=== PATIENT | male | born 1940 | race Caucasian/White ===

== ENCOUNTER 2023-11-24 09:50 | Observation (INO) ==
--- NOTE | 2023-11-24 11:24 | History & Physical Bridge Note ---
Date of Service November 24, 2023 History & Physical Bridge Note I have examined the patient, reviewed the History & Physical and in the interval since the performance of the History & Physical I have noted the following changes of clinical significance: no changes noted
--- NOTE | 2023-11-24 11:25 | Pre Anesthesia Assessment ---
Date of Service November 24, 2023 Pre Sedation Assessment Vital Signs Pulse Resp BP Pulse Ox O2 Del Method 11/24/23 10:14 16 11/24/23 10:14 68 16 153/91 H 96 Room Air Cardiovascular + regular rate and + regular rhythm + S1 normal and + S2 normal; no murmur + femoral pulses present and + radial pulses present; no JVD and no carotid bruit no edema Respiratory + respiratory effort normal; no respiratory distress and no labored breathing + clear to auscultation bilaterally; no crackles, no rales, no rhonchi and no wheezes Pre-Sedation Airway Assessment Smoking Status: Never smoker Hx Sleep Apnea: No Short, Thick Neck: Yes Thyromental Distance: < 3.5 Finger Breadths Oral Cavity: + WNL Mallampati Class: III ASA: ASA3 NPO Status Date of Last Intake of Fluids: 11/24/23 Time of Last Intake of Fluids: 08:00 Date of Last Intake of Solid Food: 11/23/23 Time of Last Intake of Solid Foods: 21:00 Procedure Planning Contraindications for Sedation: none Current Medications Reviewed: Yes Notes The planned sedation has been discussed with the patient. Informed Consent was obtained. I have identified the patient, determined the appropriateness of sedation and have assessed the patient immediately prior to the procedure. All medicine(s) and interventions are by my order.
--- NOTE | 2023-11-24 12:54 | Post Anesthesia Assessment ---
Date of Service November 24, 2023 Post Sedation Assessment Vital Signs Temp Pulse Pulse Pulse Resp BP BP 11/25/23 14:22 36.5 C 64 74 18 152/73 H 139/70 11/25/23 11:03 36.5 C 74 18 139/70 11/25/23 08:00 60 11/25/23 08:00 11/25/23 07:24 36.7 C 63 20 138/80 11/25/23 04:02 36.6 C 64 19 152/73 H 11/25/23 00:43 36.8 C 61 20 144/78 H 11/24/23 22:00 63 11/24/23 20:27 36.9 C 58 L 19 124/73 11/24/23 19:15 11/24/23 16:38 60 20 113/68 11/24/23 16:19 11/24/23 16:15 59 L 11/24/23 15:45 36.8 C 62 18 148/77 H 11/24/23 15:15 60 20 142/79 H 11/24/23 15:00 59 L 20 129/70 11/24/23 14:45 60 20 122/76 Pulse Ox O2 Del Method 11/25/23 14:22 95 11/25/23 11:03 95 Room Air 11/25/23 08:00 11/25/23 08:00 Room Air 11/25/23 07:24 95 Room Air 11/25/23 04:02 95 Room Air 11/25/23 00:43 95 Room Air 11/24/23 22:00 11/24/23 20:27 94 Room Air 11/24/23 19:15 Room Air 11/24/23 16:38 96 Room Air 11/24/23 16:19 Room Air 11/24/23 16:15 11/24/23 15:45 96 Room Air 11/24/23 15:15 94 Room Air 11/24/23 15:00 95 Room Air 11/24/23 14:45 93 Room Air Recovery Score Activity: Moves 4 extremities Respiration: Deep Breath/Cough Circulation: +/-20% PreAnes Value Consciousness: Arouseable (by name) Oxygen Saturation: > 92% On Room Air Discharge Sedation Level of Care: Phase I Post Sedation Plan On clinical assessment, the patient appears to have tolerated the sedation without complications. Patient is recovering as anticipated. Patient will continue to be monitored by nursing and may be discharged when sedation discharge criteria are met per below protocol. Upon Completions of procedure up to 15 minutes continue every 5 minute vital signs and the P.A.R. score; then discharge to a Phase I or Fast Track to Phase II per the following guidelines: * Discharge Patient to appropriate Phase II area if PAR is 8 or greater or return to pre- procedure baseline. The post - procedure orders will be as directed. * If PAR score is less than 8 or not return to pre-procedure baseline then patient will follow Phase I monitoring till PAR is reached for Phase II. The Phase I may be done in procedure room or may call to secure a Phase I area. * If naloxone or flumazenil are used for reversal, hold in Phase I for continued monitoring from when last reversal dose was given for a minimum of 60 minutes or longer pending the nurse and/or physician discretion of patient condition before discharge to Phase II. Please call the Sedation Physician to re-evaluate and complete post-note for discharge to Phase II area. Do NOT discharge from procedure sedation or Phase 1 until post- sedation trav luation note is complete by procedure /sedation MD Sedation Discharge Instructions to be given to the patient at discharge to home.
--- NOTE | 2023-11-24 13:01 | Cardiac Catheterization ---
Cardiac Cath Procedure Full Procedure Date November 24, 2023 Pre-Procedure Diagnosis Pre-Procedure Diagnosis: Angina and Positive Stress Test AUC Score AUC Score: 7 Post-Procedure Diagnosis Post-Procedure Diagnosis: Severe CAD and Normal Intracardiac Pressures Procedure(s) Performed Procedure(s) Performed: Coronary Angiography and Left Heart Cath Needle Polisher Long Bowers DO Dialysis Social Worker(s) Justyna RTR Estimated Blood Loss Estimated Blood Loss: 5cc Medication(s) Medication(s): Fentanyl, Heparin, Lidocaine 1%, Nicardipine, Nitroglycerin and Versed Summary of Findings 80% mid LAD Severe, diffusely diseased proximal ramus (small vessel) 90% proximal OM1 (small to moderate caliber vessel) Hemodynamics Rest Ao:: 110/62/100 Final Ao: 117/60/82 LV: 120/6/12 Recommendations Recommendations: PCI without planned CABG Specimens Specimens: None Radiation Exposure (mGy) 1124 Contrast (mls) 50 Fluids (cc crystalloids) Fluids (cc crystalloids): 53 Nss Anesthesia Moderate sedation. Start 1215. End 1245. Sedation monitor: Yareli ESTRELLA Procedural Complication(s) None Disposition Patient remained in Manager Pathology for PCI of the LAD. I attest to the content of the Intraoperative Record and any orders documented therein. Any exceptions are noted below. [facility] Data: Manager Pathology Cardiac Status Clinical evaluation leading to the procedure 83-year-old male with exertional shortness of breath and intermittent chest discomfort. Lexiscan nuclear stress test performed demonstrating apical ischemia. CAD Presenation: Stable angina Anginal Classification: CCS III Heart Failure: No Coronary Anatomy Dominant: Right Left Main (% Stenosis): Normal LAD (% Stenosis): Ostial (30%), Proximal (20% tubular, severe calcification), Mid (80%) and Distal (30% diffuse) Circumflex (% Stenosis): Distal (20%) OM1 (% Stenosis): Proximal (90%) OM2 (% Stenosis): Proximal (Luminal irregularities, 10%) RCA (% Stenosis): Proximal (Luminal irregularities, 20%), Mid (Luminal irregularities, 20%) and Distal (Luminal irregularities, 10%) R PDA (% Stenosis): Proximal (20%) R PL1 (% Stenosis): Normal R PL2 (% Stenosis): Normal Ramus (% Stenosis): Proximal (Severe diffuse disease, 90%) Diagnostic Physicians Name: Long Bowers, DO Closure Device Percutaneous Entry Location: Radial Closure Device: Radial Band Recommendations: PCI without planned CABG Intraprocedure Events Significant Disection: No Perforation: No
[2023-11-24] MEDS: HEPARIN (PORCINE) 1000 UNIT/ML 10 ML (CATH LAB USE ONLY) ONE (13:19)
[2023-11-24] MEDS: fentaNYL citrate PF 100 MCG/2 ML VIAL ONE (13:19)
[2023-11-24] MEDS: MIDAZOLAM HCL 1 MG/ML 2ML VIAL ONE (13:19)
[2023-11-24] MEDS: NITROGLYCERIN/D5W 100MCG/ML 20ML SYR ONE (13:20)
[2023-11-24] MEDS: niCARdipine HCL INJ 2.5 MG/ML 10 ML AMP ONE (13:20)
[2023-11-24] MEDS: IODIXANOL (VISIPAQUE) 320 MG/ML 100ML IV ONE (13:20)
[2023-11-24] MEDS: OPTIRAY 350 ONE (13:21)
--- NOTE | 2023-11-24 13:22 | Post Anesthesia Assessment ---
Date of Service November 24, 2023 Post Sedation Assessment Vital Signs Pulse Resp BP Pulse Ox O2 Del Method 11/24/23 10:14 16 11/24/23 10:14 68 16 153/91 H 96 Room Air Recovery Score Activity: Moves 4 extremities Respiration: Deep Breath/Cough Circulation: +/-20% PreAnes Value Consciousness: Fully Awake Oxygen Saturation: > 92% On Room Air Discharge Sedation Level of Care: Fast Track Phase II Post Sedation Plan On clinical assessment, the patient appears to have tolerated the sedation without complications. Patient is recovering as anticipated. Patient will continue to be monitored by nursing and may be discharged when sedation discharge criteria are met per below protocol. Upon Completions of procedure up to 15 minutes continue every 5 minute vital signs and the P.A.R. score; then discharge to a Phase I or Fast Track to Phase II per the following guidelines: * Discharge Patient to appropriate Phase II area if PAR is 8 or greater or return to pre- procedure baseline. The post - procedure orders will be as directed. * If PAR score is less than 8 or not return to pre-procedure baseline then patient will follow Phase I monitoring till PAR is reached for Phase II. The Phase I may be done in procedure room or may call to secure a Phase I area. * If naloxone or flumazenil are used for reversal, hold in Phase I for continued monitoring from when last reversal dose was given for a minimum of 60 minutes or longer pending the nurse and/or physician discretion of patient condition before discharge to Phase II. Please call the Sedation Physician to re-evaluate and complete post-note for discharge to Phase II area. Do NOT discharge from procedure sedation or Phase 1 until post- sedation evaluation note is complete by procedure /sedation MD Sedation Discharge Instructions to be given to the patient at discharge to home.
--- NOTE | 2023-11-24 13:30 | Cardiac Catheterization ---
[facility] Data: Leak Inspector Cardiac Status Clinical evaluation leading to the procedure CAD Presenation: Positive Stress Test Anginal Classification: CCS III Diagnostic Physicians Name: Jaspal Isabel MD Closure Device Recommendations: PCI without planned CABG Cardiac Cath Procedure Full Procedure Date November 24, 2023 Pre-Procedure Diagnosis Pre-Procedure Diagnosis: Angina and Positive Stress Test AUC Score AUC Score: 7 Post-Procedure Diagnosis Post-Procedure Diagnosis: Severe CAD and Successful PCI Procedure(s) Performed Procedure(s) Performed: Coronary Angiography and Drug Eluting Stent Cylinder Valve Repairer Jaspal Isabel MD Chair Installer(s) Justyna RTR Estimated Blood Loss Estimated Blood Loss: 10 Medication(s) Medication(s): Clopidogrel, Fentanyl, Heparin, Nicardipine, Nitroglycerin and Versed Summary of Findings Indication: Abnormal stress test, exertional chest symptoms Access: 6 Fr right radial artery Catheters: EBU 3.5 guide Findings: For full details of patient's coronary angiography please see cath report dictated by Dr. Bowers. Briefly, patient found to have severe mid LAD disease. Decision to proceed with PCI. -- PCI -- Antithrombotic therapy: Heparin, clopidogrel Procedure: Left main cannulated with EBU 3.5 guide Pre-procedure flow GIOVANNI 3 Heel Cementer Machine 50 wire passed across lesion into distal vessel Mid LAD lesion predilated with 2.5 compliant balloon Dilated lesion stented with 2.75 x 18 mm Neftaly drug-eluting stent Stent post-dilated with 3.25 noncompliant balloon IC vasodilators administered for spasm Post procedure GIOVANNI 3 flow, stent well expanded with minimal residual stenosis and no apparent cardiac complications. Arterial Closure: TR band Summary: 1. Successful PCI of mid LAD with single drug-eluting stent (2.75 x 18 mm Neftaly AR: Postdilated with 3.25 NC). Recommendations: To PCU for continued monitoring Loaded with clopidogrel 600 mg in Leak Inspector Dual therapy with clopidogrel, Eliquis for at least 6 months Continue statin, and ASCVD risk factor modification Consult cardiac Rehab Medical management of small branch vessel disease. If refractory symptoms PCI of small OM could be considered. Hemodynamics Rest Ao:: 110/62/100 Final Ao: 91/58/72 LV: 124/13 Recommendations Recommendations: PCI without planned CABG Specimens Specimens: None Radiation Exposure (mGy) 2130 Contrast (mls) 80 Anesthesia Moderate sedation. Start 1245. End 1314. Sedation monitor: Yareli ESTRELLA Procedural Complication(s) None Disposition PCU I attest to the content of the Intraoperative Record and any orders documented therein. Any exceptions are noted below. [facility] Card Cath Procedure Codes Moderate Sedation Procedure 1: Sedation/Anesthesia: 99855 Mod Sedation by the same physician; Ea [id number] Minutes Stenting Procedure 1: Cardiovascular Stent Procedures: 54912 Perc transcatheter placement of intracoronary stent(s), with ang PG Care Time/CCT Total # of Minutes Spent Total Time Spent with Patient: Total time spent is greater than 50% in coordination of care (as documented) at patient's floor/unit and/or counseling patient:
[2023-11-24] MEDS: CLOPIDOGREL BISULFATE 300 MG TAB ONE (13:32)
[2023-11-24] MEDS: SODIUM CHLORIDE 0.9% 750 ML IV SCH (15:52)
--- NOTE | 2023-11-24 17:10 | History & Physical Report ---
Date of Service November 24, 2023 Assessment & Plan (1) CAD (coronary artery disease): (2) A-fib: (3) Chronic anticoagulation: (4) Diabetes: (5) HTN (hypertension): (6) Hypothyroidism: Plan Mr. Dunn is an 83-year-old male that was admitted directly after cardiac catheterization for atypical chest pain with exertional dyspnea with an abnormal Lexiscan nuclear stress test showing apical ischemia in the distal LAD and L circumflex which took place 10/22/2023. As an outpatient, risk factors and PCI were discussed at length and patient proceeded for catheterization under the care of of Dr. Bowers and Dr. Isabel today with a drug-eluting stent placed in the mid-LAD. 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 September 2022 Zio monitor was evaluated with underlying rhythm sinus rhythm with 3 SVT runs with a 6 beat max. Patient admitted for continued evaluation post PCI. Interventional cardiology added Plavix to medication regimen, will trend labs in a.m. CAD: Acute Underwent PCI s/p exertional SOB with intermittent chest discomfort Failed Lexiscan nuc stress test showing apical ischemia on 10/22/23 with mild ischemia to the mid- LAD/circ artery. Admit PCU post cath JEN placed in LAD; loaded with Plavix intra-cath; continue Plavix 65 mg PO daily as outlined by interventional Cardiology TR band site without bleeding Continue baby ASA and medicinally directed therapy as outlined by interventional cardiology Atrial Fibrillation: Chronic anticoagulation: Chronic CHADsVASc: 4 (Age, DM, HTN); moderate-high risk Takes Eliquis; continue Takes Metoprolol;continue HTN: Chronic Takes HCTZ; continue Diabetes Mellitus: Chronic Takes 70/30 Most recent A1C: 10/25/23 8.0 Hypothyroidism: Chronic Takes levothyroxine;continue Most recent TSH 6.66 10/25/23 Disposition: PCP: Dr. Hartley Code Status: Full Code VTE Prophylaxis: On Eliquis I spent a total of 86 minutes coordinating, documenting, and providing care for this patient excluding time spent in the performance of separately billed services. All of the aforementioned completed while collaborating with the assigned attending physician for a full treatment plan. Please see their addendum for further details. Admission and Anticipated Discharge Date Admission Date: November 24, 2023 History of Present Illness Chief Complaint: abnormal stress test Primary Care Provider: Dr. Hartley Mr. Dunn is an 83-year-old male that was admitted directly after cardiac catheterization for atypical chest pain with exertional dyspnea with an abnormal Lexiscan nuclear stress test showing apical ischemia in the distal LAD and L circumflex which took place 10/22/2023. As an outpatient, risk factors and PCI were discussed at length and patient proceeded for catheterization under the care of of Dr. Bowers and Dr. Isabel today with a drug-eluting stent placed in the LAD. 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 September 2022 Zio monitor was evaluated with underlying rhythm sinus rhythm with 3 SVT runs with a 6 beat max. Father at 51 status post AMI Mom diabetes/CHF at age 76 No tobacco use, alcohol or recreational drug use including medical marijuana. Previous surgical history includes umbilical hernia repair, appendectomy 20 years ago, carpal tunnel surgery 8 years ago. Pt denies THORPE, dizziness, chest pain, palpitations, orthopnea, swelling, lightheadedness, fever, chills, urine or bowel changes, recent falls or trauma. Patient sitting upright in his hospital bed in no apparent distress. His T-band has been removed with no signs of bleeding. Tolerated a diet well with no N/V. Patient admitted for continued evaluation post PCI with JEN to LAD; cardiology to do medically directed therapy post cath. Interventional cardiology added Plavix to medication regimen which was bolused in the laboratory inspector and will continue tomorrow morning, will trend labs in a.m. Allergies Allergy/AdvReac Type Severity Reaction Status Date / Time No Known Allergies Allergy Unverified 10/16/23 20:29 Home Medications Medication Instructions Recorded Confirmed Type apixaban 5 mg tablet (Eliquis) 5 mg PO BID 10/16/23 11/24/23 History ascorbic acid (vitamin C) 1,000 mg 1 g PO DAILY 10/16/23 11/24/23 History tablet (Vitamin C) aspirin 81 mg tablet,delayed 81 mg PO DAILY 10/16/23 11/24/23 History release atorvastatin 40 mg tablet 40 mg PO HS 10/16/23 11/24/23 History calcium carbonate 600 mg-vitamin 1 tab PO DAILY 10/16/23 11/24/23 History D3 20 mcg (800 unit) tablet cetirizine 10 mg tablet 10 mg PO DAILY 10/16/23 11/24/23 History cholecalciferol (vitamin D3) 25 25 mcg PO DAILY 10/16/23 11/24/23 History mcg (1,000 unit) tablet (Vitamin D3) cyanocobalamin (vitamin B-12) 1,000 mcg PO DAILY 10/16/23 11/24/23 History 1,000 mcg tablet (Vitamin B-12) ferrous sulfate 325 mg (65 mg 325 mg PO DAILY 10/16/23 11/24/23 History iron) tablet (iron) fluticasone 250 mcg-salmeterol 50 1 inh inhalation BID 10/16/23 11/24/23 History mcg/dose blistr powdr for inhalation (Wixela Inhub) hydrochlorothiazide 25 mg tablet 12.5 mg PO DAILY 10/16/23 11/24/23 History insulin aspar prot-insulin aspart 150 - 200 unit subcut BID per 10/16/23 11/24/23 History 100 unit/mL (70-30) subcutaneous sliding scale pen (Novolog Mix 70-30FlexPen U-100) levothyroxine 200 mcg tablet 200 mcg PO DAILY 10/16/23 11/24/23 History magnesium 250 mg tablet 250 mg PO DAILY 10/16/23 11/24/23 History metoprolol succinate 100 mg 100 mg PO DAILY 10/16/23 11/24/23 History tablet,extended release 24 hr (Toprol XL) [id number] 250 mg-dha 90 1 cap PO DAILY 10/16/23 11/24/23 History mg-epa 160 uu-fvuq-pjif-zeax capsule (Ocuvite Adult 50 Plus) potassium 99 mg tablet 99 mg PO DAILY 10/16/23 11/24/23 History selenium 200 mcg tablet 200 mcg PO DAILY 10/16/23 11/24/23 History vitamin A 2,400 mcg capsule 2,400 mcg PO DAILY 10/16/23 11/24/23 History levothyroxine 50 mcg capsule 50 mcg PO DAILY 11/24/23 11/24/23 History losartan 25 mg tablet 25 mg PO 11/24/23 History Past Med/Surg History Medical History (Updated 11/24/23 @ 17:45 by VINOD Ybarra) CAD (coronary artery disease) Hypothyroidism Chronic anticoagulation A-fib HTN (hypertension) Surgical History (Updated 11/24/23 @ 17:58 by VINOD Ybarra) H/O hernia repair History of carpal tunnel surgery History of appendectomy Family History (Updated 11/24/23 @ 17:57 by VINOD Ybarra) Father Coronary heart disease Myocardial infarction Mother Diabetes Social History (Updated 11/24/23 @ 17:57 by VINOD Ybarra) Smoking Status: Never smoker Second Hand Exposure: No; Do You Dip or Chew Tobacco: No; Tobacco Cessation Education Requested by Patient: No Hx Alcohol Use: No Hx Substance Use: No Preferred Language: French Current Living Situation: Spouse Feels Safe at Home: Yes Review of Systems Review of Systems: Neuro: (-) Falls, trauma, slurred speech HEENT: (-) THORPE, dizziness, dysphagia, visual or auditory changes CV: (-) CP, palpitations, swelling Resp: (-) SOB GI: (-) appetite changes, N/V/D, bowel changes : (-) urinary changes Skin: (-) rashes Psych: (-) anxiety, depression Physical Exam Physical Exam: Neuro: AAOx4, PERRLA, no aphagia, memory changes, CNII-XII grossly intact HEENT: head normocephalic, moist mucus membranes CV: S1/S2, (-) M/G/R, (-) edema, cap refill < 3 seconds Resp: Lungs CTA in all arreguin. On RA GI: Abdomen S/NT/ND, Ax4 bowel sounds, (-) CVA tenderness Musculoskeletal: 5/5 B/L UE strength, 5/5 B/L LE strength. No gait disturbance Skin: (-) rashes , (-) erythema. (+)right tr-band site without bleeding Psych: euthymic mood Results & Data Results & Data Vital Signs (Past 12 Hours) Vital Signs Temp Pulse Pulse Resp BP BP Pulse Ox 11/24/23 16:38 60 20 113/68 96 11/24/23 16:19 11/24/23 16:15 59 L 11/24/23 15:45 36.8 C 62 18 148/77 H 96 11/24/23 15:15 60 20 142/79 H 94 11/24/23 15:00 59 L 20 129/70 95 11/24/23 14:45 60 20 122/76 93 11/24/23 14:30 58 L 20 118/67 93 11/24/23 14:15 60 20 112/68 93 11/24/23 14:00 63 20 143/90 H 93 11/24/23 13:45 62 20 128/69 94 11/24/23 13:30 62 20 112/70 94 11/24/23 13:20 61 20 118/69 92 11/24/23 10:14 16 11/24/23 10:14 68 16 153/91 H 96 O2 Del Method 11/24/23 16:38 Room Air 11/24/23 16:19 Room Air 11/24/23 16:15 11/24/23 15:45 Room Air 11/24/23 15:15 Room Air 11/24/23 15:00 Room Air 11/24/23 14:45 Room Air 11/24/23 14:30 Room Air 11/24/23 14:15 Room Air 11/24/23 14:00 Room Air 11/24/23 13:45 Room Air 11/24/23 13:30 Room Air 11/24/23 13:20 Room Air 11/24/23 10:14 11/24/23 10:14 Room Air Code Status & VTE Plan VTE Prophylaxis Plan VTE Prophylaxis will be ordered: Yes Supervising Physician Co-Signing Physician Notes Pt seen and examined by myself, Rita Rangel MD on the day of service. Care was coordinated with , KATE/VINOD. 83yoM with PMHx significant for DMII, HTN, HLD s/p PCI with stent placement in the LAD on 11/24. Medicine consulted for DM/med management. Seen post-procedure, was resting comfortably, sitting up in bed. at bedside. Denied acute symptoms of chest pain, SOB, palpitations or pain. RRR, breath sounds clear on exam. Appreciate interventional and cardiology recs for guideline directed med management- question of whether pt takes ARB or not, on pharmacy med list. DMII- ISS while hospitalized, holding home regimen while hospitalized. Otherwise as above. I spent a total [id number] coordinating, documenting, and providing care for this patient excluding time spent in the performance of separately billed services
[2023-11-24] MEDS: ATORVASTATIN 40 MG TAB PO SCH (20:32)
[2023-11-24] MEDS: APIXABAN 5 MG TABLET PO SCH (20:32)
--- OUTSIDE RECORDS SUMMARY | 2023-11-24 22:38 | External Medical Summary | Summary of Care ---
Author Name Unknown Organization [facility] Address [address] [facility] [place] [address] Phone [phone] Care Team Providers Care Terminal Computer Operator Name Role Phone Milton Hartley MD Primary Care Provider + Reason for Visit * Reason Onset Date Comments Advice 11/11/2023 Encounter Details Date Type Department Care Team (Late st Contact Info) Description 11/11/2023 Telephone Cardiology, [facility] [address] [place] [address] Karan Cunningham PA-C [address] [place] [address] Advice Allergies Active Allergy Reactions Criticality Noted Date Comments Ariel Inhibitors Cough 03/10/2022 Enalapril Cough 12/14/2022 Mod cough noted on scanned records from pcp Metformin Diarrhea 12/14/2022 Moderate diarrhea per scanned records from PCP Pioglitazone Hcl-Glimepiride 023 Severe SOB noted on scanned records from pcp documented as of this encounter (statuses as of 11/12/2023) Medications Medication Sig Dispensed Refills Start Date End Date Status Calcium 600+D 600-800 MG-UNIT Oral Tablet (Calcium Carb-Cholecalcifer ol) Take 1 Tab by mouth daily. 0 Active Vitamin C 1000 MG Oral Tablet Take 1 Tablet by mouth in the morning. 0 Active Ocuvite Adult Formula Oral Capsule Take 1 Cap by mouth daily. 0 Active Vitamin A 2400 MCG (8000 UT) Oral Tablet Take 1 Tab by mouth daily. 0 Active Iron 325 (65 Fe) MG Oral Tablet Take 1 Tablet by mouth in the morning. 0 Active Magnesium 250 MG Oral Tablet Take 1 Tablet by mouth in the morning. 0 Active Vitamin B12 1000 MCG Oral Tablet Extended Release Take 1 Tab by mouth daily. 0 Active Selenium 200 MCG Oral Tablet Take 2 Tablets by mouth in the morning. 0 Active Vitamin D 25 MCG (1000 UT) Oral Tablet Take 1 Tablet by mouth in the morning. 0 Active Cetirizine HCl 10 MG Oral Tablet (ZyrTEC) Take 1 Tablet by mouth in the morning. 0 Active Atorvastatin Calcium 40 MG Oral Tablet (Lipitor) Take one tablet by mouth at bedtime 90 Tablet 1 05/25/2023 Active Levothyroxine Sodium 200 MCG Oral Tablet (Levoxyl) Take one tablet by mouth daily (at least 30 min prior to breakfast or other meds) 90 Tablet 2 05/25/2023 Active Apixaban 5 MG Oral Tablet (Eliquis) Take one tablet by mouth two times a day 6 Tablet 0 02/09/2023 Active Losartan Potassium 25 MG Oral Tablet (Cozaar) Take one tablet by mouth once daily 30 Tablet 3 09/29/2022 Active hydroCHLOROthiazid e 25 MG Oral Tablet (Hydrodiuril) Take one-half tablet by mouth daily 45 Tablet 2 05/25/2023 Active Toprol XL 100 MG Oral Tablet Extended Release 24 Hour take one tablet by mouth daily 90 Tablet 3 08/13/2023 Active NovoLOG Mix 70/30 FlexPen (70-30) 100 UNIT/ML Subcutaneous Suspension Pen-injector (NovoLOG MIX 70/30) injects 150 units under the skin twice a day 270 mL 3 08/23/2023 Active Fluticasone-Salmet sadie 250-50 MCG/ACT Inhalation Aerosol Powder Breath Activated (Wixela Inhub) 1 puff inhaled orally 2 times per day 180 Each 3 08/23/2023 Active Additional Information Patient taking differently:Inhalation,Patient taking once daily, Reported on 10/15/2023 BD Pen Needle Nikole U/F 32G X 4 MM (Insulin Pen Needle) use to inject insulin twice a day 200 Each 3 08/31/2023 Active [facility] Melatonin Gummies 1 MG Oral Tablet Chewable (Melatonin) Take 3 mg by mouth at bedtime. 0 Active Levothyroxine Sodium 50 MCG Oral Tablet (Levoxyl) Take 1 tablet by mouth daily in the morning along with the 200 mcg tablet. 90 Tablet 3 10/28/2023 Active Aspirin 81 MG Oral Capsule Take 1 Tablet by mouth in the morning. 0 Active Potassium Chloride Josefina ER 10 MEQ Oral Tablet Extended ReleaseIndications :Hypokalemia Take 1 Tablet by mouth once a day on Wednesday, Wednesday, and Wednesday only. 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) 10/11/2023 COVID-19, mRNA, LNP-s, PF, B ooster, 100mcg/0.5mg (Moderna) 01/13/2022,08/05/2021 Covid-19, Mrna, Lnp-s, Pf, B ivalent, 30 Mcg, IM, 12 yrs and above (Pfizer) 07/14/2022 Seasonal Influenza, Trivalent, Adjuvanted, 65+ y rs 10/06/2021 TD - Tetanus/Diptheria (ADULT) 06/23/2022 Zoster Vaccine Recombinant (Shingrix) 10/06/2021 documented as of this encounter Social History Tobacco Use Types Packs/Day Years Used Date Smoking Tobacco: Never Smokeless Tobacco: Never Alcohol Use Standard Drinks/Week Comments Yes 7 (1 standard drink = 0.6 oz pure alcohol) beer a night or every other night PHQ-2 Answer Date Recorded PHQ Adult Total Score 0 10/15/2023 Sex and Gender Information Value Date Recorded Sex Assigned at Male 10/14/2022 1:31 PM EST Gender Identity Male 10/14/2022 1:31 PM EST Sexual Orientation Straight 10/14/2022 1: 31 PM EST Job Start Date Occupation Industry Not on file Not on file Not on file documented as of this encounter Miscellaneous Notes * Telephone Encounter - Cristopher Del Cid RN - 11/12/2023 2:12 PM EST MY G sent to the patient. * Telephone Encounter - Karan Cunningham PA-C - 11/11/2023 12:45 PM EST Recommend continuing Levothyroxine at 250 mcg/day for now. Repeat TSH in late November or early December. Karan Cunningham PA-C Department of Cardiology * Telephone Encounter - Lorrie Mares OSA - 11/11/2023 12:13 PM EST Pt stopped by check out today after his EKG and asked that I send a message to Karan. Pt is wanting to know if he can increase his thyroid mediacation because he is still having irregular heartbeats. Please advise. documented in this encounter Plan of Treatment Upcoming Encounters Date Type Department Care Team (Late st Contact Info) Description 11/30/2023 10:20 AM EST Laboratory Laboratory [address] [place] [phone] [place] [address] 02/10/2024 1:00 PM EDT Office Visit Cardiology [address] [place] [address] Karan Cunningham PA-C [address] [place] [address] Health Maintenance Due Date Last Done Comments Pneumococcal Vaccine: 65+ Years (1 of 2 - PCV) 1946 Albumin/Creatinine Ratio 1958 Zoster Vaccines (2 of 2) 12/01/2021 10/06/2021 DTaP,Tdap,and Td Vaccines (1 - Tdap) 06/24/2022 06/23/2022 *SPIROMETRY ONCE FOR ASTHMA-ADULT 10/17/2022 Influenza Vaccine (FLU shot) (#1) 2023 10/06/2021, 10/06/2021 Diabetic Eye Exam 11/19/2023 11/19/2022, , 08/14/2021 HbA1c 04/24/2024 10/25/2023 Depression Screening 10/15/2024 10/15/2023 Diabetic Foot Exam 10/15/2024 10/15/2023 GFR 11/04/2024 11/04/2023, 09/28, 02/09/2023, Additional history exists TSH 11/04/2024 11/04/2023, 09/28, 10/16/2023, Additional history exists COVID-19 Vaccine Completed 10/11/2023, , 01/13/2022, Additional history exists GARDASIL-HPV IMMUNIZATION SERIES Aged Out No longer eligible based on patient's age to complete this topic Hepatitis B Aged Out No longer eligi ble based on patient's age to complete this topic MENINGOCOCCAL (MENACTRA/MENVEO) Aged Out No longer eligible based on patient's age to complete this topic documented as of this encounter Medical Devices Not on filedocumented as of this encounter Care Teams Terminal Computer Operator Relationship Specialty Start Date End Date Milton Hartley MD [address] [place] [address] PCP - General Internal Medicine 02/25/21 documented as of this encounter
--- OUTSIDE RECORDS SUMMARY | 2023-11-24 22:38 | External Medical Summary | Summary of Care ---
Author Name Unknown Organization [facility] Address [address] [facility] [place] [address] Phone [phone] Care Team Providers Care Firearms Inspector Name Role Phone Milton Hartley MD Primary Care Provider + Reason for Visit * Reason Onset Date Comments Medication Refill 11/11/2023 Encounter Details Date Type Department Care Team (Late st Contact Info) Description 11/11/2023 Refill Cardiology, [facility] [address] [place] [address] Elsy Abebe PA-C [address] [place] [address] Palpitations*; Paroxysmal A-fib (HCC); RASMUSSEN (dyspnea on exertion) Allergies Active Allergy Reactions Criticality Noted Date Comments Ariel Inhibitors Cough 03/10/2022 Enalapril Cough 12/14/2022 Mod cough noted on scanned records from pcp Metformin Diarrhea 12/14/2022 Moderate diarrhea per scanned records from PCP Pioglitazone Hcl-Glimepiride 023 Severe SOB noted on scanned records from pcp documented as of this encounter (statuses as of 11/11/2023) Medications Medication Sig Dispensed Refills Start Date [...] ER 10 MEQ Oral Tablet Extended ReleaseIndications :Paroxysmal A-fib (HCC),RASMUSSEN (dyspnea on exertion),Palpitat ions Take 1 Tablet by mouth once a day on Wednesday, Wednesday, and Wednesday only. 40 Tablet 3 11/12/2023 Active Potassium Chloride Josefina ER 10 MEQ Oral Tablet Extended ReleaseIndications :Hypokalemia Take 1 Tablet by mouth once a day on Wednesday, Wednesday, and Wednesday only. 14 Tablet 5 10/20/2023 4 Discontinue d(Refill) documented as of this encounter (statuses as of 11/11/2023) Active Problems Problem Noted Date Diagnosed Date [...] as of this encounter (statuses as of 11/11/2023) Immunizations Name Administration Dates Next Due COVID-19 mRNA, LNP-s, No Pre serve, 2-Dose Series (Moderna) 11/22/2020,10/25/2020 COVID-19, MRNA-LNP, 23-24, P F, 30 MCG/0.3 mL, 12 YRS AND ABOVE, IM ([facility]) 10/11/2023 COVID-19, mRNA, LNP-s, PF, B ooster, [...] encounter Miscellaneous Notes * Telephone Encounter - Elsy Abebe PA-C - 11/11/2023 1:37 PM ESTSigned Prescriptions: Disp Refills Potassium Chloride Josefina ER 10 MEQ Oral Tab*40 Tab*3 Sig: Take 1 Tablet by mouth once a day on Wednesday, Wednesday, and Wednesday only. Authorizing Provider: ELSY ABEBE * Telephone Encounter - Nicolasa Palacio RN - 11/11/2023 1:30 PM ESTPending Prescriptions: Disp Refills Potassium Chloride Josefina ER 10 MEQ Oral Tab*40 Tab*3 Sig: Take 1 Tablet by mouth once a day on Wednesday, Wednesday, and Wednesday only. * Telephone Encounter - Nicolasa Palacio RN - 11/11/2023 1:28 PM EST Pharmacy asking for 90 day, this was ordered by Cardiology * Telephone Encounter - Vonda Olguin OSA - 11/11/2023 10:58 AM EST Did you pend patient's preferred pharmacy and medication before forwarding?yes Pharmacy: [id number] [id number] [facility] Pending Prescriptions: Disp Refills Potassium Chloride Josefina ER 10 MEQ Oral Ta*14 Tab*5 Sig: Take 1 Tablet by mouth once a day on Wednesday, Wednesday, and Wednesday only. Last Visit: 12/11/2022 (in office), Visit date not found (telemedicine) Next Visit: Visit date not found If no future appointments scheduled, and last appointment is greater than a year ago, please schedule patient for a follow-up appointment Last date the medication was ordered: 10/20/23 90 day supply request Is this request for a controlled substance?No Urine Drug Screen:No results found for this or any previous visit. Patient Phone Numbers Labs: Lab Results Component Value Date/Time CREAT 1.3 (H) 11/04/2023 02:50 PM CREAT 1.13 02/09/2023 12:00 AM POTASSIUM 4.1 11/04/2023 02:50 PM POTASSIUM 4.1 02/09/2023 12:00 AM TSH 6.66 (H) 11/04/2023 02:50 PM LDLCALC 10 02/09/2023 12:00 AM ALT 42 02/25/2021 10:57 AM documented in this encounter Plan of Treatment Upcoming Encounters Date Type Department Care Team (Late st Contact Info) Description 11/30/2023 10:20 AM EST Laboratory Laboratory [address] [place] [phone] [address] [place] [address] 02/10/2024 1:00 PM EDT Office Visit Cardiology [address] [place] [address] Elsy Abebe PA-C [address] [place] [address] Health Maintenance Due Date Last Done Comments Pneumococcal Vaccine: 65+ Years (1 - PCV) 1946 Albumin/Creatinine Ratio 1958 Hepatitis B (1 of 3 - Risk 3-dose series) 2000 Zoster Vaccines (2 of 2) 12/01/2021 10/06/2021 [...] Not on filedocumented as of this encounter Visit Diagnoses Diagnosis Palpitations- Primary Paroxysmal A-fib (HCC) Atrial fibrillation RASMUSSEN (dyspnea on exertion) Other dyspnea and respiratory abnormality documented in this encounter Care Teams Firearms Inspector Relationship Specialty Start Date End Date Milton Hartley MD [address] [place] [address] PCP - General Internal Medicine 02/25/21 documented as of this encounter
--- OUTSIDE RECORDS SUMMARY | 2023-11-24 22:39 | External Medical Summary | Summary of Care ---
Author Name Unknown Organization [facility] Address [address] [facility] [place] [address] Phone [phone] Care Team Providers Care Network Operations Center Technician Name Role Phone Milton Hartley MD Primary Care Provider + Reason for Visit * Reason Onset Date Comments Test Results 11/03/2023 Encounter Details Date Type Department Care Team (Late st Contact Info) Description 11/03/2023 Telephone Cardiology, [facility] [address] [place] [address] Karan Cunningham PA-C [address] [place] [address] Test Results Allergies Active Allergy Reactions Criticality Noted Date Comments Ariel Inhibitors Cough 03/10/2022 Enalapril Cough 12/14/2022 Mod cough noted on scanned records from pcp Metformin Diarrhea 12/14/2022 Moderate diarrhea per scanned records from PCP Pioglitazone Hcl-Glimepiride 023 Severe SOB noted on scanned records from pcp documented as of this encounter (statuses as of 11/05/2023) Medications Medication Sig Dispensed Refills Start Date End Date Status Calcium 600+D 600-800 MG-UNIT Oral Tablet (Calcium Carb-Cholecalciferol ) Take 1 Tab by mouth daily. 0 [...] once daily 30 Tablet 3 09/29/2022 Active hydroCHLOROthiazide 25 MG Oral Tablet (Hydrodiuril) Take one-half [...] a day 270 mL 3 08/23/2023 Active Fluticasone-Salmeter ol 250-50 MCG/ACT Inhalation Aerosol Powder Breath Activated [...] mg by mouth at bedtime. 0 Active Potassium Chloride Josefina ER 10 MEQ Oral Tablet Extended ReleaseIndications:H ypokalemia Take 1 Tablet by mouth once a day on Wednesday, Wednesday, and Wednesday only. 14 Tablet 5 10/20/2023 Active Levothyroxine Sodium 50 MCG Oral Tablet (Levoxyl) Take 1 tablet by mouth daily in the morning along with the 200 mcg tablet. 90 Tablet 3 10/28/2023 Active Aspirin 81 MG Oral Capsule Take 1 Tablet by mouth in the morning. 0 Active documented as of this encounter (statuses as of 11/05/2023) Active Problems Problem Noted Date Diagnosed Date [...] as of this encounter (statuses as of 11/05/2023) Immunizations Name Administration Dates Next Due COVID-19 mRNA, LNP-s, No Pre serve, 2-Dose Series (Moderna) 11/22/2020,10/25/2020 COVID-19, MRNA-LNP, 23-24, P F, 30 MCG/0.3 mL, 12 YRS AND ABOVE, IM ([facility]) 10/11/2023 COVID-19, mRNA, LNP-s, PF, B [...] encounter Miscellaneous Notes * Telephone Encounter - Sergio Umaña LPN - 11/03/2023 4:19 PM EST Sent patient a [employer] message to make aware. ----- Message from Karan Cunningham PA-C sent at 11/03/2023 1:12 PM EST ----- ok documented in this encounter Plan of Treatment Upcoming Encounters Date Type Department Care Team (Late st Contact Info) Description 11/30/2023 10:20 AM EST Laboratory Laboratory [address] [place] [phone] [address] [place] [address] 02/10/2024 1:00 PM EDT Office Visit Cardiology [address] [place] [address] Karan Cunningham PA-C [address] [place] [address] Health Maintenance Due Date Last Done Comments HbA1c 1946 Pneumococcal Vaccine: 65+ Years (1 - PCV) 1946 Albumin/Creatinine Ratio 1958 Hepatitis B (1 of 3 - Risk 3-dose series) 2000 Zoster Vaccines (2 of 2) 12/01/2021 10/06/2021 DTaP,Tdap,and Td Vaccines (1 - Tdap) 06/24/2022 06/23/2022 *SPIROMETRY ONCE FOR ASTHMA-ADULT 10/17/2022 Influenza Vaccine (FLU shot) (#1) 2023 10/06/2021, 10/06/2021 Diabetic Eye Exam 11/19/2023 11/19/2022, , 08/14/2021 Depression Screening 10/15/2024 10/15/2023 Diabetic Foot Exam 10/15/2024 10/15/2023 GFR 11/04/2024 11/04/2023, 01/25, 02/25/2021 TSH 11/04/2024 11/04/2023, 02/25/2021 COVID-19 Vaccine Completed 10/11/2023, , 01/13/2022, Additional history exists GARDASIL-HPV IMMUNIZATION SERIES Aged Out No longer eligible based on patient's age to complete this topic MENINGOCOCCAL (MENACTRA/MENVEO) Aged Out No longer eligible based on patient's age to complete this topic documented as of this encounter Medical Devices Not on filedocumented as of this encounter Care Teams Network Operations Center Technician Relationship Specialty Start Date End Date Milton Hartley MD [address] [place] [address] PCP - General Internal Medicine 02/25/21 documented as of this encounter
--- OUTSIDE RECORDS SUMMARY | 2023-11-24 22:39 | External Medical Summary | Summary of Care ---
Author Name Unknown Organization [facility] Address [address] [facility] [place] [address] Phone [phone] Care Team Providers Care Ribbon Cutter Name Role Phone Milton Hartley MD Primary Care Provider + Reason for Visit * Reason Onset Date Comments Test Results 11/05/2023 Encounter Details Date Type Department Care Team (Late st Contact Info) Description 11/05/2023 Telephone Cardiology, [facility] [address] [place] [address] Karan Cunningham PA-C [address] [place] [address] Test Results Allergies Active Allergy Reactions Criticality [...] MCG/0.3 mL, 12 YRS AND ABOVE, IM ([facility]) 10/11/2023 COVID-19, mRNA, LNP-s, PF, [...] Telephone Encounter - Sergio Umaña LPN - 11/05/2023 1:27 PM EST Sent patient a [employer] message to make aware. Labs ordered. ----- Message from Karan Cunningham PA-C sent at 11/05/2023 1:10 PM EST ----- Increase hydration. Stop ferrous sulfate Repeat TSH and CBC in 8 weeks documented in this encounter Plan of Treatment Upcoming Encounters Date Type Department Care Team (Late st Contact Info) Description 11/30/2023 10:20 AM EST Laboratory Laboratory [address] [place] [phone] [place] [address] [place] [address] 02/10/2024 1:00 PM EDT Office Visit Cardiology [address] [place] [address] Karan Cunningham PA-C [address] [place] [address] Scheduled Orders Name Type Priority Associated Diagnoses Orde r Schedule TSH WITH FREE T4 IF INDICATED Lab Routine Hypothyroidism due to acquired atrophy of thyroid Expected: 01/04/2024 (Approximate), Expires: 11/05/2024 CBC Lab Routine Abnormal CBC Expected: 01/04/2024 (Approximate), Expires: 11/05/2024 Health Maintenance Due Date Last Done Comments [...] as of this encounter Visit Diagnoses Diagnosis Abnormal CBC- Primary Other abnormal blood chemistry Hypothyroidism due to acquired atrophy of thyroid documented in this encounter Care Teams Ribbon Cutter Relationship Specialty Start Date End Date Milton Hartley MD [address] [place] [address] PCP - General Internal Medicine 02/25/21 documented as of this encounter
--- OUTSIDE RECORDS SUMMARY | 2023-11-24 22:39 | External Medical Summary | Summary of Care ---
Author Name Unknown Organization [facility] Address [address] [facility] [place] [address] Phone [phone] Care Team Providers Care Trauma Therapist Name Role Phone Milton Hartley MD Primary Care Provider + Reason for Visit * Reason Onset Date Comments Test Results 11/08/2023 Encounter Details Date Type Department Care Team (Late st Contact Info) Description 11/08/2023 Telephone Cardiology, [facility] [address] [place] [address] Karan Cunningham PA-C [address] [place] [address] Test Results Allergies Active Allergy Reactions Criticality Noted Date Comments Ariel Inhibitors Cough 03/10/2022 Enalapril Cough 12/14/2022 Mod cough noted on scanned records from pcp Metformin Diarrhea 12/14/2022 Moderate diarrhea per scanned records from PCP Pioglitazone Hcl-Glimepiride 023 Severe SOB noted on scanned records from pcp documented as of this encounter (statuses as of 11/08/2023) Medications Medication Sig Dispensed Refills Start Date [...] as of this encounter (statuses as of 11/08/2023) Active Problems Problem Noted Date Diagnosed Date [...] as of this encounter (statuses as of 11/08/2023) Immunizations Name Administration Dates Next Due COVID-19 mRNA, LNP-s, No Pre serve, 2-Dose Series (Moderna) 11/22/2020,10/25/2020 COVID-19, MRNA-LNP, 23-24, P F, 30 MCG/0.3 mL, 12 YRS AND ABOVE, IM ([facility]) 10/11/2023 COVID-19, mRNA, LNP-s, PF, B [...] encounter Miscellaneous Notes * Telephone Encounter - Leslie Bonilla CMA - 11/08/2023 12:10 PM EST My g sent. * Telephone Encounter - Leslie Bonilla CMA - 11/08/2023 12:09 PM EST ----- Message from Karan Cunningham PA-C sent at 11/06/2023 8:05 AM EST ----- CXR OK documented in this encounter Plan of Treatment Upcoming Encounters Date Type Department Care Team (Late st Contact Info) Description 11/30/2023 10:20 AM EST Laboratory Laboratory [address] [place] [phone] [facility] [address] [place] [address] 02/10/2024 1:00 PM EDT Office Visit Cardiology [address] [place] [address] Karan Cunningham PA-C [address] [place] [address] Health Maintenance Due Date Last Done Comments [...] filedocumented as of this encounter Care Teams Trauma Therapist Relationship Specialty Start Date End Date Milton Hartley MD [address] [place] [address] PCP - General Internal Medicine 02/25/21 documented as of this encounter
--- OUTSIDE RECORDS SUMMARY | 2023-11-24 22:39 | External Medical Summary ---
Author Name Unknown Address Unknown Organization [id number]:LABORATORY [facility] [place] [address] [place] [address] Laboratory Report Ordering Provider Test Date Status STEPH CHINO 11/04/2023 14:50:19 Final Anticoagulation may affect t esting. Refer to [facility] Test Catalog for a list of effects. Observation Date Value Abnormality Reference (Units ) Status aPTT panel - Platelet poor plasma 11/04/2023 14:50:19 39 Above high normal 21-38 (seconds) Final Performing Location LABORATORY [facility] - [address] [place] [address]
--- OUTSIDE RECORDS SUMMARY | 2023-11-24 22:39 | External Medical Summary ---
Author Name Unknown Address Unknown Organization [id number]:LAB[facility]ATORY [facility] [place] - [address] [place] [address] Laboratory Report Ordering Provider Test Date Status MIS CHIN 11/04/2023 14:50:06 Final Observation Date Value Abnormality Reference (Units ) Status Iron 11/04/2023 14:50:06 118 45-176 (ug /dL) Final Iron-binding capacity 11/04/2023 14:50:06 316 250-425 (ug/dL) Final Transferrin Sat % 11/04/2023 14:50:06 37 15 -55 (%) Final Performing Location LABORATORY [facility] - [address] [place] [address]
--- OUTSIDE RECORDS SUMMARY | 2023-11-24 22:39 | External Medical Summary | Summary of Care ---
Author Name Unknown Organization [facility] Address [address] [facility] [place] [address] Phone [phone] Care Team Providers Care Auto Parts Professional Name Role Phone Milton Hartley MD Primary Care Provider + Reason for Visit * Reason Onset Date Comments Test Results 11/03/2023 Encounter Details Date Type Department Care Team (Late st Contact Info) Description 11/03/2023 Telephone Cardiology, [facility] [address] [place] [address] Karan Cunningham PA-C [address] [place] [address] Test Results Allergies Active Allergy Reactions Criticality Noted Date Comments Ariel Inhibitors Cough 03/10/2022 Enalapril Cough 12/14/2022 Mod cough noted on scanned records from pcp Metformin Diarrhea 12/14/2022 Moderate diarrhea per scanned records from PCP Pioglitazone Hcl-Glimepiride 023 Severe SOB noted on scanned records from pcp documented as of this encounter (statuses as of 11/03/2023) Medications Medication Sig Dispensed Refills Start Date [...] as of this encounter (statuses as of 11/03/2023) Active Problems Problem Noted Date Diagnosed Date [...] as of this encounter (statuses as of 11/03/2023) Immunizations Name Administration Dates Next Due COVID-19 mRNA, LNP-s, No Pre serve, 2-Dose Series (Moderna) 11/22/2020,10/25/2020 COVID-19, MRNA-LNP, 23-24, P F, 30 MCG/0.3 mL, 12 YRS AND ABOVE, IM ([facility]) 10/11/2023 COVID-19, mRNA, LNP-s, PF, B [...] 11/03/2023 4:19 PM EST Sent patient a [employer] message to make aware. ----- Message from Karan Cunningham PA-C sent at 11/03/2023 1:12 PM EST ----- ok documented in this encounter Plan of Treatment Upcoming Encounters Date Type Department Care Team (Late st Contact Info) Description 11/30/2023 10:20 AM EST Laboratory Laboratory [address] [place] [phone] [address] [place] [address] 02/10/2024 1:00 PM EDT Office Visit Cardiology [address] [place] [address] Karan Cunningham PA-C [address] [place] [address] Health Maintenance Due Date Last Done Comments HbA1c 1946 Pneumococcal Vaccine: 65+ Years (1 - PCV) 1946 Albumin/Creatinine Ratio 1958 Hepatitis B (1 of 3 - Risk 3-dose series) 2000 Zoster Vaccines (2 of 2) 12/01/2021 10/06/2021 TSH 02/25/2022 02/25/2021 DTaP,Tdap,and Td Vaccines (1 - Tdap) 06/24/2022 06/23/2022 *SPIROMETRY ONCE FOR ASTHMA-ADULT 10/17/2022 Influenza Vaccine (FLU shot) (#1) 2023 10/06/2021, 10/06/2021 Diabetic Eye Exam 11/19/2023 11/19/2022, , 08/14/2021 GFR 02/10/2024 02/09/2023, 02/25/2021 Depression Screening 10/15/2024 10/15/2023 Diabetic Foot Exam 10/15/2024 10/15/2023 COVID-19 Vaccine Completed 10/11/2023, , 01/13/2022, Additional history exists GARDASIL-HPV IMMUNIZATION SERIES Aged Out No longer eligible based on patient's age to complete this topic MENINGOCOCCAL (MENACTRA/MENVEO) Aged Out No longer eligible based on patient's age to complete this topic documented as of this encounter Medical Devices Not on filedocumented as of this encounter Care Teams Auto Parts Professional Relationship Specialty Start Date End Date Milton Hartley MD [address] [place] [address] PCP - General Internal Medicine 02/25/21 documented as of this encounter
--- OUTSIDE RECORDS SUMMARY | 2023-11-24 22:39 | External Medical Summary | Summary of Care ---
Author Name Unknown Organization [facility] Address [address] [facility] [place] [address] Phone [phone] Care Team Providers Care Obstetric Assistant Name Role Phone Milton Hartley MD Primary Care Provider + Reason for Visit * Reason Onset Date Comments Test Results 11/03/2023 Encounter Details Date Type Department Care Team (Late st Contact Info) Description 11/03/2023 Telephone Cardiology, [facility] [address] [place] [address] Karan Cunningham PA-C [address] [place] [address] Test Results Allergies Active Allergy Reactions Criticality [...] MCG/0.3 mL, 12 YRS AND ABOVE, IM ([facility]) 10/11/2023 COVID-19, mRNA, LNP-s, PF, B [...] 11/03/2023 4:19 PM EST Sent patient a [employer] message to make aware. ----- Message from Karan Cunningham PA-C sent at 11/03/2023 1:12 PM EST ----- ok documented in this encounter Plan of Treatment Upcoming Encounters Date Type Department Care Team (Late st Contact Info) Description 11/30/2023 10:20 AM EST Laboratory Laboratory [address] [place] [phone] [address] [place] [address] 02/10/2024 1:00 PM EDT Office Visit Cardiology [address] [place] [address] Karan Cunningham PA-C [address] [place] [address] Health Maintenance Due Date Last Done Comments [...] filedocumented as of this encounter Care Teams Obstetric Assistant Relationship Specialty Start Date End Date Milton Hartley MD [address] [place] [address] PCP - General Internal Medicine 02/25/21 documented as of this encounter
--- OUTSIDE RECORDS SUMMARY | 2023-11-24 22:39 | External Medical Summary | Summary of Care ---
Author Name Unknown Organization [facility] Address [address] [facility] [address] Phone [phone] Care Team Providers Care Ski Lift Mechanic Name Role Phone Milton Hartley MD Primary Care Provider + Reason for Visit * Reason Comments Outpatient Testing Encounter Details Date Type Department Care Team (Late st Contact Info) Description 11/04/2023 2:50 PM EST Laboratory Laboratory [address] [place] [phone] [facility] [address] [place] [address] Hypokalemia; Hypothyroidism due to acquired atrophy of thyroid; Abnormal nuclear stress test; RASMUSSEN (dyspnea on exertion); Atypical chest pain; Tachy-daylin syndrome (HCC); Palpitations; Paroxysmal atrial fibrillation (HCC); Primary hypertension; Dyslipidemia, goal LDL below 70 Allergies Active Allergy Reactions Criticality Noted Date Comments Ariel Inhibitors Cough 03/10/2022 Enalapril Cough 12/14/2022 Mod cough noted on scanned records from pcp Metformin Diarrhea 12/14/2022 Moderate diarrhea per scanned records from PCP Pioglitazone Hcl-Glimepiride 023 Severe SOB noted on scanned records from pcp documented as of this encounter (statuses as of 11/04/2023) Medications Medication Sig Dispensed Refills Start Date [...] as of this encounter (statuses as of 11/04/2023) Active Problems Problem Noted Date Diagnosed Date [...] as of this encounter (statuses as of 11/04/2023) Immunizations Name Administration Dates Next Due COVID-19 mRNA, LNP-s, No Pre serve, 2-Dose Series (Moderna) 11/22/2020,10/25/2020 COVID-19, MRNA-LNP, 23-24, P F, 30 MCG/0.3 mL, 12 YRS AND ABOVE, [facility] 10/11/2023 COVID-19, mRNA, LNP-s, PF, B ooster, 100mcg/0.5mg (Moderna) 01/13/2022,08/05/2021 Covid-19, Mrna, Lnp-s, Pf, B ivalent, 30 Mcg, IM, 12 yrs and above ([facility]) 07/14/2022 Seasonal Influenza, Trivalent, Adjuvanted, 65+ y [...] on file documented as of this encounter Plan of Treatment Upcoming Encounters Date Type Department Care Team (Late st Contact Info) Description 11/30/2023 10:20 AM EST Laboratory Laboratory [address] [place] [phone] [place] [address] 02/10/2024 1:00 PM EDT Office Visit Cardiology [address] [place] [address] Karan Cunningham PA-C [address] [place] [address] Pending Results Name Type Priority Associated Diagnoses Date /Time BASIC METABOLIC PANEL Lab Routine Hypokalemia 11/04/2023 2:50 PM EST MAGNESIUM Lab Routine Hypokalemia 11/04/2023 2:50 PM EST TSH Lab Routine Hypothyroidism due to acquired atrophy of thyroid 11/04/2023 2:50 PM EST CBC WITH WBC DIFFERENTIAL Lab Routine Abnormal nuclear stress test RASMUSSEN (dyspnea on exertion) Atypical chest pain Tachy-daylin syndrome (HCC) Palpitations Paroxysmal atrial fibrillation (HCC) Primary hypertension Dyslipidemia, goal LDL below 70 Hypokalemia Hypothyroidism due to acquired atrophy of thyroid 11/04/2023 2:50 PM EST PT INR Lab Routine Abnormal nuclear stress test RASMUSSEN (dyspnea on exertion) Atypical chest pain Tachy-daylin syndrome (HCC) Palpitations Paroxysmal atrial fibrillation (HCC) Primary hypertension Dyslipidemia, goal LDL below 70 Hypokalemia Hypothyroidism due to acquired atrophy of thyroid 11/04/2023 2:50 PM EST CBC Lab Routine Abnormal nuclear stress test RASMUSSEN (dyspnea on exertion) Atypical chest pain Tachy-daylin syndrome (HCC) Palpitations Paroxysmal atrial fibrillation (HCC) Primary hypertension Dyslipidemia, goal LDL below 70 Hypokalemia Hypothyroidism due to acquired atrophy of thyroid 11/04/2023 2:50 PM EST DIFFERENTIAL, AUTOMATED Lab Routine Abnormal nuclear stress test RASMUSSEN (dyspnea on exertion) Atypical chest pain Tachy-daylin syndrome (HCC) Palpitations Paroxysmal atrial fibrillation (HCC) Primary hypertension Dyslipidemia, goal LDL below 70 Hypokalemia Hypothyroidism due to acquired atrophy of thyroid 11/04/2023 2:50 PM EST APTT Lab Routine Abnormal nuclear stress test RASMUSSEN (dyspnea on exertion) Atypical chest pain Tachy-daylin syndrome (HCC) Palpitations Paroxysmal atrial fibrillation (HCC) Primary hypertension Dyslipidemia, goal LDL below 70 Hypokalemia Hypothyroidism due to acquired atrophy of thyroid 11/04/2023 2:50 PM EST Health Maintenance Due Date Last Done Comments [...] as of this encounter Visit Diagnoses Diagnosis Hypokalemia Hypopotassemia Hypothyroidism due to acquired atrophy of thyroid Abnormal nuclear stress test Other nonspecific abnormal cardiovascular system function study RASMUSSEN (dyspnea on exertion) Other dyspnea and respiratory abnormality Atypical chest pain Other chest pain Tachy-daylin syndrome (HCC) Sinoatrial node dysfunction Palpitations Paroxysmal atrial fibrillation (HCC) Atrial fibrillation Primary hypertension Unspecified essential hypertension Dyslipidemia, goal LDL below 70 Other and unspecified hyperlipidemia documented in this encounter Care Teams Ski Lift Mechanic Relationship Specialty Start Date End Date Milton Hartley MD [address] [facility] [place] [address] PCP - General Internal Medicine 02/25/21 documented as of this encounter
--- OUTSIDE RECORDS SUMMARY | 2023-11-24 22:39 | External Medical Summary | Summary of Care ---
Author Name Unknown Organization [facility] Address [address] [facility] [place] [address] Phone [phone] Care Team Providers Care Mill Operator Helper Name Role Phone Milton Hartley MD Primary Care Provider + Reason for Visit * Reason Onset Date Comments Test Results 11/08/2023 Encounter Details Date Type Department Care Team (Late st Contact Info) Description 11/08/2023 Telephone Cardiology, [facility] [address] [place] [address] Karan Cunningham PA-C [address] [place] [address] Test Results Allergies Active Allergy Reactions Criticality Noted Date Comments Ariel Inhibitors Cough 03/10/2022 Enalapril Cough 12/14/2022 Mod cough noted on scanned records from pcp Metformin Diarrhea 12/14/2022 Moderate diarrhea per scanned records from PCP Pioglitazone Hcl-Glimepiride 023 Severe SOB noted on scanned records from pcp documented as of this encounter (statuses as of 11/10/2023) Medications Medication Sig Dispensed Refills Start Date [...] as of this encounter (statuses as of 11/10/2023) Active Problems Problem Noted Date Diagnosed Date [...] as of this encounter (statuses as of 11/10/2023) Immunizations Name Administration Dates Next Due COVID-19 mRNA, LNP-s, No Pre serve, 2-Dose Series (Moderna) 11/22/2020,10/25/2020 COVID-19, MRNA-LNP, 23-24, P F, 30 MCG/0.3 mL, 12 YRS AND ABOVE, IM ([facility]) 10/11/2023 COVID-19, mRNA, LNP-s, PF, B [...] encounter Miscellaneous Notes * Telephone Encounter - Nadege Murray OSA - 11/10/2023 11:21 AM EST Pt called back he is returning Gregs phone call Thank you RODERICK Alfonso * Telephone Encounter - Leslie Bonilla CMA [...] Description 11/30/2023 10:20 AM EST Laboratory Laboratory [address] [place] [phone] [place] [address] [place] [address] 02/10/2024 1:00 PM EDT Office Visit Cardiology [address] [place] [address] Karan Cunningham PA-Reyes [address] [place] [address] Health Maintenance Due Date Last Done Comments [...] filedocumented as of this encounter Care Teams Mill Operator Helper Relationship Specialty Start Date End Date Milton Hartley MD [address] [place] [address] PCP - General Internal Medicine 02/25/21 documented as of this encounter
--- OUTSIDE RECORDS SUMMARY | 2023-11-24 22:39 | External Medical Summary | Summary of Care ---
Author Name Unknown Organization [facility] Address [address] [facility] [place] [address] Phone [phone] Care Team Providers Care Manager Research Name Role Phone Milton Hartley MD Primary Care Provider + Reason for Visit * Reason Onset Date Comments Test Results 11/08/2023 Encounter Details Date Type Department Care Team (Late st Contact Info) Description 11/08/2023 Telephone Cardiology, [facility] [address] [place] [address] Karan Cunningham PA-C [address] [place] [address] Test Results Allergies Active Allergy Reactions Criticality [...] MCG/0.3 mL, 12 YRS AND ABOVE, IM ([facility]) 10/11/2023 COVID-19, mRNA, LNP-s, PF, B ooster, [...] Description 11/30/2023 10:20 AM EST Laboratory Laboratory [address] [place] [phone] [facility] [address] [place] [address] 02/10/2024 1:00 PM EDT Office Visit Cardiology [address] [place] [address] Karan Cunningham PA-C [address] [place] [address] Health Maintenance Due Date Last Done Comments [...] filedocumented as of this encounter Care Teams Manager Research Relationship Specialty Start Date End Date Milton Hartley MD [address] [place] [address] PCP - General Internal Medicine 02/25/21 documented as of this encounter
--- OUTSIDE RECORDS SUMMARY | 2023-11-24 22:39 | External Medical Summary | Summary of Care ---
Author Name Unknown Organization [facility] Address [address] [facility] [place] [address] Phone [phone] Care Team Providers Care Hospital Medicine Director Name Role Phone Milton Hartley MD Primary Care Provider + Encounter Details Date Type Department Care Team (Late st Contact Info) Description 11/11/2023 Orders Only Cardiology, [facility] [address] [place] [address] Karan Cunningham PA-C [address] [place] [address] Allergies Active Allergy Reactions Criticality Noted Date [...] MCG/0.3 mL, 12 YRS AND ABOVE, IM [facility] 10/11/2023 COVID-19, mRNA, LNP-s, PF, B ooster, [...] 11/30/2023 10:20 AM EST Laboratory Laboratory [address] [place] [phone] [place] [address] 02/10/2024 1:00 PM EDT Office Visit Cardiology [address] [place] [address] Karan Cunningham PA-C [address] [place] [address] Health Maintenance Due Date Last Done Comments [...] Not on filedocumented as of this encounter Procedures Procedure Name Priority Date/Time Associated Diagnosis Comments CHEMISTRY-OUTSIDE Routine 10/25/2023 TSH Routine 10/25/2023 CHEMISTRY-OUTSIDE Routine 10/16/2023 TSH Routine 10/16/2023 documented in this encounter Results * CHEMISTRY-OUTSIDE (10/25/2023) Not all results display below - see scan for full detail SCAN INCLUDES: A1C, TSH, PSA OUTSIDE LAB (SEE SCANNED REPORT) CREATININE-OUTSID E LAB OUTSIDE LAB (SEE SCANNED REPORT) EGFR-OUTSIDE LAB OUT SIDE LAB (SEE SCANNED REPORT) POTASSIUM-OUTSIDE LAB OUTSIDE LAB (SEE SCANNED REPORT) GLUCOSE-OUTSIDE LAB OUTSIDE LAB (SEE SCANNED REPORT) HOURS FASTING OUTSID E LAB (SEE SCANNED REPORT) TRIGLYCERIDES-OUT SIDE LAB OUTSIDE LAB (SEE SCANNED REPORT) CHOLESTEROL-OUTSI DE LAB OUTSIDE LAB (SEE SCANNED REPORT) HDL-OUTSIDE LAB OUTS LV LAB (SEE SCANNED REPORT) CHOL/HDL RATIO-OUTSIDE LAB OUTSIDE LA B (SEE SCANNED REPORT) LDL (CALCULATED)-OUTS LV LAB OUTSIDE LAB (SEE SCANNED REPORT) LDL (DIRECT MEASURE)-OUTSIDE LAB OUTSIDE LAB (SEE SCANNED REPORT) HEMOGLOBIN, [id number] LAB 8.0 OUTSIDE LAB (SEE SCANNED REPORT) PHOSPHORUS-OUTSID E LAB OUTSIDE LAB (SEE SCANNED REPORT) PTH-OUTSIDE LAB OUTS LV LAB (SEE SCANNED REPORT) MICROALBUMIN RATIO-OUTSIDE LAB OUTSIDE LA B (SEE SCANNED REPORT) PROTEIN, UA-OUTSIDE LAB OUTSIDE LAB (SEE SCANNED REPORT) HEMOGLOBIN-OUTSID E LAB OUTSIDE LAB (SEE SCANNED REPORT) 10/25/2023 History Per Patient LABORATORY Performing Organization Address [facility] Co de Phone Number OUTSIDE LAB (SEE SCANNED REPORT) * TSH (10/25/2023) TSH - OUTSIDE LAB 4.7 0.35 - 5.45 OUTSIDE LAB (SEE SCANNED REPORT) Blood Venous blood specimen / Unknown 10/25/2023 History Per Patient LAB BLOOD ORDERABLES Performing Organization Address [facility] Phone Number OUTSIDE LAB (SEE SCANNED REPORT) * TSH (10/16/2023) TSH - OUTSIDE LAB 10.869 OUTSIDE LAB (SEE SCANNED REPORT) Blood Venous blood specimen / Unknown 10/16/2023 History Per Patient LAB BLOOD ORDERABLES Performing Organization Address [facility] Phone Number OUTSIDE LAB (SEE SCANNED REPORT) * CHEMISTRY-OUTSIDE (10/16/2023) Pathologist [facility] Not all results display below - see scan for full detail SCAN INCLUDES: CBC, PT INR, PTT, CMP, LIPASE, TSH, FT4 OUTSIDE LAB (SEE SCANNED REPORT) CREATININE-OUTSID E LAB 1.20 OUTSIDE LAB (SEE SCANNED REPORT) EGFR-OUTSIDE LAB 55.6 OUT SIDE LAB (SEE SCANNED REPORT) POTASSIUM-OUTSIDE LAB 3.6 OUTSIDE LAB (SEE SCANNED REPORT) GLUCOSE-OUTSIDE LAB 144 OUTSIDE LAB (SEE SCANNED REPORT) HOURS FASTING OUTSID E LAB (SEE SCANNED REPORT) TRIGLYCERIDES-OUT SIDE LAB OUTSIDE LAB (SEE SCANNED REPORT) CHOLESTEROL-OUTSI DE LAB OUTSIDE LAB (SEE SCANNED REPORT) HDL-OUTSIDE LAB OUTS LV LAB (SEE SCANNED REPORT) CHOL/HDL RATIO-OUTSIDE LAB OUTSIDE LA B (SEE SCANNED REPORT) LDL (CALCULATED)-OUTS LV LAB OUTSIDE LAB (SEE SCANNED REPORT) LDL (DIRECT MEASURE)-OUTSIDE LAB OUTSIDE LAB (SEE SCANNED REPORT) HEMOGLOBIN, [id number] LAB OUTSIDE LAB (SEE SCANNED REPORT) PHOSPHORUS-OUTSID E LAB OUTSIDE LAB (SEE SCANNED REPORT) PTH-OUTSIDE LAB OUTS LV LAB (SEE SCANNED REPORT) MICROALBUMIN RATIO-OUTSIDE LAB OUTSIDE LA B (SEE SCANNED REPORT) PROTEIN, UA-OUTSIDE LAB OUTSIDE LAB (SEE SCANNED REPORT) HEMOGLOBIN-OUTSID E LAB 16.9 OUTSIDE LAB (SEE SCANNED REPORT) 10/16/2023 History Per Patient LABORATORY OUTSIDE LAB (SEE SCANNED REPORT) documented in this encounter Care Teams Hospital Medicine Director Relationship Specialty Start Date End Date Milton Hartley MD [address] [place] [address] PCP - General Internal Medicine 02/25/21 documented as of this encounter
--- OUTSIDE RECORDS SUMMARY | 2023-11-24 22:39 | External Medical Summary | Summary of Care ---
Author Name Unknown Organization [facility] Address [address] [facility] [place] [address] Phone [phone] Care Team Providers Care Engine Lathe Tender Name Role Phone Milton Hartley MD Primary Care Provider + Reason for Visit * Reason Onset Date Comments Test Results 11/03/2023 Encounter Details Date Type Department Care Team (Late st Contact Info) Description 11/03/2023 Telephone Cardiology, [facility] [address] [place] [address] Karan Cunningham PA-C [address] [place] [address] Test Results Allergies Active Allergy Reactions Criticality [...] MCG/0.3 mL, 12 YRS AND ABOVE, IM ([facility]) 10/11/2023 COVID-19, mRNA, LNP-s, PF, [...] Encounter - Cristopher Del Cid RN - 11/10/2023 11:43 AM EST Called and spoke to the patient. Patient rescheduled for heart cath at [facility] on 11/24/[address] Bowers. Patient to be there at 1000 am. He is to follow previous instructions given for his can that was to be done on 09/08/2024 and was cancelled. He stated he understood. He will be in tomorrow for his EKG. 11/11/2023 at 1100 am. * Telephone Encounter - Sergio Umaña LPN - 11/03/2023 4:19 PM EST Sent patient a [employer] message to make aware. ----- Message from Karan Cunningham PA-C sent at 11/03/2023 1:12 PM EST ----- ok documented in this encounter Plan of Treatment Upcoming Encounters Date Type Department Care Team (Late st Contact Info) Description 11/11/2023 11:00 AM EST Cardiac Studies Cardiac Studies, [facility] [address] [facility] [place] [address] 11/30/2023 10:20 AM EST Laboratory Laboratory [address] [place] [phone] [place] [address] 02/10/2024 1:00 PM EDT Office Visit Cardiology [address] [place] [address] Karan Cunningham PA-C [address] [place] [address] Health Maintenance Due Date Last Done Comments [...] Foot Exam 10/15/2024 10/15/2023 GFR 11/04/2024 11/04/2023, 0502/2023, 02/25/2021 TSH 11/04/2024 11/04/2023, 02/25/2021 COVID-19 Vaccine Completed 10/11/2023, , 01/13/2022, Additional history exists GARDASIL-HPV IMMUNIZATION SERIES Aged Out No longer eligible based on patient's age to complete this topic MENINGOCOCCAL (MENACTRA/MENVEO) Aged Out No longer eligible based on patient's age to complete this topic documented as of this encounter Medical Devices Not on filedocumented as of this encounter Care Teams Engine Lathe Tender Relationship Specialty Start Date End Date Milton Hartley MD [address] [place] [address] (work) PCP - General Internal Medicine 02/25/21 documented as of this encounter
--- OUTSIDE RECORDS SUMMARY | 2023-11-24 22:39 | External Medical Summary ---
Author Name Unknown Address Unknown Organization [id number]:LABORATORY [facility] [place] - [address] [facility] [place] [address] Laboratory Report Ordering Provider Test Date Status MIS CHIN 11/04/2023 14:50:06 Final Observation Date Value Abnormality Reference (Units ) Status SYNC LEUKOCYTES IN BLOOD BY AUTOMATED COUNT 11/04/2023 14:50:06 6.72 4.00-10.80 (K/uL) Final Segs 11/04/2023 14:50:06 64.1 40.0-75.0 (%) Final Lymphs % 11/04/2023 14:50:06 24.3 18.0-42.0 (%) Final Monos 11/04/2023 14:50:06 6.5 1.0-11.0 (%) Final Eosinophils 11/04/2023 14:50:06 4.3 0.0-6.0 (%) Final Basos 11/04/2023 14:50:06 0.7 0.0-2.0 (%) Final Immature Granulocyte, Percent 11/04/2023 14:50:06 0.1 0.0-2.0 (%) Final Absolute Segs 11/04/2023 14:50:06 4.30 1.80-7.70 (K/uL) Final Lymphs, absolute 11/04/2023 14:50:06 1.63 1.00-4.80 (K/ul) Final Monos, Abs 11/04/2023 14:50:06 0.44 0.00-1.10 (K/uL) Final Eos, Abs 11/04/2023 14:50:06 0.29 0.00-0.70 (K/uL) Final Basos, Abs 11/04/2023 14:50:06 0.05 0.00-0.20 (K/uL) Final Immature Granulocytes, Number 11/04/2023 14:50:06 0.01 0.00-0.20 (K/uL) Final Performing Location LABORATORY [facility] [place] - [facility] [address] [facility] [address]
--- OUTSIDE RECORDS SUMMARY | 2023-11-24 22:39 | External Medical Summary | Summary of Care ---
Author Name Unknown Organization [facility] Address [address] [facility] [place] [address] Phone [phone] Care Team Providers Care Ear Nose Throat Surgeon Name Role Phone Milton Hartley MD Primary Care Provider + Reason for Visit * Reason Onset Date Comments Test Results 11/03/2023 Encounter Details Date Type Department Care Team (Late st Contact Info) Description 11/03/2023 Telephone Cardiology, [facility] [address] [place] [address] Karan Cunningham PA-C [address] [place] [address] Test Results Allergies Active Allergy Reactions Criticality [...] MCG/0.3 mL, 12 YRS AND ABOVE, IM ([facility]) 10/11/2023 COVID-19, mRNA, LNP-s, PF, [...] 11/03/2023 4:19 PM EST Sent patient a BookTour message to make aware. ----- Message from Karan Cunningham PA-C sent at 11/03/2023 1:12 PM EST ----- ok documented in this encounter Plan of Treatment Upcoming Encounters Date Type Department Care Team (Late st Contact Info) Description 11/30/2023 10:20 AM EST Laboratory Laboratory [address] [place] [phone] [address] [place] [address] 02/10/2024 1:00 PM EDT Office Visit Cardiology [address] [place] [address] Karan Cunningham PA-C [address] [place] [address] Health Maintenance Due Date Last Done Comments [...] filedocumented as of this encounter Care Teams Ear Nose Throat Surgeon Relationship Specialty Start Date End Date Milton Hartley MD [address] [place] [address] PCP - General Internal Medicine 02/25/21 documented as of this encounter
--- OUTSIDE RECORDS SUMMARY | 2023-11-24 22:39 | External Medical Summary | Summary of Care ---
Author Name Unknown Organization [facility] Address [address] [facility] [place] [address] Phone [phone] Care Team Providers Care Teacher Assistant Name Role Phone Milton Hartley MD Primary Care Provider + Encounter Details Date Type Department Care Team (Late st Contact Info) Description 11/08/2023 Telephone Cardiology, [facility] [address] [place] [address] Karan Cunningham PA-C [address] [place] [address] Allergies Active Allergy Reactions Criticality Noted Date Comments Ariel Inhibitors Cough 03/10/2022 Enalapril Cough 12/14/2022 Mod cough noted on scanned records from pcp Metformin Diarrhea 12/14/2022 Moderate diarrhea per scanned records from PCP Pioglitazone Hcl-Glimepiride 023 Severe SOB noted on scanned records from pcp documented as of this encounter (statuses as of 11/09/2023) Medications Medication Sig Dispensed Refills Start Date [...] as of this encounter (statuses as of 11/09/2023) Active Problems Problem Noted Date Diagnosed Date HTN (hypertension) 10/14/2022 Type II diabetes mellitus with HbA1C goal to be determined 10/14/2022 Paroxysmal A-fib 10/14/2022 Dyslipidemia 10/14/2022 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 10/11/2023 COVID-19, mRNA, LNP-s, PF, B [...] Description 11/30/2023 10:20 AM EST Laboratory Laboratory [address] [place] [phone] [address] [place] [address] 02/10/2024 1:00 PM EDT Office Visit Cardiology [address] [place] [address] Karan Cunningham PA-C [address] [place] [address] Health Maintenance Due Date Last Done Comments [...] filedocumented as of this encounter Care Teams Teacher Assistant Relationship Specialty Start Date End Date Milton Hartley MD [address] [place] [phone] PCP - General Internal Medicine 02/25/21 documented as of this encounter
--- OUTSIDE RECORDS SUMMARY | 2023-11-24 22:39 | External Medical Summary ---
Author Name Unknown Address Unknown Organization [id number]:[facility] - [address] [facility] [address] [place] [address] Laboratory Report Ordering Provider Test Date Status MIS CHIN 11/04/2023 14:50:06 Final Observation Date Value Abnormality Reference (Units ) Status WBC, Total 11/04/2023 14:50:06 6.72 4.00-10.80 (K/uL) Final RBC 11/04/2023 14:50:06 5.34 4.50-5.25 (M/uL) Final Hemoglobin 11/04/2023 14:50:06 17.1 Above high normal 14.0-16.8 (g/dL) Final HCT 11/04/2023 14:50:06 50.4 Above high normal 40.0-48.4 (%) Final MCV 11/04/2023 14:50:06 94.4 82.0-99.5 (fL) Final MCH 11/04/2023 14:50:06 32.0 27.0-34.0 (pg) Final MCHC 11/04/2023 14:50:06 33.9 32.0-36.0 (g/dL) Final RDW 11/04/2023 14:50:06 13.6 11.5-15.5 (%) Final Platelets 11/04/2023 14:50:06 178 140-400 (K/uL) Final MPV 11/04/2023 14:50:06 9.7 6.6-11.1 (fL) Final Nucleated erythrocytes/100 leukocytes [Ratio] in Blood by Automated count 11/04/2023 14:50:06 0 <=0 (/100 WBCs) Final Performing Location [facility] - [address] [place] [address]
--- OUTSIDE RECORDS SUMMARY | 2023-11-24 22:39 | External Medical Summary ---
Author Name Unknown Address Unknown Organization K01:[facility] - [address] [place] [address] Laboratory Report Ordering Provider Test Date Status MIS CHIN 11/04/2023 14:50:06 Final Observation Date Value Abnormality Reference (Units ) Status Ferritin 11/04/2023 14:50:06 572 Above high normal 30 -400 (ng/mL) Final Performing Location [facility] - [address] [place] [address]
--- OUTSIDE RECORDS SUMMARY | 2023-11-24 22:39 | External Medical Summary | Summary of Care ---
Author Name Unknown Organization [facility] Address [address] [facility] [place] [address] Phone [phone] Care Team Providers Care Electronic Systems Security Assessment Name Role Phone Milton Hartley MD Primary Care Provider + Reason for Visit * Reason Onset Date Comments Advice 11/11/2023 Encounter Details Date Type Department Care Team (Late st Contact Info) Description 11/11/2023 Telephone Cardiology, [facility] [address] [place] [address] Karan Cunningham PA-C [address] [place] [address] Advice Allergies Active Allergy Reactions Criticality Noted [...] MCG/0.3 mL, 12 YRS AND ABOVE, IM ([facility]) 10/11/2023 COVID-19, mRNA, LNP-s, PF, B [...] encounter Miscellaneous Notes * Telephone Encounter - Lorrie Mares OSA [...] Description 11/30/2023 10:20 AM EST Laboratory Laboratory [address] [place] [phone] [place] [address] 02/10/2024 1:00 PM EDT Office Visit Cardiology [address] [place] [address] Karan Cunningham PA-C [address] [facility] [facility] [place] [address] Health Maintenance Due Date Last Done Comments [...] filedocumented as of this encounter Care Teams Electronic Systems Security Assessment Relationship Specialty Start Date End Date Milton Hartley MD [address] [place] [address] PCP - General Internal Medicine 02/25/21 documented as of this encounter
--- OUTSIDE RECORDS SUMMARY | 2023-11-24 22:39 | External Medical Summary ---
Author Name Unknown Address Unknown Organization K01:[facility] - [address] [place] [address] Laboratory Report Ordering Provider Test Date Status MIS CHIN 11/04/2023 14:50:06 Final Observation Date Value Abnormality Reference (Units ) Status Magnesium 11/04/2023 14:50:06 2.3 1.5-2.6 (m g/dL) Final Performing Location [facility] - [address] [place] [address]
--- OUTSIDE RECORDS SUMMARY | 2023-11-24 22:39 | External Medical Summary ---
Author Name Unknown Address Unknown Organization K01:LAB[facility]ATORY [facility] - [address] [place] [address] Laboratory Report Ordering Provider Test Date Status MIS CHIN 11/04/2023 14:50:06 Final Observation Date Value Abnormality Reference (Units ) Status TSH 11/04/2023 14:50:06 6.66 Above high normal 0. 27-4.20 (uIU/mL) Final Performing Location [facility] - [address] [place] [address]
--- OUTSIDE RECORDS SUMMARY | 2023-11-24 22:39 | External Medical Summary | Summary of Care ---
Author Name Unknown Organization [facility] Address [address] [facility] [place] [address] Phone [phone] Care Team Providers Care Store Consultant Name Role Phone Milton Hartley MD Primary Care Provider + Reason for Visit * Reason Onset Date Comments Outpatient Testing 11/08/2023 Encounter Details Date Type Department Care Team (Late st Contact Info) Description 11/08/2023 Telephone Cardiology, [facility] [address] [place] [address] Karan Cunningham PA-C [address] [place] [address] Outpatient Testing Allergies Active Allergy Reactions Criticality Noted Date [...] MCG/0.3 mL, 12 YRS AND ABOVE, IM ([facility]) 10/11/2023 COVID-19, mRNA, LNP-s, PF, B [...] as of this encounter Miscellaneous Notes * Addendum Note - Cristopher Garcia RN - 11/11/2023 10:58 AM ESTAddended by: CRISTOPHER GARCIA on: 11/11/2023 10:58 AM Modules accepted: Orders * Telephone Encounter - Cristopher Garcia RN - 11/11/2023 10:57 AM EST EKG documented in this encounter Plan of Treatment Upcoming Encounters Date Type Department Care Team (Late st Contact Info) Description 11/11/2023 11:00 AM EST Cardiac Studies Cardiac Studies, [facility] [address] [facility] [place] [address] Arrived 11/30/2023 10:20 AM EST Laboratory Laboratory [address] [place] [phone] [address] [place] [address] 02/10/2024 1:00 PM EDT Office Visit Cardiology [address] [place] [address] Karan Cunningham PA-C [address] [facility] [place] [address] Scheduled Orders Name Type Priority Associated Diagnoses Orde r Schedule EKG COMPLETE (TRACING AND INTERP) EKG Routine Abnormal nuclear stress test RASMUSSEN (dyspnea on exertion) Atypical chest pain Ordered: 11/11/2023 Health Maintenance Due Date Last Done Comments [...] of this encounter Visit Diagnoses Diagnosis Abnormal nuclear stress test- Primary Other nonspecific abnormal cardiovascular system function study RASMUSSEN (dyspnea on exertion) Other dyspnea and respiratory abnormality Atypical chest pain Other chest pain documented in this encounter Care Teams Store Consultant Relationship Specialty Start Date End Date Milton Hartley MD [address] [place] [address] PCP - General Internal Medicine 02/25/21 documented as of this encounter
--- OUTSIDE RECORDS SUMMARY | 2023-11-24 22:39 | External Medical Summary | Summary of Care ---
Author Name Unknown Organization [facility] Address [address] [facility] [place] [address] Phone [phone] Care Team Providers Care Medical Billing And Coding Specialist Name Role Phone Milton Hartley MD Primary Care Provider + Reason for Visit * Reason Onset Date Comments Advice 11/11/2023 Encounter Details Date Type Department Care Team (Late st Contact Info) Description 11/11/2023 Telephone Cardiology, [facility] [address] [place] [address] Karan Cunningham PA-C [address] [place] [address] Advice Allergies Active Allergy Reactions Criticality Noted [...] MCG/0.3 mL, 12 YRS AND ABOVE, IM ([facility]) 10/11/2023 COVID-19, mRNA, LNP-s, PF, B [...] encounter Miscellaneous Notes * Telephone Encounter - Karan Cunningham PA-C [...] Description 11/30/2023 10:20 AM EST Laboratory Laboratory [address] [place] [phone] [place] [address] 02/10/2024 1:00 PM EDT Office Visit Cardiology [address] [place] [address] Karan Cunningham PA-C [address] [place] [address] Health Maintenance Due Date Last Done Comments [...] filedocumented as of this encounter Care Teams Medical Billing And Coding Specialist Relationship Specialty Start Date End Date Milton Hartley MD [address] [place] [address] PCP - General Internal Medicine 02/25/21 documented as of this encounter
--- OUTSIDE RECORDS SUMMARY | 2023-11-24 22:39 | External Medical Summary | Summary of Care ---
Author Name Unknown Organization [facility] Address [address] [facility] [place] [address] Phone [phone] Care Team Providers Care Slunk Skinner Name Role Phone Milton Hartley MD Primary Care Provider + Reason for Visit * Reason Onset Date Comments Test Results 11/03/2023 Encounter Details Date Type Department Care Team (Late st Contact Info) Description 11/03/2023 Telephone Cardiology, [facility] [address] [place] [address] Karan Cunningham PA-C [address] [place] [address] Test Results Allergies Active Allergy Reactions Criticality [...] MCG/0.3 mL, 12 YRS AND ABOVE, IM ([facility]) 10/11/2023 COVID-19, mRNA, LNP-s, PF, [...] to follow previous instructions given for his cath that was to be done on 09/08/2024 and was cancelled. He stated he understood. He will be in tomorrow for his EKG. 11/11/2023 at 1100 am. * Telephone Encounter - Sergio Umaña LPN - 11/03/2023 4:19 PM EST Sent patient a Sendah Direct message to make aware. ----- Message from Karan Cunningham PA-C sent at 11/03/2023 1:12 PM EST ----- ok documented in this encounter Plan of Treatment Upcoming Encounters Date Type Department Care Team (Late st Contact Info) Description 11/11/2023 11:00 AM EST Cardiac Studies Cardiac Studies, [facility] [address] [facility] [place] [address] 11/30/2023 10:20 AM EST Laboratory Laboratory [address] [place] [phone] [place] [address] 02/10/2024 1:00 PM EDT Office Visit Cardiology [address] [place] [address] Karan Cunningham PA-C [address] [place] [address] Health Maintenance Due Date Last Done Comments [...] filedocumented as of this encounter Care Teams Slunk Skinner Relationship Specialty Start Date End Date Milton Hartley MD [address] [place] [address] (work) PCP - General Internal Medicine 02/25/21 documented as of this encounter
--- OUTSIDE RECORDS SUMMARY | 2023-11-24 22:40 | External Medical Summary | Summary of Care ---
Author Name Unknown Organization [facility] Address [address] [facility] [place] [address] Phone [phone] Care Team Providers Care Packing Machine Inspector Name Role Phone Milton Hartley MD Primary Care Provider + Reason for Visit * Reason Onset Date Comments Advice 10/15/2023 Encounter Details Date Type Department Care Team (Late st Contact Info) Description 10/15/2023 Telephone Cardiology, [facility] [address] [place] [address] Karan Cunningham PA-C [address] [place] [address] Advice Allergies Active Allergy Reactions Criticality Noted Date Comments Ariel Inhibitors Cough 03/10/2022 Enalapril Cough 12/14/2022 Mod cough noted on scanned records from pcp Metformin Diarrhea 12/14/2022 Moderate diarrhea per scanned records from PCP Pioglitazone Hcl-Glimepiride 023 Severe SOB noted on scanned records from pcp documented as of this encounter (statuses as of 10/15/2023) Medications Medication Sig Dispensed Refills Start Date End Date Status Calcium 600+D 600-800 MG-UNIT Oral Tablet (Calcium Carb-Cholecalciferol ) Take 1 Tab by mouth daily. 0 Active Vitamin C 1000 MG Oral Tablet Take 1 Tablet by mouth in the morning. 0 Active Ocuvite Adult Formula Oral Capsule Take 1 Cap by mouth daily. 0 Active Potassium 99 MG Oral Tablet Take 1 Tablet by mouth in the morning. 0 Active Vitamin A 2400 MCG (8000 [...] Active Selenium 200 MCG Oral Tablet Take by mouth daily. 0 Active Vitamin D 25 MCG (1000 UT) Oral Tablet Take 1 Tablet by mouth in the morning. 0 Active Cetirizine HCl 10 MG Oral Tablet (ZyrTEC) Take 1 Tablet by mouth in the morning. 0 Active Metoprolol Succinate ER 100 MG Oral Tablet Extended Release 24 Hour (toPROL XL) Take 1 Tablet by mouth in the morning. 0 02/12/2021 Active Atorvastatin Calcium 40 MG Oral Tablet (Lipitor) Take 1 Tablet by mouth at bedtime. 0 02/11/2021 Active Levothyroxine Sodium 200 MCG Oral Tablet (Levoxyl) Take 1 Tablet by mouth in the morning. 0 11/27/2020 Active hydroCHLOROthiazide 25 MG Oral Tablet (Hydrodiuril) Take 0.5 Tablets by mouth in the morning. 0 11/25/2020 Active NovoLOG Mix 70/30 FlexPen (70-30) 100 UNIT/ML Subcutaneous Suspension Pen-injector 150-200 units twice daily per sliding scale 0 02/19/2021 Active Fluticasone-Salmeter ol 250-50 MCG/DOSE Inhalation Aerosol Powder Breath Activated Inhale 1 Puff by mouth in the morning and 1 Puff before bedtime. 0 Active Apixaban 5 MG Oral Tablet (Eliquis) Take 1 Tablet by mouth 2 times a day. 64 Tablet 5 09/11/2021 Active Losartan Potassium 25 MG Oral Tablet (Cozaar)Indications: HTN, goal below 140/90 take 1 tablet by mouth once daily 30 Tablet 11 09/29/2022 Active Levothyroxine Sodium 25 MCG Oral Tablet (Levoxyl) Take 1 Tablet by mouth in the morning. 0 08/10/2022 Active Atorvastatin Calcium 40 MG Oral Tablet (Lipitor) Take one tablet by mouth at bedtime 90 Tablet 1 05/25/2023 Active Metoprolol Succinate ER 25 MG Oral Tablet Extended Release 24 Hour (toPROL XL) Take one tablet by mouth once daily. 20 Tablet 2 10/27/2022 Active Additional Information Patient not taking.Reported on 08/05/2023 Levothyroxine Sodium 200 MCG Oral Tablet (Levoxyl) Take one tablet by mouth daily (at least 30 min prior to breakfast or other meds) 90 Tablet 2 05/25/2023 Active Levothyroxine Sodium 25 MCG Oral Tablet (Levoxyl) take 1 tablet by mouth daily (at least 30 min prior to breakfast or other meds) 90 Tablet 2 11/05/2022 Active Apixaban 5 MG Oral Tablet (Eliquis) [...] per day 180 Each 3 08/23/2023 Active BD Pen Needle Nikole U/F 32G X 4 MM (Insulin Pen Needle) use to inject insulin twice a day 200 Each 3 08/31/2023 Active Toprol XL 100 MG Oral Tablet Extended Release 24 Hour take 1 tablet by mouth daily 90 Tablet 3 09/03/2023 Active Losartan Potassium 25 MG Oral Tablet (Cozaar)Indications: Primary hypertension Take one tablet by mouth once daily 30 Tablet 3 09/23/2023 Active documented as of this encounter (statuses as of 10/15/2023) Active Problems Problem Noted Date Diagnosed Date [...] as of this encounter (statuses as of 10/15/2023) Immunizations Name Administration Dates Next Due COVID-19 mRNA, LNP-s, No Pre serve, 2-Dose Series (Moderna) 11/22/2020,10/25/2020 COVID-19, MRNA-LNP, 23-24, P F, 30 MCG/0.3 mL, 12 YRS AND ABOVE, IM ([facility]) 10/11/2023 COVID-19, mRNA, LNP-s, PF, B ooster, 100mcg/0.5mg (Moderna) 01/13/2022,08/05/2021 Covid-19, Mrna, Lnp-s, Pf, B ivalent, 30 Mcg, IM, 12 yrs and above ([facility] 07/14/2022 Seasonal Influenza, Trivalent, Adjuvanted, 65+ y rs 10/06/2021 TD - Tetanus/Diptheria (ADULT) 06/23/2022 Zoster Vaccine Recombinant ([facility]) 10/06/2021 documented as of this encounter Social History Tobacco Use Types Packs/Day Years Used Date Smoking Tobacco: Never Smokeless Tobacco: Never Alcohol Use Standard Drinks/Week Comments Yes 7 (1 standard drink = 0.6 oz pure alcohol) beer a night or every other night Sex and Gender Information Value Date Recorded Sex Assigned at Male 10/14/2022 1:31 PM EST Gender Identity Male 10/14/2022 1:31 PM EST Sexual Orientation Straight 10/14/2022 1: 31 PM EST Job Start Date Occupation Industry Not on file Not on file Not on file documented as of this encounter Miscellaneous Notes * Telephone Encounter - Ml Cheema RN - 10/15/2023 10:50 AM EST Called patient back via telephone. Advised of Karan's recommendation. Patient hesitant to go to ER upon recommendation. Asking if any available appointments in [place] upcoming with Karan. Upon review, available appointment for Wednesday10/19/23. Assisted in scheduling per patient request and stressed importance of following recommendation for ER evaluation as per Karan. Patient verbalizing understanding, prefers to keep appointment at this time next week and will seekER evaluation with any worsening/ongoing symptoms. SHAYLA Russo. * Telephone Encounter - Ml Cheema RN - 10/15/2023 10:31 AM EST Called, spoke with patient for extended period. Reports symptoms of jaw/ear/neck discomfort beginning through night last night. Denies chest pain/shortness of breath. Did take aspirin around 2AM which aided in symptoms. Reports having viral illness about 2 weeks ago (negative for Influenza, COVID, RSV). With viral illness noted occurrences of afib. Verified taking Eliquis as prescribed. Bp lower at times reporting 105-120's systolic. Typically takes losartan at night, did not take last night due to bp being 105- 117 systolic. Vitals this morning: BP 158/90 HR 65 (before meds). Reports taking losartan this AM along with metoprolol. Typically takes HCTZ around noon. Spoke with Karan Cunningham PA-C via telephone, discussed above information. Per Karan Cunningham PA-C: -Given history/risk factors and reports of symptoms, best for patient to seek ER evaluation at thistime. * Telephone Encounter - Haritha Valdovinos OSA - 10/15/2023 9:45 AM EST Person calling: Solo Relationship to patient: self Number to return call: [phone] Reason for call: Patient called requesting to speak to Karan Cunningham today. Patient states he has "pre heart attack conditions" and did not wish to release any further information. I attempted to reach the clinic but was unsuccessful. Patient made aware that he will be receiving a call back to discuss symptoms with a nurse and patient disconnected. Pharmacy: N/A Provider Name:Karan Cunningham documented in this encounter Plan of Treatment Upcoming Encounters Date Type Department Care Team (Late st Contact Info) Description 10/15/2023 1:30 PM EST Nurse Only Ancillary [address] [place] [address] [place], Nurse Annual [address] [place] [address] 10/19/2023 10:00 AM EST Office Visit Cardiology [address] [place] [address] Karan Cunningham PA-C [address] [place] [address] 02/10/2024 1:00 PM EDT Office Visit Cardiology [address] [place] [address] Karan Cunningham PA-C [address] [place] [address] Health Maintenance Due Date Last Done Comments HbA1c 1946 Pneumococcal Vaccine: 65+ Years (1 - PCV) 1946 Depression Screening 1952 Albumin/Creatinine Ratio 1958 Diabetic Foot Exam 1958 Hepatitis B (1 of 3 - Risk 3-dose series) 2000 Zoster Vaccines (2 of 2) 12/01/2021 10/06/2021 TSH 02/25/2022 02/25/2021 DTaP,Tdap,and Td Vaccines (1 - Tdap) 06/24/2022 06/23/2022 *SPIROMETRY ONCE FOR ASTHMA-ADULT 10/17/2022 Influenza Vaccine (FLU shot) (#1) 2023 10/06/2021 Diabetic Eye Exam 11/19/2023 11/19/2022 GFR 02/10/2024 02/09/2023, 02/25/2021 COVID-19 Vaccine Completed 10/11/2023, , 01/13/2022, Additional history exists GARDASIL-HPV IMMUNIZATION SERIES Aged Out No longer eligible based on patient's age to complete this topic MENINGOCOCCAL (MENACTRA/MENVEO) Aged Out No longer eligible based on patient's age to complete this topic documented as of this encounter Medical Devices Not on filedocumented as of this encounter Care Teams Packing Machine Inspector Relationship Specialty Start Date End Date Milton Hartley MD [address] [place] [address] PCP - General Internal Medicine 02/25/21 documented as of this encounter
--- OUTSIDE RECORDS SUMMARY | 2023-11-24 22:40 | External Medical Summary | Summary of Care ---
Author Name Unknown Organization [facility] Address [address] [place] [address] Phone [phone] Care Team Providers Care Jewelry Drilling Machine Operator Name Role Phone Milton Hartley MD Primary Care Provider + Reason for Visit * Reason Onset Date Comments Follow Up 10/26/2023 Letter received from patient and scanned in. Encounter Details Date Type Department Care Team (Late st Contact Info) Description 10/26/2023 Telephone [facility] Medicine [address] [phone] Cristal Tellez, DELORES Follow Up (Letter received from patient an... Allergies Active Allergy Reactions Criticality Noted Date Comments Ariel Inhibitors Cough 03/10/2022 Enalapril Cough 12/14/2022 Mod cough noted on scanned records from pcp Metformin Diarrhea 12/14/2022 Moderate diarrhea per scanned records from PCP Pioglitazone Hcl-Glimepiride 023 Severe SOB noted on scanned records from pcp documented as of this encounter (statuses as of 11/01/2023) Medications Medication Sig Dispensed Refills Start Date [...] Wednesday only. 14 Tablet 5 10/20/2023 Active documented as of this encounter (statuses as of 11/01/2023) Active Problems Problem Noted Date Diagnosed Date [...] as of this encounter (statuses as of 11/01/2023) Immunizations Name Administration Dates Next Due COVID-19 mRNA, LNP-s, No Pre serve, 2-Dose Series (Moderna) 11/22/2020,10/25/2020 COVID-19, MRNA-LNP, 23-24, P F, 30 MCG/0.3 mL, 12 YRS AND ABOVE, IM (Planbus-Comirnaty) 10/11/2023 COVID-19, mRNA, LNP-s, PF, B ooster, [...] encounter Miscellaneous Notes * Telephone Encounter - Cristal Tellez RN - 10/29/2023 9:10 AM EST Sent myG message * Telephone Encounter - Cristal Tellez RN - 10/26/2023 2:16 PM EST I did receive a letter from the patient addressed to me. In the letter it states patient upon Karan Cunningham's and I recommendations patient did go to the ER to get an EKG and blood test for heart attack Markers. Please see letter and labs that have been scanned in TSH was 10.869 and low potassium. He has increased his thyroid med and daily selenium Stress test done also per Karan Cunningham recommendations. Labs will also be scanned in . Patient wanted me to respond via his personal email, I tried to callthe patient to make him aware I received his letter and labs. I also stated I will send him a MYG message. documented in this encounter Plan of Treatment Upcoming Encounters Date Type Department Care Team (Late st Contact Info) Description 11/30/2023 10:20 AM EST Laboratory Laboratory [address] [place] [phone] [facility] [address] [place] [address] 02/10/2024 1:00 PM EDT Office Visit Cardiology [address] [place] [address] Karan Cunningham PA-C [address] [place] [address] Health Maintenance Due Date Last Done Comments [...] filedocumented as of this encounter Care Teams Jewelry Drilling Machine Operator Relationship Specialty Start Date End Date Milton Hartley MD [address] [place] [address] PCP - General Internal Medicine 02/25/21 documented as of this encounter
--- OUTSIDE RECORDS SUMMARY | 2023-11-24 22:40 | External Medical Summary | Summary of Care ---
Author Name Unknown Organization [facility] Address [address] [facility] [place] [address] Phone [phone] Care Team Providers Care Credit Director Name Role Phone iMlton Hartley MD Primary Care Provider + Reason for Visit * Reason Onset Date Comments Appointment 10/19/2023 Encounter Details Date Type Department Care Team (Late st Contact Info) Description 10/19/2023 Telephone Cardiology, [facility] [address] [place] [address] Karan Cunningham PA-C [address] [place] [address] Appointment Allergies Active Allergy Reactions Criticality Noted Date Comments Ariel Inhibitors Cough 03/10/2022 Enalapril Cough 12/14/2022 Mod cough noted on scanned records from pcp Metformin Diarrhea 12/14/2022 Moderate diarrhea per scanned records from PCP Pioglitazone Hcl-Glimepiride 023 Severe SOB noted on scanned records from pcp documented as of this encounter (statuses as of 10/19/2023) Medications Medication Sig Dispensed Refills Start Date [...] other meds) 90 Tablet 2 11/05/2022 Active Additional Information Patient taking differently: 50 mcg Oral [id number], Reported on 10/19/2023 Apixaban 5 MG Oral Tablet (Eliquis) Take [...] as of this encounter (statuses as of 10/19/2023) Active Problems Problem Noted Date Diagnosed Date [...] as of this encounter (statuses as of 10/19/2023) Immunizations Name Administration Dates Next Due COVID-19 mRNA, LNP-s, No Pre serve, 2-Dose Series (Moderna) 11/22/2020,10/25/2020 COVID-19, MRNA-LNP, 23-24, P F, 30 MCG/0.3 mL, 12 YRS AND ABOVE, IM (Modria-Comirnat) 10/11/2023 COVID-19, mRNA, LNP-s, PF, B ooster, [...] Telephone Encounter - Lorrie Mares OSA - 10/19/2023 10:56 AM EST Nuc stress test needed per Karan Cunningham. documented in this encounter Plan of Treatment Upcoming Encounters Date Type Department Care Team (Late st Contact Info) Description 11/30/2023 10:20 AM EST Laboratory Laboratory [address] [place] [phone] [place] [address] 02/10/2024 1:00 PM EDT Office Visit Cardiology [address] [place] [address] Karan Cunningham PA-C [address] [place] [address] Health Maintenance Due Date Last Done Comments [...] Exam 11/19/2023 11/19/2022 GFR 02/10/2024 02/09/2023, 02/25/2021 Depression Screening 10/15/2024 [...] filedocumented as of this encounter Care Teams Credit Director Relationship Specialty Start Date End Date Milton Hartley MD [address] [place] [address] PCP - General Internal Medicine 02/25/21 documented as of this encounter
--- OUTSIDE RECORDS SUMMARY | 2023-11-24 22:40 | External Medical Summary | Summary of Care ---
Author Name Unknown Organization [facility] Address [address] [facility] [place] [address] Phone [phone] Care Team Providers Care Beating Machine Operator Name Role Phone Milton Hartley MD Primary Care Provider + Reason for Visit * Reason Onset Date Comments Test Results 10/25/2023 Encounter Details Date Type Department Care Team (Late st Contact Info) Description 10/25/2023 Telephone Cardiology, [facility] [address] [place] [address] Karan Cunningham PA-C [address] [place] [address] Test Results Allergies Active Allergy Reactions Criticality Noted Date Comments Ariel Inhibitors Cough 03/10/2022 Enalapril Cough 12/14/2022 Mod cough noted on scanned records from pcp Metformin Diarrhea 12/14/2022 Moderate diarrhea per scanned records from PCP Pioglitazone Hcl-Glimepiride 023 Severe SOB noted on scanned records from pcp documented as of this encounter (statuses as of 10/25/2023) Medications Medication Sig Dispensed Refills Start Date [...] Information Patient taking differently: 50 mcg Oral [id number], Reported on 10/19/2023 Apixaban 5 MG Oral [...] as of this encounter (statuses as of 10/25/2023) Active Problems Problem Noted Date Diagnosed Date [...] as of this encounter (statuses as of 10/25/2023) Immunizations Name Administration Dates Next Due COVID-19 mRNA, LNP-s, No Pre serve, 2-Dose Series (Moderna) 11/22/2020,10/25/2020 COVID-19, MRNA-LNP, 23-24, P F, 30 MCG/0.3 mL, 12 YRS AND ABOVE, IM ([facility]) 10/11/2023 COVID-19, mRNA, LNP-s, PF, B [...] Telephone Encounter - Lorrie Mares OSA - 10/25/2023 10:11 AM EST Spoke with Pt, appt scheduled for 10/28 at 3:30 with Karan in [facility]. * Telephone Encounter - Sergio Umaña LPN - 10/25/2023 9:56 AM EST Sent patient a LIBCAST message to make aware. Scheduling please assist. ----- Message from Karan Cunningham PA-C sent at 10/25/2023 8:28 AM EST ----- October 22, 2023 [place] Interpretation Summary (as per Dr. Caro): There is a small sized reversible apical lateral perfusion defect consistent with mild ischemia in the distal LAD or circumflexcoronary territory. Gated SPECT imaging reveals normal myocardial thickening and wall motion. The left ventricular ejection fraction was calculated to be 58%. Small abnormality on stress testing. Recommend an in office visit, in [place] if possible, to discuss results and management - referral for cardiac catheterization versus ongoing medical management. documented in this encounter Plan of Treatment Upcoming Encounters Date Type Department Care Team (Late st Contact Info) Description 10/28/2023 3:30 PM EST Office Visit Cardiology [address] [place] [phone] Karan Cunningham PA-C [address] [place] [address] 11/30/2023 10:20 AM EST Laboratory Laboratory [address] [place] [phone] [address] [place] [address] 02/10/2024 1:00 PM EDT Office Visit Cardiology [address] [place] [address] Karan Cunningham PA-C [address] [place] [address] Health Maintenance Due Date Last Done Comments [...] filedocumented as of this encounter Care Teams Beating Machine Operator Relationship Specialty Start Date End Date Smeal, Milton Roberto, MD [address] [place] [address] PCP - General Internal Medicine 02/25/21 documented as of this encounter
--- OUTSIDE RECORDS SUMMARY | 2023-11-24 22:40 | External Medical Summary | Summary of Care ---
Author Name Unknown Organization [facility] Address [address] [place] [address] Phone [phone] Care Team Providers Care Cake Froster Name Role Phone Milton Hartley MD Primary Care Provider + Reason for Visit * Reason Onset Date Comments Follow Up 10/26/2023 Letter received from patient and scanned in. Encounter Details Date Type Department Care Team (Late st Contact Info) Description 10/26/2023 Telephone [facility] Medicine [address] [phone] Cristal Tellez, DELORES Follow Up [...] as of this encounter (statuses as of 10/29/2023) Medications Medication Sig Dispensed Refills Start Date [...] as of this encounter (statuses as of 10/29/2023) Active Problems Problem Noted Date Diagnosed Date [...] as of this encounter (statuses as of 10/29/2023) Immunizations Name Administration Dates Next Due COVID-19 mRNA, LNP-s, No Pre serve, 2-Dose Series (Moderna) 11/22/2020,10/25/2020 COVID-19, MRNA-LNP, 23-24, P F, 30 MCG/0.3 mL, 12 YRS AND ABOVE, IM ([employer]-Comirnaty) 10/11/2023 COVID-19, mRNA, LNP-s, PF, B ooster, [...] Description 11/30/2023 10:20 AM EST Laboratory Laboratory [address] [place] [phone] [facility] [address] [place] [address] 02/10/2024 1:00 PM EDT Office Visit Cardiology [address] [place] [address] Karan Cunningham PA-C [address] [place] [address] Health Maintenance Due Date Last Done Comments [...] filedocumented as of this encounter Care Teams Cake Froster Relationship Specialty Start Date End Date Milton Hartley MD [address] [place] [address] PCP - General Internal Medicine 02/25/21 documented as of this encounter
--- OUTSIDE RECORDS SUMMARY | 2023-11-24 22:40 | External Medical Summary | Summary of Care ---
Author Name Unknown Organization [facility] Address [address] [facility] [place] [address] Phone [phone] Care Team Providers Care Fish Roe Processor Name Role Phone Milton Hartley MD Primary Care Provider + Encounter Details Date Type Department Care Team (Late st Contact Info) Description 10/22/2023 Orders Only Unspecified Department Karan Cunningham PA-C [address] [place] [address] Allergies Active Allergy Reactions Criticality Noted Date Comments Ariel Inhibitors Cough 03/10/2022 Enalapril Cough 12/14/2022 Mod cough noted on scanned records from pcp Metformin Diarrhea 12/14/2022 Moderate diarrhea per scanned records from PCP Pioglitazone Hcl-Glimepiride 023 Severe SOB noted on scanned records from pcp documented as of this encounter (statuses as of 10/22/2023) Medications Medication Sig Dispensed Refills Start Date [...] Information Patient taking differently: 50 mcg Oral [id number], Reported on 10/19/2023 Apixaban 5 MG Oral [...] Wednesday only. 14 Tablet 5 10/20/2023 Active Hospital, Clinic, or Other Facility Administered Medication Ordered Dose Route Frequency Start Date End Date Status Regadenoson (Lexiscan) inj 0.4 mg 0.4 mg IV PUSH ONCE 10/22/2023 10/22/2023 Active documented as of this encounter (statuses as of 10/22/2023) Active Problems Problem Noted Date Diagnosed Date [...] as of this encounter (statuses as of 10/22/2023) Immunizations Name Administration Dates Next Due COVID-19 mRNA, LNP-s, No Pre serve, 2-Dose Series (Moderna) 11/22/2020,10/25/2020 COVID-19, MRNA-LNP, 23-24, P F, 30 MCG/0.3 mL, 12 YRS AND ABOVE, IM ([employer]) 10/11/2023 COVID-19, mRNA, LNP-s, PF, [...] Description 11/30/2023 10:20 AM EST Laboratory Laboratory [address] [place] [phone] [address] [place] [address] 02/10/2024 1:00 PM EDT Office Visit Cardiology [address] [place] [address] Karan Cunningham PA-C [address] [place] [address] Health Maintenance Due Date Last Done Comments [...] Procedure Name Priority Date/Time Associated Diagnosis Comments NM MYOCARDIAL PERFUSION IMAGING SPECT MULTIPLE STUDIES WITH PHARMACOLOGIC INTERVENTION Routine 10/22/2023 8:22 AM EST documented in this encounter Results * NM MYOCARDIAL PERFUSION IMAGING SPECT MULTIPLE STUDIES WITH PHARMACOLOGIC INTERVENTION (10/22/2023 8:22 AM EST) 10/22/2023 8:22 AM EST Karan Cunningham PA-C RAD NUCLEAR MED Performing Organization Address City/State/[facility] Co [place] Phone Number [facility] documented in this encounter Care Teams Fish Roe Processor Relationship Specialty Start Date End Date Milton Hartley MD [address] [place] [address] PCP - General Internal Medicine 02/25/21 documented as of this encounter
--- OUTSIDE RECORDS SUMMARY | 2023-11-24 22:40 | External Medical Summary | Summary of Care ---
Author Name Unknown Organization [facility] Address [address] [facility] [place] [address] Phone [phone] Care Team Providers Care Denitrator Operator Name Role Phone Milton Hartley MD Primary Care Provider + Reason for Visit * Reason Comments Follow Up To discuss stress te st. Irregular HR once in awhile. Took an aspirin last night which helped with this not being present as much today. Encounter Details Date Type Department Care Team (Late st Contact Info) Description 10/28/2023 3:30 PM EST Office Visit Cardiology [address] [place] [phone] Karan Cunningham PA-C [address] [place] [address] Abnormal nuclear stress test*; RASMUSSEN (dyspnea on exertion); Atypical chest pain; Tachy-agustín syndrome (HCC); Palpitations; Paroxysmal atrial fibrillation (HCC); Primary hypertension; Dyslipidemia, goal LDL below 70; Hypokalemia; Hypothyroidism due to acquired atrophy of thyroid Allergies Active Allergy Reactions Criticality Noted Date [...] by mouth in the morning. 0 Active Levothyroxine Sodium 25 MCG Oral Tablet (Levoxyl) take 1 tablet by mouth daily (at least 30 min prior to breakfast or other meds) 90 Tablet 2 11/05/2022 4 Discontinue d(Refill) documented as of this [...] MCG/0.3 mL, 12 YRS AND ABOVE, IM ([facility]) 10/11/2023 COVID-19, mRNA, LNP-s, PF, [...] on file documented as of this encounter Last Filed Vital Signs Vital Sign Reading Time Taken Comments Blood Pressure 156/74 10/28/2023 3:26 PM EST Pulse 84 10/28/2023 3:26 PM EST Temperature - - Respiratory Rate 16 10/28/2023 3:26 PM EST Oxygen Saturation - - Inhaled Oxygen Concentration - - Weight 93.4 kg (205 lb 14.4 oz) 10/28/2023 3:26 PM EST Height - - Body Mass Index 32.74 10/15/2023 2:25 PM EST documented in this encounter Progress Notes * Karan Cunningham PA-C - 10/28/2023 3:40 PM EST History of Present Illness: Jessica Dunn is a 83-year-old male here today for cardiology evaluation. Patient evaluated at the [facility] ER on October 16, 2023. EKG without acute change. High sensitivity troponin negative. Blood pressure was mildly elevated on presentation of 154/94. Chest x-ray was without acute process. Laboratory work notable for borderline potassium, mildly elevated ALT, and an abnormal TSH (10.859) with patient noting subsequent self titration of levothyroxine from 225 mcg/day to250 mcg/day on Wednesday, October 17, 2023. Patient evaluated per request on 10/19/2023 with atypical chest pain, atypical jaw pain and exertional dyspnea (100 yards). Due to symptoms as well as multiple cardiac risk factors, patient was referred for Lexiscan nuclear stress testing which transpired on October 22, 2023 and revealed a small size reversible apical lateral perfusion defect consistent with mild ischemia in the distal LAD or circumflex coronary artery. Patient returns today, accompanied by , to discuss findings and to discuss management options. No recent episodes of atrial fibrillation. No activity related chest pain. Stable exertional dyspnea. No resting dyspnea. No significant fluid retention. No dizziness or lightheadedness. No near syncope or syncope. Stools are dark and stable, on oral iron replacement therapy. No hematuria. Patient in the process of switching primary care providers, recently fired from Dr. Hartley's practice. Past Medical and Surgical History: Paroxysmal atrial fibrillation [id number] (age, HTN, DM) Idioventricular rhythm on zio patch 09/2022 Early signs of Tachy-Agustín Syndrome. Evaluated by Electrophysiology on December 11, 2022. Antiarrhythmic therapy reserved for if/when he has more PAF. Permanent pacemaker implantation not felt to be indicated at this juncture. Medications continued without change. EP question ongoing need for aspirin which patient takes on his own accord for primary prevention. Hypertension Dyslipidemia Type 2 diabetes mellitus with peripheral neuropathy Polycythemia Hypothyroidism Asthma BPH GERD Appendectomy Ventral hernia repair Tonsillectomy Adenoidectomy Cataract extraction Family History: Father of coronary heart disease. 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 Review of patient's allergies indicates: Allergen Reactions Ariel Inhibitors Cough Enalapril Cough Mod cough noted on scanned records from pcp Metformin Diarrhea Moderate diarrhea per scanned records from PCP Pioglitazone Hcl-Glimepiride Severe SOB noted on scanned records from pcp Current Outpatient Medications Medication Sig Dispense Refill Calcium 600+D 600-800 MG-UNIT Oral Tablet (Calcium Carb-Cholecalciferol) Take 1 Tab by mouth daily. Vitamin C 1000 MG Oral Tablet Take 1 Tablet by mouth in the morning. Ocuvite Adult Formula Oral Capsule Take 1 Cap by mouth daily. Vitamin A 2400 MCG (8000 UT) Oral Tablet Take 1 Tab by mouth daily. Iron 325 (65 Fe) MG Oral Tablet Take 1 Tablet by mouth in the morning. Magnesium 250 MG Oral Tablet Take 1 Tablet by mouth in the morning. Vitamin B12 1000 MCG Oral Tablet Extended Release Take 1 Tab by mouth daily. Selenium 200 MCG Oral Tablet Take 2 Tablets by mouth in the morning. Vitamin D 25 MCG (1000 UT) Oral Tablet Take 1 Tablet by mouth in the morning. Cetirizine HCl 10 MG Oral Tablet (ZyrTEC) Take 1 Tablet by mouth in the morning. Atorvastatin Calcium 40 MG Oral Tablet (Lipitor) Take one tablet by mouth at bedtime 90 Tablet 1 Levothyroxine Sodium 200 MCG Oral Tablet (Levoxyl) Take one tablet by mouth daily (at least 30 min prior to breakfast or other meds) 90 Tablet 2 Apixaban 5 MG Oral Tablet (Eliquis) Take one tablet by mouth two times a day 6 Tablet 0 Losartan Potassium 25 MG Oral Tablet (Cozaar) Take one tablet by mouth once daily 30 Tablet 3 hydroCHLOROthiazide 25 MG Oral Tablet (Hydrodiuril) Take one-half tablet by mouth daily 45 Tablet 2 Toprol XL 100 MG Oral Tablet Extended Release 24 Hour take one tablet by mouth daily 90 Tablet 3 NovoLOG Mix 70/30 FlexPen (70-30) 100 UNIT/ML Subcutaneous Suspension Pen- injector (NovoLOG MIX 70/30) injects 150 units under the skin twice a day 270 mL 3 Fluticasone-Salmeterol 250-50 MCG/ACT Inhalation Aerosol Powder Breath Activated (Emeka Navarro) 1 puff inhaled orally 2 times per day (Patient taking differently: Inhale by mouth. Patient taking oncedaily) 180 Each 3 [facility] Melatonin Gummies 1 MG Oral Tablet Chewable (Melatonin) Take 3 mg by mouth at bedtime. Potassium Chloride Josefina ER 10 MEQ Oral Tablet Extended Release Take 1 Tablet by mouth once a day onWednesday, Wednesday, and Wednesday only. 14 Tablet 5 Levothyroxine Sodium 50 MCG Oral Tablet (Levoxyl) Take 1 tablet by mouth daily in the morning alongwith the 200 mcg tablet. 90 Tablet 3 Aspirin 81 MG Oral Capsule Take 1 Tablet by mouth in the morning. BD Pen Needle Nikole U/F 32G X 4 MM (Insulin Pen Needle) use to inject insulin twice a day 200 Each 3 No current facility-administered medications for this visit. OBJECTIVE/PHYSICAL EXAMINATION: BP 156/74 | Pulse 84 | Resp 16 | Wt 93.4 kg (205 lb 14.4 oz) | BMI 32.74 kg/m | BSA 2.09 m General: Alert. NAD. Comfortable and cooperative. Hard of hearing. Skin: No rash. Eyes: PER. Conjunctiva pink, sclera clear. HENT: Normocephalic. Atraumatic. Neck: No carotid bruits. No JVD. No HJR. Heart: RRR, 80 bpm. No murmur. No rub. No gallop. PMI is nondisplaced. Lungs: Diminished. Decreased. No abnormal breath sounds auscultated. Abdomen: +BS. Soft. Nontender. No masses. No organomegaly. Extremities: No clubbing, cyanosis, or edema. Pulses: radial=2/4, posterior tibial=2/4. Limited neurological examination: No focal deficit. Data: September 2022 Zio monitor: Patient had a min HR of 52 bpm, max HR of 168 bpm, and avg HR of 71 bpm. Predominant underlying rhythm was Sinus Rhythm. 3 Supraventricular Tachycardia runs occurred, the run with the fastest interval lasting 6 beats with a max rate of 158 bpm, the longest lasting 9 beats with an avg rate of 131 bpm. Atrial Fibrillation/Flutter occurred (2% burden), ranging from 69-168 bpm (avg of 131 bpm), the longest lasting 4 hours 15 mins with an avg rate of 133 bpm. Idioventricular Rhythm was present. Atrial Fibrillation/Flutter was detected within +/- 45 seconds of symptomatic patient event(s). Isolated SVEs were rare (<1.0%), SVE Couplets were rare (<1.0%), and SVE Triplets were rare (<1.0%). Isolated VEs were rare (<1.0%, 457), VE Triplets were rare (<1.0%,4), and no VE Couplets were Present. January 21, 2023 TTE Interpretation Summary (as per Dr. Caro): The LV wall thickness is normal. The left ventricular wall motion is normal. The qualitative LV ejection fraction is 55-59% (normal). The left ventricular diastolic function is mildly abnormal (grade I). Mild aortic valve sclerosis is present. Aortic stenosis is absent. EKG on October 16, 2023: Normal sinus rhythm at 72 bpm with sinus arrhythmia. QTc 453 ms. Chest x-ray at [facility] on October 16, 2023 revealed mild cardiomegaly and bibasilar linear densities consistent with subsegmental atelectasis, without acute process. Laboratory work performed at the [facility] ER on October 16, 2023: Normal white blood cell count, 7.51. Normal H&H, 16.9 and 49.1. Normal platelet count, 181 K. sodium 137. Potassium 3.6. BUN 25. Creatinine 1.20. Calcium 8.7. Magnesium 2.0. AST 39. ALT mildly elevated at 56. Alk-phos normal at 89. High sensitivity troponin negative at 8.6. TSH elevated at 10.869. Free T4 was normal at 0.97. October 22, 2023 Lexiscan Interpretation Summary (as per Dr. Caro): There is a small sized reversible apical lateral perfusion defect consistent with mild ischemia in the distal LAD or circumflexcoronary territory. Gated SPECT imaging reveals normal myocardial thickening and wall motion. The left ventricular ejection fraction was calculated to be 58%. ASSESSMENT AND RECOMMENDATIONS/PLAN: Atypical chest pain, exertional dyspnea,and multiple cardiac risk factors leading to abnormal Lexiscan nuclear stress testing which revealed a small size reversible apical lateral perfusion defect consistent with mild ischemia in the distal LAD or LCX Paroxysmal atrial fibrillation. Early signs of Tachy-Agustín Syndrome. [id number] [id number] 4 (age, HTN, DM).Chronically prescribed Eliquis anticoagulation. Zio monitoring pending Recent laboratory work with borderline hypokalemia. On HCTZ. OTC potassium discontinued with patient started on potassium chloride 10 mEq on MW last week. Recheck potassium level with the follow-up TSH. Hypothyroidism. Levothyroxine recently increased from 225 mcg/day to 250 mcg/day. Recheck TSH in 6 weeks. Hypertension Dyslipidemia. LDL 10 circa 8 months ago. Continue atorvastatin 40 mg/day Type 2 diabetes mellitus with neuropathy. Polycythemia Suspected underlying obstructive sleep apnea. BPH with lower urinary tract symptoms. GERD Chart history of asthma Options of management discussed with patient and spouse who was present for the entire consultation. We specifically discussed medical management versus referral for cardiac catheterization and discussed the risks as well as the benefits of each pathway. The patient requests referral for cardiac cat heterization and will let us know his decision regarding location ([facility] versus [facility]) after further discussion with his . The risks (bleeding, infection, radiation exposure, renal dysfunction, atheroembolism, allergic reactions including anaphylaxis, perforation of the heart or great vessels, arrhythmias, conduction disturbances, local vascular complications, cerebrovascular accident, MS, or ) as well as the benefits and outcomes were explained. Patient instructions were reviewed. Handout provided by nurse. Cardiology follow-up post catheterization or as needed. ERwith emergencies. Karan Cunningham PA-C Department of Cardiology I spent a total of 30-39 minutes (exact time 37 mins) on the date of service in preparation, delivery, and documentation of the care provided to Jessica Dunn excluding any time spent in the performance of separately billed services. This chart was completed in part utilizing [employer] Speech Voice Recognition Software. Grammatical errors, random word insertions, prounoun errors, and incomplete sent ences are an occasional consequence of this system due to software limitations, ambient noise, and hardware issues. Any formal questions or concerns about the content, text, or information contained within the body of this dictation should be directly addressed to the provider for clarification. documented in this encounter Nursing Notes * Sergio Umaña LPN - 10/28/2023 3:25 PM EST Patient identified by full name and date of Chief Complaint Patient presents with Follow Up To discuss stress test. Irregular HR once in awhile. Took an aspirin last night which helped with this not being present as much today. Examination Room: 3 Name: Jessica Dunn Date of : (1940). Reason for Visit: Follow up Interim Hospitalization(s): Denies Problems/Concerns: See chief complaint Chest Pain/SOB: See chief complaint [facility] Discussed: Yes [facility] is a way you can talk to your provider online through e-mail. Would you like to sign up? I can activate it for you? ALREADY ACTIVE Patient was instructed to not get up on the exam table until directed and assisted by their provider; patient is to remain seated in the chair/ wheelchair/ exam table for fall prevention and safety reasons. Patient is aware to have assistance to step down off exam table with personnel. Patient voiced full comprehension of instructions. documented in this encounter Miscellaneous Notes * Addendum Note - Sergio Umaña LPN - 11/01/2023 11:57 AM ESTAddended by: SERGIO UMAAÑ on: 11/01/2023 11:57 AM Modules accepted: Orders documented in this encounter Plan of Treatment Upcoming Encounters Date Type Department Care Team (Late st Contact Info) Description 11/30/2023 10:20 AM EST Laboratory Laboratory [address] [place] [phone] [facility] Lab [address] [place] [address] 02/10/2024 1:00 PM EDT Office Visit Cardiology [address] [place] [address] Karan Cunningham PA-C [address] [place] [phone] Scheduled Orders Name Type Priority Associated Diagnoses Orde r Schedule CBC WITH WBC DIFFERENTIAL Lab Routine Abnormal nuclear stress test RASMUSSEN (dyspnea on exertion) Atypical chest pain Tachy-agustín syndrome (HCC) Palpitations Paroxysmal atrial fibrillation (HCC) Primary hypertension Dyslipidemia, goal LDL below 70 Hypokalemia Hypothyroidism due to acquired atrophy of thyroid Expected: 11/02/2023 (Approximate), Expires: 11/01/2024 PT INR Lab Routine Abnormal nuclear stress test RASMUSSEN (dyspnea on exertion) Atypical chest pain Tachy-agustín syndrome (HCC) Palpitations Paroxysmal atrial fibrillation (HCC) Primary hypertension Dyslipidemia, goal LDL below 70 Hypokalemia Hypothyroidism due to acquired atrophy of thyroid Expected: 11/02/2023 (Approximate), Expires: 11/01/2024 APTT Lab Routine Abnormal nuclear stress test RASMUSSEN (dyspnea on exertion) Atypical chest pain Tachy-agustín syndrome (HCC) Palpitations Paroxysmal atrial fibrillation (HCC) Primary hypertension Dyslipidemia, goal LDL below 70 Hypokalemia Hypothyroidism due to acquired atrophy of thyroid Expected: 11/02/2023 (Approximate), Expires: 11/01/2024 XR CHEST 2 VIEWS Medical Imaging Routine Abnormal nuclear stress test RASMUSSEN (dyspnea on exertion) Atypical chest pain Expected: 11/02/2023 (Approximate), Expires: 11/29/2024 Health Maintenance Due Date Last Done Comments [...] abnormality Atypical chest pain Other chest pain Tachy-agustín syndrome (HCC) Sinoatrial node dysfunction Palpitations Paroxysmal atrial fibrillation (HCC) Atrial fibrillation Primary hypertension Unspecified essential hypertension Dyslipidemia, goal LDL below 70 Other and unspecified hyperlipidemia Hypokalemia Hypopotassemia Hypothyroidism due to acquired atrophy of thyroid documented in this encounter Care Teams Denitrator Operator Relationship Specialty Start Date End Date Milton Hartley MD [address] [place] [id number] PCP - General Internal Medicine 02/25/21 documented as of this encounter"
--- OUTSIDE RECORDS SUMMARY | 2023-11-24 22:40 | External Medical Summary | Summary of Care ---
Author Name Unknown Organization [facility] Address [address] [facility] [place] [address] Phone [phone] Care Team Providers Care Assistant County Engineer Name Role Phone Milton Hartley MD Primary Care Provider + Reason for Visit * Reason Comments Follow Up To discuss stress te st. Irregular HR once in awhile. Took an aspirin last night which helped with this not being present as much today. Encounter Details Date Type Department Care Team (Late st Contact Info) Description 10/28/2023 3:30 PM EST Office Visit Cardiology [address] [place] [phone] Karan Cunningham PA-C [address] [place] [address] Abnormal nuclear stress test*; RASMUSSEN (dyspnea on [...] as of this encounter (statuses as of 10/28/2023) Medications Medication Sig Dispensed Refills Start Date [...] as of this encounter (statuses as of 10/28/2023) Active Problems Problem Noted Date Diagnosed Date [...] as of this encounter (statuses as of 10/28/2023) Immunizations Name Administration Dates Next Due COVID-19 mRNA, LNP-s, No Pre serve, 2-Dose Series (Moderna) 11/22/2020,10/25/2020 COVID-19, MRNA-LNP, 23-24, P F, 30 MCG/0.3 mL, 12 YRS AND ABOVE, IM ([facility]) 10/11/2023 COVID-19, mRNA, LNP-s, PF, B ooster, [...] for cardiology evaluation. Patient evaluated at the [facility] ER on October 16, 2023. EKG without [...] Medical and Surgical History: Paroxysmal atrial fibrillation [id number] 4 (age, HTN, DM) Idioventricular rhythm on [...] arrhythmia. QTc 453 ms. Chest x-ray at [facility] on October 16, 2023 revealed mild cardiomegaly and bibasilar linear densities consistent with subsegmental atelectasis, without acute process. Laboratory work performed at the [facility] ER on October 16, 2023: Normal white [...] atrial fibrillation. Early signs of Tachy-Agustín Syndrome. [id number] VASc 4 (age, HTN, DM).Chronically prescribed Eliquis [...] let us know his decision regarding location ([facility] versus [facility]) after further discussion with his . The risks (bleeding, infection, radiation exposure, renal dysfunction, atheroembolism, allergic reactions including anaphylaxis, perforation of the heart or great vessels, arrhythmias, conduction disturbances, local vascular complications, cerebrovascular accident, [place], or ) as well as the benefits [...] This chart was completed in part utilizing [employer] Speech Voice Recognition Software. Grammatical errors, random [...] [facility] Discussed: Yes [facility] [employer] is a way you can talk to [...] comprehension of instructions. documented in this encounter Plan of Treatment Upcoming Encounters Date Type Department Care Team (Late st Contact Info) Description 11/30/2023 10:20 AM EST Laboratory Laboratory [address] [place] [phone] [address] [place] [address] 02/10/2024 1:00 PM EDT Office Visit Cardiology [address] [place] [address] Karan Cunningham PA-C [address] [place] [address] Health Maintenance Due Date Last Done Comments [...] thyroid documented in this encounter Care Teams Assistant County Engineer Relationship Specialty Start Date End Date Milton Hartley MD [address] [facility] [place] [address] PCP - General Internal Medicine 02/25/21 documented as of this encounter"
--- OUTSIDE RECORDS SUMMARY | 2023-11-24 22:40 | External Medical Summary | Summary of Care ---
Author Name Unknown Organization [facility] Address [address] [address] Phone [phone] Care Team Providers Care Director Of Slot Operations Name Role Phone Milton Hartley MD Primary Care Provider + Reason for Visit * Reason Comments Adult Annual Wellness Visit, Subsequent Visit Encounter Details Date Type Department Care Team (Late st Contact Info) Description 10/15/2023 1:30 PM EST Nurse Only Ancillary [address] [place] [id number] [facility], Nurse [address] [place] [phone] Adult Annual Wellness Visit, Subsequent Visit Allergies Active Allergy Reactions Criticality Noted Date [...] Calcium 600+D 600-800 MG-UNIT Oral Tablet (Calcium Carb-Cholecalcife rol) Take 1 Tab by mouth daily. 0 [...] 1 Tablet by mouth at bedtime. 0 1 Active NovoLOG Mix 70/30 FlexPen (70-30) 100 UNIT/ML Subcutaneous Suspension Pen-injector 150-200 units twice daily per sliding scale 0 1 Active Fluticasone-Salme terol 250-50 MCG/DOSE Inhalation Aerosol Powder Breath Activated Inhale 1 Puff by mouth in the morning and 1 Puff before bedtime. 0 Active Atorvastatin Calcium 40 MG Oral Tablet (Lipitor) Take one tablet by mouth at bedtime 90 Tablet 1 3 Active Additional Information Patient not taking.Reported on 10/15/2023 Levothyroxine Sodium 200 MCG Oral Tablet (Levoxyl) Take one tablet by mouth daily (at least 30 min prior to breakfast or other meds) 90 Tablet 2 3 Active Levothyroxine Sodium 25 MCG Oral Tablet (Levoxyl) take 1 tablet by mouth daily (at least 30 min prior to breakfast or other meds) 90 Tablet 2 3 Active Apixaban 5 MG Oral Tablet (Eliquis) Take one tablet by mouth two times a day 6 Tablet 0 3 Active Losartan Potassium 25 MG Oral Tablet (Cozaar) Take one tablet by mouth once daily 30 Tablet 3 3 Active hydroCHLOROthiazi de 25 MG Oral Tablet (Hydrodiuril) Take one-half tablet by mouth daily 45 Tablet 2 3 Active Toprol XL 100 MG Oral Tablet Extended Release 24 Hour take one tablet by mouth daily 90 Tablet 3 3 Active NovoLOG Mix 70/30 FlexPen (70-30) 100 UNIT/ML Subcutaneous Suspension Pen-injector (NovoLOG MIX 70/30) injects 150 units under the skin twice a day 270 mL 3 3 Active Fluticasone-Salme terol 250-50 MCG/ACT Inhalation Aerosol Powder Breath Activated (Wixela Inhub) 1 puff inhaled orally 2 times per day 180 Each 3 3 Active Additional Information Patient taking differently:Inhalation,Patient taking once daily, Reported on 10/15/2023 BD Pen Needle Nikole U/F 32G X 4 MM (Insulin Pen Needle) use to inject insulin twice a day 200 Each 3 3 Active Metoprolol Succinate ER 100 MG Oral Tablet Extended Release 24 Hour (toPROL XL) Take 1 Tablet by mouth in the morning. 0 1 10/15/19 24 Discontinued(Med ication List Clean Up) Levothyroxine Sodium 200 MCG Oral Tablet (Levoxyl) Take 1 Tablet by mouth in the morning. 0 1 10/15/19 24 Discontinued(Med ication List Clean Up) hydroCHLOROthiazi de 25 MG Oral Tablet (Hydrodiuril) Take 0.5 Tablets by mouth in the morning. 0 1 10/15/19 24 Discontinued(Med ication List Clean Up) Apixaban 5 MG Oral Tablet (Eliquis) Take 1 Tablet by mouth 2 times a day. 64 Tablet 5 1 10/15/19 24 Discontinued(Med ication List Clean Up) Losartan Potassium 25 MG Oral Tablet (Cozaar)Indicatio ns:HTN, goal below 140/90 take 1 tablet by mouth once daily 30 Tablet 11 3 10/15/19 24 Discontinued(Med ication List Clean Up) Levothyroxine Sodium 25 MCG Oral Tablet (Levoxyl) Take 1 Tablet by mouth in the morning. 0 2 10/15/19 24 Discontinued(Med ication List Clean Up) Metoprolol Succinate ER 25 MG Oral Tablet Extended Release 24 Hour (toPROL XL) Take one tablet by mouth once daily. 20 Tablet 2 3 10/15/19 24 Discontinued(Med ication List Clean Up) Toprol XL 100 MG Oral Tablet Extended Release 24 Hour take 1 tablet by mouth daily 90 Tablet 3 3 10/15/19 24 Discontinued Losartan Potassium 25 MG Oral Tablet (Cozaar)Indicatio ns:Primary hypertension Take one tablet by mouth once daily 30 Tablet 3 3 10/15/19 24 Discontinued([facility] List Clean Up) documented as of this encounter (statuses as [...] MCG/0.3 mL, 12 YRS AND ABOVE, IM [facility] 10/11/2023 COVID-19, mRNA, LNP-s, PF, B ooster, 100mcg/0.5mg (Moderna) 01/13/2022,08/05/2021 Covid-19, Mrna, Lnp-s, Pf, B ivalent, 30 Mcg, IM, 12 yrs and above ([facility]) 07/14/2022 Seasonal Influenza, Trivalent, Adjuvanted, 65+ y [...] Sign Reading Time Taken Comments Blood Pressure 128/70 10/15/2023 2:25 PM EST Pulse 64 10/15/2023 2:25 PM EST Temperature 36.1 C (96.9 F) 10/15/2023 2:25 PM ES T Respiratory Rate - - Oxygen Saturation 94% 10/15/2023 2:25 PM EST Inhaled Oxygen Concentration - - Weight 93.8 kg (206 lb 12.8 oz) 10/15/2023 2:25 PM EST Height 168.9 cm (5' 6.5") 10/15/2023 2:25 PM EST Body Mass Index 32.88 10/15/2023 2:25 PM EST documented in this encounter Patient Instructions * Patient Instructions* Cristal Tellez, DELORES - 10/15/2023 2:24 PM EST Diabetes: Keeping Feet Healthy Inspect your feet every day for signs of a problem. Diabetes can damage nerves in your feet and cause neuropathy. This condition makes it hard for you to feel injuries or sore spots. Diabetes can also change blood flow, making it harder for small problems, like a blister, to heal properly. In fact, minor injuries can quickly become serious infections that send you to the hospital. Practice self-care to protect your feet and keep them healthy. Take Special Care Inspect your feet daily for problems such as redness, blisters, cracks, dry skin, or numbness. Use a mirror to see the bottoms of your feet. Or, ask for help. Manage your diabetes. Monitor and control your blood sugar. Take all your medications as prescribed. Avoid walking barefoot, even indoors. Wash your feet with warm water and mild soap. Dry well, especially between toes. Dont treat corns or calluses yourself. Talk to your doctor or mortgage loan originator (a doctor who specializes in foot care) if you need assistance trimming your toenails. Use moisturizing cream or lotion if you have dry skin, but dont use it between toes. Dont use heating pads on your feet. If you have neuropathy, you could get a burn and not feel it. Stop smoking. Smoking restricts blood flow and can make it harder for wounds to heal. Have Regular Checkups Foot problems can develop quickly. So be sure to follow your healthcare teams schedule for regular checkups. During office visits, take off your shoes and socks as soon as you get in the exam room. Ask your healthcare provider to examine your feet for problems. This will make it easier to find and treat small skin irritations before they get worse. Regular checkups can also help keep track of the blood flow and feeling in your feet. If you have neuropathy, you may need to have checkups more often. Wear Proper Footwear Wearing proper footwear is very important. If areas of your feet have been damaged by too much pressure, your healthcare provider may recommend changing your footwear. In some cases, avoiding high heels or tight work boots may be all thats needed. Or, your healthcare provider may recommend special shoes or custom inserts. These help protect your feet and keep existing irritations from getting worse. If you need special footwear, ask your healthcare provider if you qualify for [employer] diabetic shoe program. Make Sure Shoes and Socks Fit Any pair of shoes--new or old--should feel comfortable as soon as you put them on. There shouldnt be any rubbing when you walk. Wear the right shoe for any activity. For instance, a running shoe is designed to keep your feet injury-free while jogging. Buy shoes at the end of the day, when your feet are larger. Make sure they provide support without feeling too loose. Make sure your socks fit, t oo. Wear soft, seamless, well-padded socks for activity. Cotton or microfiber socks are best to help to absorb sweat. To protect your feet, avoid shoes that are open-toed or open-heeled. If you have questions about what kinds of shoes and socks are best, talk to your healthcare team. Get Regular Exercise Regular exercise improves blood flow in your feet. It also increases foot strength and flexibility.Gentle exercises, like walking or riding a stationary bicycle, are best. You can also do special foot exercises. Just be sure to talk with your healthcare provider before starting any exercise program. Also mention if any exercise causes pain, redness, or other signs of foot problems. Note: If you have any kind of break in the skin of your foot or ankle, keep the area clean. Then call your doctor--especially if the area doesnt appear to be healing. [id number] [employer], [address] [place] [address], [place] [address]. All rights reserved. This information is not intended as a substitute for professional medical care. Always follow your healthcare professional's instructions. Hi Mr. Dunn, As your primary care physician, I know that regular visits with my patients who have several chronic conditions can go a long way in helping you stay healthy. Many times, the clinic team and I are in touch with you and/or other care team members between office visits to adjust medications, discuss any changes in your health, and review our care plan to make sure it is still meeting your needs. I am dedicated to helping you take a more active role in your overall care. It is important that there are resources available to you, so I created a personalized plan of care with a Health Calendar for you, which is included on the next page of this letter. Below is a list that summarizes your electronic health record: Health Maintenance Due: Health Maintenance Due Topic Date Due HbA1c Never done Pneumococcal Vaccine: 65+ Years (1 - PCV) Never done Albumin/Creatinine Ratio Never done Hepatitis B (1 of 3 - Risk 3-dose series) Never done Zoster Vaccines (2 of 2) 12/01/2021 TSH 02/25/2022 DTaP,Tdap,and Td Vaccines (1 - Tdap) 06/24/2022 *SPIROMETRY ONCE FOR ASTHMA-ADULT Never done Influenza Vaccine (FLU shot) (1) 05/28/2023 Current Medication List: (as of Visit date not found (in office), Visit date not found (telemedicine) ) Current Outpatient Medications Medication Sig Dispense Refill Calcium 600+D 600-800 MG-UNIT Oral Tablet (Calcium Carb-Cholecalciferol) Take 1 Tab by mouth daily. Vitamin C 1000 MG Oral Tablet Take 1 Tablet by mouth in the morning. Ocuvite Adult Formula Oral Capsule Take 1 Cap by mouth daily. Potassium 99 MG Oral Tablet Take 1 Tablet by mouth in the morning. Vitamin A 2400 MCG (8000 UT) Oral Tablet Take 1 Tab by mouth daily. Iron 325 (65 Fe) MG Oral Tablet Take 1 Tablet by mouth in the morning. Magnesium 250 MG Oral Tablet Take 1 Tablet by mouth in the morning. Vitamin B12 1000 MCG Oral Tablet Extended Release Take 1 Tab by mouth daily. Selenium 200 MCG Oral Tablet Take by mouth daily. Vitamin D 25 MCG (1000 UT) Oral Tablet Take 1 Tablet by mouth in the morning. Cetirizine HCl 10 MG Oral Tablet (ZyrTEC) Take 1 Tablet by mouth in the morning. Levothyroxine Sodium 200 MCG Oral Tablet (Levoxyl) [...] 100 UNIT/ML Subcutaneous Suspension Pen- injector (NovoLOG MIX70/30) injects 150 units under the skin twice a day 270 mL 3 BD Pen Needle Nikole U/F 32G X 4 MM (Insulin Pen Needle) use to inject insulin twice a day 200 Each 3 Atorvastatin Calcium 40 MG Oral Tablet (Lipitor) Take 1 Tablet by mouth at bedtime. (Patient not taking: Reported on 10/15/2023) NovoLOG Mix 70/30 FlexPen (70-30) 100 UNIT/ML Subcutaneous Suspension Pen- injector 150-200 units twice daily per sliding scale Fluticasone-Salmeterol 250-50 MCG/DOSE Inhalation Aerosol Powder Breath Activated Inhale 1 Puffby mouth in the morning and 1 Puff before bedtime. Atorvastatin Calcium 40 MG Oral Tablet (Lipitor) Take one tablet by mouth at bedtime (Patient not taking: Reported on 10/15/2023) 90 Tablet 1 Levothyroxine Sodium 25 MCG Oral Tablet (Levoxyl) take 1 tablet by mouth daily (at least 30 minprior to breakfast or other meds) 90 Tablet 2 Fluticasone-Salmeterol 250-50 MCG/ACT Inhalation Aerosol Powder Breath Activated (Wixela Inhub)1 puff inhaled orally 2 times per day (Patient taking differently: Inhale by mouth. Patient taking once daily) 180 Each 3 No current facility-administered medications for this visit. Current List of Allergies: (as of Visit date not found (in office), Visit date not found (telemedicine) ) Review of patient's allergies indicates: Allergen Reactions Ariel Inhibitors Cough Enalapril Cough Mod cough noted on scanned records from pcp Metformin Diarrhea Moderate diarrhea per scanned records from PCP Pioglitazone Hcl-Glimepiride Severe SOB noted on scanned records from pcp Most Recent Lab Results: Results for orders placed or performed in visit on 02/19/23 CHEMISTRY-OUTSIDE Result Value Ref Range Not all results display below - see scan for full detail CREATININE-OUTSIDE LAB 1.13 0.720 - 1.180 MG/DL EGFR-OUTSIDE LAB POTASSIUM-OUTSIDE LAB 4.1 3.600 - 5.000 MMOL/L GLUCOSE-OUTSIDE LAB 131.0 (A) 74.00 - 106.0 MG/DL HOURS FASTING TRIGLYCERIDES-OUTSIDE LAB 294 (A) 0.000 - 150.0 CHOLESTEROL-OUTSIDE LAB 98 0.000 - 200.0 MG/DL HDL-OUTSIDE LAB 29 (A) 40.00 - 60.00 MG/DL CHOL/HDL RATIO-OUTSIDE LAB LDL (CALCULATED)-OUTSIDE LAB 10 0.000 - 130.0 MG/DL LDL (DIRECT MEASURE)-OUTSIDE LAB HEMOGLOBIN, [id number] LAB PHOSPHORUS-OUTSIDE LAB PTH-OUTSIDE LAB MICROALBUMIN RATIO-OUTSIDE LAB PROTEIN, UA-OUTSIDE LAB HEMOGLOBIN-OUTSIDE LAB 16.66 12.55 - 16.99 Sincerely, Milton Hartley MD 10/15/2023 [facility] Calendar (as of Visit date not found (in office), Visit date not found (telemedicine) ) Care needs Care needs Last completed Due next A1C blood sugar test --- Never done Pneumonia vaccine (1 - PCV) --- Never done Urine albumin/creatinine test --- Never done Hepatitis B vaccine (1 of 3 - Risk 3-dose series) --- Never done Zoster (Shingles) Vaccine (2 of 2) 10/06/2021 12/01/2021 Yearly thyroid level check 02/25/2021 02/25/2022 Diphtheria, tetanus & pertussis vaccines (1 - Tdap) 06/23/2022 06/24/2022 Asthma air flow test --- Never done Flu vaccine (recommended) (1) 10/06/2021 05/28/2023 Diabetic Eye Exam 11/19/2022 11/19/2023 Kidney Function Test 02/09/2023 02/10/2024 Diabetic Foot Exam 10/15/2023 10/15/2024 As you look over the recommended services, be sure to check with your insurance company to determine what's covered. [employer] is a great tool that helps you review your medical record online, including test results, doctor notes and your health summary. You can also schedule appointments with me and other members of your care team, request prescription refills and ask for advice related to your medical conditions at [email or web address]. documented in this encounter Progress Notes * Cristal Tellez RN - 10/15/2023 2:23 PM EST Adult Annual Wellness Visit: Jessica Dunn is a 83 year old male who presents for an Adult Annual Wellness Visit. Patient states he spoke to cardiology this morning and I also verified symptoms patient was experiencing last night. Per telephone encounter "spoke with patient for extended period. Reports symptoms [...] patient to seek ER evaluation at thistime. " I also spoke to patient at length and counseled him to go to the ER, Patient refused multiple times, discuss concerns about DC and stroke and patient states he understands but insisted that he "looked on the internet last night and he is fine". He states if symptoms occur again or any chest pain , sob, lightheaded dizziness or worsening concerns he will call 911. Patient states he wants some testing and labs while he was here, I counseled him they would do thatat the ER. Patient does have an appointment with Karan Cunningham for Wednesday next week and patient states he is going to wait until then. BP 128/70 | Pulse 64 | Temp 36.1 C (96.9 F) | Ht 1.689 m (5' 6.5") | Wt 93.8 kg (206 lb 12.8 oz) | SpO2 94% | BMI 32.88 kg/m | BSA 2.1 m Pulse was currently regular, denies chest pain, sob, or jaw pain. Also had long discussion re his PCP, counseled patient he will need to follow up with Dr. Rubin office for his annual wellness visit , but if he does decide to switch pcp, I would be happy to do hisannual wellness visit. I also counseled patient his insurance will only cover one annual wellness visit . I did not schedule an appointment for next year. Patient states he is very unhappy with most providers and doesn't feel we have his best interest. Icounseled patient he needs to find a provider that he trust, he said he trust Karan Cunningham , I said he is recommending the ER. Patient still declined. Depression Screening: Did the patient complete the screening questionnaire for Depression? Yes Is the patient's total score for Depression 15 or greater? No, no further intervention needed, unless requested by patient. Did the patient answer positively to the suicide question? Yes, consult with physician prior to patient leaving the office. In general, compared to other people your age, what would you say that your health is? Good DM Foot Exam completed today. Provider aware. Cristal Tellez RN Socks and Shoes Removed for Annual Diabetic Foot Screening RIGHT FOOT: No Reddened, Cracking, Or Open Areas Noted. RIGHT Dorsalis Pedis Pulse: Palpable RIGHT Posterior Tibial Pulse: Palpable RIGHT Monofilament:Patient reports difficulty feeling monofilament at Great toe- plantar surface, Third toe-plantar surface, Ball of Foot-base of great toe, Ball of Foot-base of 3rd toe, and Ball of Foot-base of little toe LEFT FOOT: No Reddened, Cracking or Open Areas Noted. LEFT Dorsalis Pedis Pulse: Palpable LEFT Posterior Tibial Pulse: Palpable LEFT Monofilament:Patient reports difficulty feeling monofilament at Third toe- plantar surface, Ball of Foot-base of great toe, and Ball of Foot-base of 3rd toe Do you need diabetic shoes: No I offered a podiatry referral and patient declined, he states he did see someone in [place] and he will never go back there again. AD8 Dementia Screening Interview Person answering questions: patient Remember, "Yes, a change" indicates that there has been a change in the last several years caused by cognitive (thinking and memory) problems 1. Problems with judgement (eg: problems making decisions, bad financial decisions, problems with thinking). No (0) 2. Less interest in hobbies/activities. No (0) 3. Repeats the same things over and over (questions, stories, or statements). No (0) 4. Trouble learning how to use a tool, appliance, or gadget (eg: VCR, computer, microwave, remote control). No (0) 5. Forgets correct month or year. No (0) 6. Trouble handling complicated financial affairs (eg: balancing checkbook, income taxes, paying bills). No (0) 7. Trouble remembering appointments. No (0) 8. Daily problems with thinking and/or memory. No (0) TOTAL AD8: 0 - AD8 Dementia Screening Score The final score is a sum of the number items marked "Yes, A Change". 0 - 1: Normal cognition; 2 or greater: Cognitive impairments is likely to be present - further testing required Ht Readings from Last 1 Encounters: 10/15/23 1.689 m (5' 6.5") Wt Readings from Last 1 Encounters: 10/15/23 93.8 kg (206 lb 12.8 oz) Body Mass Index: BMI Greater than 30 Body mass index is 32.88 kg/m. 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 No Social History Tobacco Use Smoking status: Never Smokeless tobacco: Never Substance Use Topics Alcohol use: Yes Alcohol/week: 7.0 standard drinks of alcohol Types: 7 12 oz of beer per week Comment: beer a night or every other night Vaping/E-Cigarette Use Vaping/E-Cigarette Use Never User Vaping/E-Cigarette Substances Vaping/E-Cigarette Devices Tobacco/Alcohol screening completed today? Yes Hospital Care: Admissions (within the last year): Not Applicable ER within 30 days: No Does the patient have an Advance Directives/Living Will? No. Does the patient want information? No.Patient declined informationpt is working on that Last Physical Exam: Last physical exam: 07/2023 Does patient see primary provider regularly? Yes Does patient see other providers? Yes, Specialist Patient Care Team updated? Yes Review of patient's allergies indicates: Allergen Reactions Ariel Inhibitors Cough Enalapril Cough Mod cough noted on scanned records from pcp Metformin Diarrhea Moderate diarrhea per scanned records from PCP Pioglitazone Hcl-Glimepiride Severe SOB noted on scanned records from pcp Immunization History Administered Date(s) Administered COVID-19 mRNA, LNP-s, No Preserve, 2-Dose Series (Moderna) 10/25/2020, 11/22/2020 COVID-19, MRNA-LNP, 23-24, PF, 30 MCG/0.3 mL, 12 YRS AND ABOVE, IM ([facility]) 10/11/2023 COVID-19, mRNA, LNP-s, PF, Booster, 100mcg/0.5mg (Moderna) 08/05/2021, 01/13/2022 Covid-19, Mrna, Lnp-s, Pf, Bivalent, 30 Mcg, IM, 12 yrs and above (Pfizer) 07/14/2022 Seasonal Influenza, Trivalent, Adjuvanted, 65+ yrs 10/06/2021 TD - Tetanus/Diptheria (ADULT) 06/23/2022 Zoster Vaccine Recombinant (Shingrix) 10/06/2021 Current Outpatient Medications Medication Sig Dispense Refill Calcium 600+D 600-800 MG-UNIT Oral Tablet (Calcium Carb-Cholecalciferol) Take 1 Tab by mouth daily. Vitamin C 1000 MG Oral Tablet Take 1 Tablet by mouth in the morning. Ocuvite Adult Formula Oral Capsule Take 1 Cap by mouth daily. Potassium 99 MG Oral Tablet Take 1 Tablet by mouth in the morning. Vitamin A 2400 MCG (8000 UT) Oral Tablet Take 1 Tab by mouth daily. Iron 325 (65 Fe) MG Oral Tablet Take 1 Tablet by mouth in the morning. Magnesium 250 MG Oral Tablet Take 1 Tablet by mouth in the morning. Vitamin B12 1000 MCG Oral Tablet Extended Release Take 1 Tab by mouth daily. Selenium 200 MCG Oral Tablet Take by mouth daily. Vitamin D 25 MCG (1000 UT) Oral Tablet Take 1 Tablet by mouth in the morning. Cetirizine HCl 10 MG Oral Tablet (ZyrTEC) Take 1 Tablet by mouth in the morning. Levothyroxine Sodium 200 MCG Oral Tablet (Levoxyl) [...] skin twice a day 270 mL 3 BD Pen Needle Nikole U/F 32G X 4 MM (Insulin Pen Needle) use to inject insulin twice a day 200 Each 3 Atorvastatin Calcium 40 MG Oral Tablet (Lipitor) Take 1 Tablet by mouth at bedtime. (Patient not taking: Reported on 10/15/2023) NovoLOG Mix 70/30 FlexPen (70-30) 100 UNIT/ML Subcutaneous Suspension Pen- injector 150-200 units twice daily per sliding scale Fluticasone-Salmeterol 250-50 MCG/DOSE Inhalation Aerosol Powder Breath Activated Inhale 1 Puff by mouth in the morning and 1 Puff before bedtime. Atorvastatin Calcium 40 MG Oral Tablet (Lipitor) Take one tablet by mouth at bedtime (Patient not taking: Reported on 10/15/2023) 90 Tablet 1 Levothyroxine Sodium 25 MCG Oral Tablet (Levoxyl) take 1 tablet by mouth daily (at least 30 min prior to breakfast or other meds) 90 Tablet 2 Fluticasone-Salmeterol 250-50 MCG/ACT Inhalation Aerosol Powder Breath Activated (Wixela Inhub) 1 puff inhaled orally 2 times per day (Patient taking differently: Inhale by mouth. Patient taking oncedaily) 180 Each 3 No current facility-administered medications for this visit. 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 Yes Patient takes medications as prescribed? Yes Patient manages own medications: No Patient uses a pill box? Yes, refill(s) completed by self Dental Exam: >5yrs he was having problems with his teeth before that its been "50yrs" Encouraged to establish with a dentist. Eye Screening: Yes: Every year Are you having trouble with hearing? Yes Do you use an assistive device to help your hearing? Yes Exercise Screening: does not exercise regularly Nutrition Assessment: Eats a poorly balanced diet Pain Screening: Are you having any pain? No Sleep Screening Tool 'STOP': Do you snore? Yes Do you feel fatigued during the day? Yes Do you wake up feeling like you haven't slept? No Have you been told you stop breathing at night? No Do you gasp for air or choke while sleeping? No Have you been told you have Sleep Apnea? No Do you have high blood pressure or are on medication(s) to control high blood pressure? Yes SCORE: If you check YES to two or more questions, make a referral for Obstructive Sleep Apnea Patient states his project production engineer, Karan Cunningham highly recommend patient have a sleep study to evaluate for apnea, patient does not believe he has apnea Patient and Caregiver Support System: Patient lives with a spouse Means of Transportation: Drives. Not a concern. Patient lives in One Story - with basement stairs: 2 railings Community Resources: Not Applicable, I did give the patient Area on [employer] phone #, patient states son helps pay for the heating costs, and does not live with them. I counseled him he may be eligible for some assistance. Functional Status and ADL Skills: Has patient ever had an amputation? No Functional Assessment: 90- Able to carry on normal activity, minor symptoms of disease Ambulation: Patient ambulates without assistive device. Independent Dressing: Gets clothes and dresses without any assistance: Independent Able to move freely in chair or bed including turning over: Independent Repositioning (bed or chair): Not applicable Transfers: Independent Toileting: Goes to bathroom, uses toilet, arranges clothes and returns without any assistance: Independent Toileting: continent of bladder and continent of bowel Feeding: Self Bathing: Self; Requires none assistance with ADLs. Instrumental ADL's: Shopping: Minimal Assistance Housekeeping: Minimal Assistance Handling Finances: Minimal Assistance DME Vendor Name: Not Applicable Fall Risk Assessment: Can the patient demonstrate that he can stand from a sitting position? Yes Has the patient had a fall within the last 6 months? No Does the patient have a problem with his gait or balance? No Does the patient take 4 or more prescription medicines? No Does the patient use sedatives or narcotics? No Fall Risk Factors Present: Uses more than 4 medications Visually impaired Older than age 70 Rpl-Vq-tak-Go Test: Time began at 1330. Patient stood from sitting position and walked approximately 10 feet, returned and sat down. Total time for izl-sm-rrr-go test was 10 seconds. Ycg-Az-bff-Go Test completed? Yes Gender Specific Preventative Plan: Health Maintenance Topic Date Due HbA1c Never done Pneumococcal Vaccine: 65+ Years (1 - PCV) Never done Albumin/Creatinine Ratio Never done Hepatitis B (1 of 3 - Risk 3-dose series) Never done Zoster Vaccines (2 of 2) 12/01/2021 TSH 02/25/2022 DTaP,Tdap,and Td Vaccines (1 - Tdap) 06/24/2022 *SPIROMETRY ONCE FOR ASTHMA-ADULT Never done Influenza Vaccine (FLU shot) (1) 05/28/2023 Diabetic Eye Exam 11/19/2023 GFR 02/10/2024 Diabetic Foot Exam 10/15/2024 Depression Screening 10/15/2024 COVID-19 Vaccine Completed MENINGOCOCCAL (MENACTRA/MENVEO) Aged Out GARDASIL-HPV IMMUNIZATION SERIES Aged Out Follow Up/ Referrals/Handouts: Depression screening - completed Functional assessment - patient still works with [employer] 3-8 hrs a day. Falls Risk screening - discussed Exercise screening - encouraged patient to add routine exercise, possible walking or he does have astationary bike a couple days a week. Nutrition assessment -. Discussed, patient insist he knows what to do to make his sugars better, itsounds that he does not eat on a regular basis, patient does eat eggs most days. Patient states hiseating habits could be better Pain screening - none, declines any chest discomfort or pain Incontinence screening - no concerns. Patient has been verbally educated on the need or importance of Cholesterol, Dexa Scan, Diabetic Eye Exam, Diabetic Foot Exam, GFR, Hemoglobin A1c, and Immunizations: covid,flu, and shingrix Patient insist that the covid may have started his problems with Afib months ago, he declined his flu shot, and he said he is going to look into getting the shingrix completed. In [facility] I do have thatpatient got one vaccine on 10/06/21, but patient states he did not get any shingles vaccine. 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 - pt to continue present medications. Dyslipidemia - Med reconciliation completed and compliance discussed. - pt to continue present medications. Per [facility] last lipids were on 02/16 Triglycerides 294 LDL 10 GERD (gastroesophageal reflux disease) - Med reconciliation completed and compliance discussed. - pt to continue present medications. HTN (hypertension) - Med reconciliation completed and compliance discussed. - pt to continue present medications. BP Readings from Last 4 Encounters: 10/15/23 128/70 08/05/23 130/74 01/28/23 118/66 12/11/22 124/62 Hypothyroidism - Med reconciliation completed and compliance discussed. - pt to continue present medications. TSH Results: Lab Results Component Value Date/Time TSH - BOYER 5.16 (H) 02/25/2021 10:[address] Hartley did re adjust his meds and patient states he follow up with labs. Paroxysmal A-fib (HCC) - Med reconciliation completed and compliance discussed. - pt to continue present medications. -patient states he has notice more concerns with a certain manufacture. Patient does better on Toprol XL and worse on the Metoprolol Succinate ER Type II diabetes mellitus with HbA1C goal to be determined (HCC) - Med reconciliation completed and compliance discussed. -I feel patient is non compliant with BS, patient states he knows when his BS are ashlie or low. I did counseled patient if he transfers pcp, we do have MTM which would be recommend to help get BSunder control Last A1C I could fine in [facility] was 09/17 was 7.7, patient thought his last A1c done was 7.2 Patient appears comfortable , during annual wellness visit , again denies any chest pain , SOB. Still counseled him we would recommend going to the ER. He again agrees to call 911 if any chest pain or SOB or jaw pain. I will also fax my annual wellness visit note to Milton Hartley MD at [phone] Follow Up: Return in 1 year (on 10/15/2024) for 12 month Subsequent Adult Wellness Visit. | For: 12 month Subsequent Adult Wellness Visit | Check-out note: 12 month Subsequent Adult Wellness Visit Would patient like to schedule next AWV visit? Yes Cristal Tellez, RN documented in this encounter Plan of Treatment Upcoming Encounters Date Type Department Care Team (Late st Contact Info) Description 10/19/2023 10:00 AM EST Office Visit Cardiology [address] [place] [address] Karan Cunningham PA-C [address] [place] [address] 02/10/2024 1:00 PM EDT Office Visit Cardiology [address] [place] [address] Karan Cunningham PA-C [address] [place] [address] Health Maintenance Due Date Last Done Comments [...] as of this encounter Visit Diagnoses Diagnosis Routine general medical examination at a health care facility- Primary 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) Type II or unspecified type diabetes mellitus with neurological manifestations, not stated as uncontrolled Asthma in adult without complication, unspecified asthma severity, unspecified whether persistent Dyslipidemia Other and unspecified hyperlipidemia GERD (gastroesophageal reflux disease) Esophageal reflux HTN (hypertension) Unspecified essential hypertension Hypothyroidism Unspecified hypothyroidism Paroxysmal A-fib (HCC) Atrial fibrillation Type II diabetes mellitus with HbA1C goal to be determined (HCC) Type II or unspecified type diabetes mellitus without mention of complication, not stated as uncontrolled documented in this encounter Care Teams Director Of Slot Operations Relationship Specialty Start Date End Date Milton Hartley MD [address] [facility] [place] [address] PCP - General Internal Medicine 02/25/21 documented as of this encounter
--- OUTSIDE RECORDS SUMMARY | 2023-11-24 22:40 | External Medical Summary | Summary of Care ---
Author Name Unknown Organization [facility] [address] [facility] [address] Phone [phone] Care Team Providers Care Binder Stripper Hand Name Role Phone Milton Hartley MD Primary Care Provider + Encounter Details Date Type Department Care Team (Late st Contact Info) Description 10/11/2023 2:15 PM EST Immunization Ancillary [address] [place] [address] [facility] Covid19 Vaccine [address] [place] [address] Arrived Allergies Active Allergy Reactions Criticality Noted Date Comments Ariel Inhibitors Cough 03/10/2022 Enalapril Cough 12/14/2022 Mod cough noted on scanned records from pcp Metformin Diarrhea 12/14/2022 Moderate diarrhea per scanned records from PCP Pioglitazone Hcl-Glimepiride 023 Severe SOB noted on scanned records from pcp documented as of this encounter (statuses as of 10/11/2023) Medications Medication Sig Dispensed Refills Start Date [...] as of this encounter (statuses as of 10/11/2023) Active Problems Problem Noted Date Diagnosed Date [...] as of this encounter (statuses as of 10/11/2023) Immunizations Name Administration Dates Next Due COVID-19 mRNA, LNP-s, No Pre serve, 2-Dose Series (Moderna) 11/22/2020,10/25/2020 COVID-19, MRNA-LNP, 23-24, P F, 30 MCG/0.3 mL, 12 YRS AND ABOVE, IM ([employer]Comirnaty) 10/11/2023 COVID-19, mRNA, LNP-s, PF, B ooster, [...] 10/15/2023 1:30 PM EST Nurse Only Ancillary [address] [place] [address] [place], Nurse Annual [address] [place] [address] 02/10/2024 1:00 PM EDT Office Visit Cardiology [address] [place] [address] Karan Cunningham PA-C [address] [place] [address] Health Maintenance Due Date Last Done Comments [...] filedocumented as of this encounter Care Teams Binder Stripper Hand Relationship Specialty Start Date End Date Milton Hartley MD [address] [place] [address] PCP - General Internal Medicine 02/25/21 documented as of this encounter
--- OUTSIDE RECORDS SUMMARY | 2023-11-24 22:40 | External Medical Summary | Summary of Care ---
Author Name Unknown Organization [facility] Address [address] [facility] [address] Phone [phone] Care Team Providers Care Carbon Printer Name Role Phone Milton Hartley MD Primary Care Provider + Reason for Visit * Reason Comments Adult Annual Wellness Visit, Subsequent Visit Encounter Details Date Type Department Care Team (Late st Contact Info) Description 10/15/2023 1:30 PM EST Nurse Only Ancillary [address] [place] [address] [facility], Nurse [address] [place] [phone] Adult Annual Wellness Visit, Subsequent Visit Allergies Active Allergy Reactions Criticality Noted Date Comments Ariel Inhibitors Cough 03/10/2022 Enalapril Cough 12/14/2022 Mod cough noted on scanned records from pcp Metformin Diarrhea 12/14/2022 Moderate diarrhea per scanned records from PCP Pioglitazone Hcl-Glimepiride 023 Severe SOB noted on scanned records from pcp documented as of this encounter (statuses as of 10/26/2023) Medications Medication Sig Dispensed Refills Start Date [...] a day 200 Each 3 3 Active Potassium 99 MG Oral Tablet Take 1 Tablet by mouth in the morning. 0 10/19/19 24 Discontinued Metoprolol Succinate ER 100 MG Oral Tablet Extended Release 24 Hour (toPROL XL) Take 1 Tablet by mouth in the morning. 0 1 10/15/19 24 Discontinued(Med ication List Clean Up) Atorvastatin Calcium 40 MG Oral Tablet (Lipitor) Take 1 Tablet by mouth at bedtime. 0 1 10/19/19 24 Discontinued(Med ication List Clean Up) Levothyroxine Sodium 200 MCG Oral Tablet (Levoxyl) Take 1 Tablet by mouth in the morning. 0 1 10/15/19 24 Discontinued(Med ication List Clean Up) hydroCHLOROthiazi de 25 MG Oral Tablet (Hydrodiuril) Take 0.5 Tablets by mouth in the morning. 0 1 10/15/19 24 Discontinued(Med ication List Clean Up) NovoLOG Mix 70/30 FlexPen (70-30) 100 UNIT/ML Subcutaneous Suspension Pen-injector 150-200 units twice daily per sliding scale 0 1 10/19/19 24 Discontinued(Med ication List Clean Up) Fluticasone-Salme terol 250-50 MCG/DOSE Inhalation Aerosol Powder Breath Activated Inhale 1 Puff by mouth in the morning and 1 Puff before bedtime. 0 10/19/19 24 Discontinued(Med ication List Clean Up) Apixaban [...] daily 30 Tablet 3 3 10/15/19 24 Discontinued(Med ication List Clean Up) documented as of this encounter (statuses as of 10/26/2023) Active Problems Problem Noted Date Diagnosed Date [...] as of this encounter (statuses as of 10/26/2023) Immunizations Name Administration Dates Next Due COVID-19 mRNA, LNP-s, No Pre serve, 2-Dose Series (Moderna) 11/22/2020,10/25/2020 COVID-19, MRNA-LNP, 23-24, P F, 30 MCG/0.3 mL, 12 YRS AND ABOVE, IM ([facility]) 10/11/2023 COVID-19, mRNA, LNP-s, PF, [...] encounter Patient Instructions * Patient Instructions* Cristal Tellez RN - 10/15/2023 2:24 PM EST Diabetes: Keeping [...] calluses yourself. Talk to your doctor or lifestyle consultant (a doctor who specializes in foot care) [...] the area doesnt appear to be healing. [id number] [employer], [address] [place] [address], [place] [address]. All rights reserved. This information is not [...] 130.0 MG/DL LDL ([facility])-OUTSIDE LAB HEMOGLOBIN, [id number] LAB PHOSPHORUS-OUTSIDE LAB PTH-OUTSIDE LAB MICROALBUMIN RATIO-OUTSIDE LAB PROTEIN, UA-OUTSIDE LAB HEMOGLOBIN-OUTSIDE LAB 16.66 12.55 - 16.99 Sincerely, Mitlon Hartley MD 10/15/2023 [facility] Calendar (as of Visit date not found [...] your insurance company to determine what's covered. [employer] is a great tool that helps you review your medical record online, including test results, doctor notes and your health summary. You can also schedule appointments with me and other members of your care team, request prescription refills and ask for advice related to your medical conditions at [email or web address]. documented in this encounter Progress Notes * [...] Patient refused multiple times, discuss concerns about PA and stroke and patient states he understands [...] he states he did see someone in [place] and he will never go back there [...] Laterality Date ANESTH,LUMBAR/VENTRAL HERNIA REPAIR CATARACT SURGERY,COMPLEX FL APPENDECTOMY FL TONSILLECTOMY & ADENOIDECTOMY LESS THAN AGE 12 [...] MCG/0.3 mL, 12 YRS AND ABOVE, IM ([facility]) 10/11/2023 COVID-19, mRNA, LNP-s, PF, Booster, 100mcg/0.5mg (Moderna) 08/05/2021, 01/13/2022 Covid-19, Mrna, Lnp-s, Pf, Bivalent, 30 Mcg, IM, 12 yrs and above ([employer]) 07/14/2022 Seasonal Influenza, Trivalent, Adjuvanted, 65+ yrs [...] mellitus with HbA1C goal to be determined ([facility]) E11.9 Paroxysmal A-fib ([facility]) I48.0 Dyslipidemia E78.5 Type II diabetes mellitus with peripheral autonomic neuropathy ([facility]) E11.43 Hypothyroidism E03.9 Polycythemia D75.1 BPH (benign [...] for Obstructive Sleep Apnea Patient states his sba business development officer, Karan Cunningham highly recommend patient have a sleep study to evaluate for apnea, patient does not believe he has apnea Patient and Caregiver Support System: Patient lives with a spouse Means of Transportation: Drives. Not a concern. Patient lives in One Story - with basement stairs: 2 railings Community Resources: Not Applicable, I did give the patient Area on [employer] phone #, patient states son helps [...] medications Visually impaired Older than age 70 Fqr-Na-lwf-Go Test: Time began at 1330. Patient stood from sitting position and walked approximately 10 feet, returned and sat down. Total time for zrj-gl-ycn-go test was 10 seconds. Fkq-Xm-zog-Go Test completed? Yes Gender Specific Preventative Plan: [...] Functional assessment - patient still works with [employer] 3-8 hrs a day. Falls Risk screening [...] look into getting the shingrix completed. In [facility] I do have thatpatient got one [...] - pt to continue present medications. Per [facility] last lipids were on 02/16 Triglycerides [...] control Last A1C I could fine in [facility] was 09/17 was 7.7, patient thought [...] my annual wellness visit note to Milton Hartely MD at [phone] Follow Up: Return in 1 year (on 10/15/2024) for 12 month Subsequent Adult Wellness Visit. | For: 12 month Subsequent Adult Wellness Visit | Check-out note: 12 month Subsequent Adult Wellness Visit Would patient like to schedule next AWV visit? Yes Cristal Tellez RN documented in this encounter Plan of Treatment Upcoming Encounters Date Type Department Care Team (Late st Contact Info) Description 10/28/2023 3:30 PM EST Office Visit Cardiology [address] [place] [address] Karan Cunningham PA-C [address] [place] [address] 11/30/2023 10:20 AM EST Laboratory Laboratory [address] [place] [phone] [facility] [address] [place] [address] 02/10/2024 1:00 PM EDT Office Visit Cardiology [address] [place] [address] Karan Cunningham PA-C [address] [place] [address] Health Maintenance Due Date Last Done Comments [...] uncontrolled documented in this encounter Care Teams Carbon Printer Relationship Specialty Start Date End Date Milton Hartley MD [address] [place] [address] [place] [address] PCP - General Internal Medicine 02/25/21 documented as of this encounter
--- OUTSIDE RECORDS SUMMARY | 2023-11-24 22:40 | External Medical Summary | Summary of Care ---
Author Name Unknown Organization [facility] Address [address] [place] [address] Phone [phone] Care Team Providers Care Aluminizer Name Role Phone Milton Hartley MD Primary Care Provider + Reason for Visit * Reason Onset Date Comments Follow Up 10/26/2023 Letter received from patient and scanned in. Encounter Details Date Type Department Care Team (Late st Contact Info) Description 10/26/2023 Telephone [facility] Medicine [address] [phone] Cristal Tellez, DELORES Follow Up [...] MCG/0.3 mL, 12 YRS AND ABOVE, IM ([employer]) 10/11/2023 COVID-19, mRNA, LNP-s, PF, B ooster, [...] Description 11/30/2023 10:20 AM EST Laboratory Laboratory [address] [place] [phone] [facility] [address] [place] [address] 02/10/2024 1:00 PM EDT Office Visit Cardiology [address] [place] [address] Karan Cunningham PA-C [address] [place] [address] Health Maintenance Due Date Last Done Comments [...] filedocumented as of this encounter Care Teams Aluminizer Relationship Specialty Start Date End Date Milton Hartley MD [address] [place] [address] PCP - General Internal Medicine 02/25/21 documented as of this encounter
--- OUTSIDE RECORDS SUMMARY | 2023-11-24 22:40 | External Medical Summary | Summary of Care ---
Author Name Unknown Organization [facility] Address [address] [facility] [place] [address] Phone [phone] Care Team Providers Care Table Top Tile Setter Name Role Phone Milton Hartley MD Primary Care Provider + Reason for Referral * Precert (Within 10 days (routine)) - Pending Review Specialty Diagnoses / Procedures Referred By Contac t Referred To Contact Radiology Diagnoses Chest pain, unspecified type Procedures NM MYOCARD PERF IMG SPECT MULT STUDIES WITH PHARM INTERV Elsy Abebe PA-C [address] [place] [address] Referral ID Status Reason Start Date Expiration Date Visits Requested Visits Authorized [id number] Pending Review Precert 11/19/2023 999 999 Reason for Visit * Reason Comments Emergency Department Follow-Up [facility] . Elevated TSH on labs. Encounter Details Date Type Department Care Team (Late st Contact Info) Description 10/19/2023 10:00 AM EST Office Visit Cardiology [address] [place] [address] Elsy Abebe PA-C [address] [place] [address] Primary hypertension*; Tachy-agustín syndrome (HCC); Palpitations; HTN, goal below 140/90; Paroxysmal atrial fibrillation (HCC); Dyslipidemia, goal LDL below 70; Hypokalemia; Hypothyroidism due to acquired atrophy of thyroid; Chest pain, unspecified type Allergies Active Allergy Reactions Criticality Noted Date [...] at bedtime 90 Tablet 1 3 Active Levothyroxine Sodium 200 MCG Oral Tablet (Levoxyl) Take one tablet by mouth daily (at least 30 min prior to breakfast or other meds) 90 Tablet 2 3 Active Levothyroxine Sodium 25 MCG Oral Tablet (Levoxyl) take 1 tablet by mouth daily (at least 30 min prior to breakfast or other meds) 90 Tablet 2 3 Active Additional Information Patient taking differently: 50 mcg Oral [id number], Reported on 10/19/2023 Apixaban 5 MG Oral [...] a day 200 Each 3 3 Active [facility] Melatonin Gummies 1 MG Oral Tablet Chewable (Melatonin) Take 3 mg by mouth at bedtime. 0 Active Potassium Chloride Josefina ER 10 MEQ Oral Tablet Extended ReleaseIndication s:Hypokalemia Take 1 Tablet by mouth once a day on Wednesday, Wednesday, and Wednesday only. 14 Tablet 5 4 Active Potassium 99 MG Oral Tablet Take 1 Tablet by mouth in the morning. 0 10/19/19 24 Discontinued Atorvastatin Calcium 40 MG Oral Tablet (Lipitor) Take 1 Tablet by mouth at bedtime. 0 1 10/19/19 24 Discontinued(Med ication List Clean Up) NovoLOG Mix 70/30 FlexPen (70-30) 100 UNIT/ML Subcutaneous Suspension Pen-injector 150-200 units twice daily per sliding scale 0 1 10/19/19 24 Discontinued(Med ication List Clean Up) Fluticasone-Salme terol 250-50 MCG/DOSE Inhalation Aerosol Powder Breath Activated Inhale 1 Puff by mouth in the morning and 1 Puff before bedtime. 0 10/19/19 24 Discontinued(Med ication List Clean Up) documented [...] MCG/0.3 mL, 12 YRS AND ABOVE, IM ([facility]) 10/11/2023 COVID-19, mRNA, LNP-s, PF, B ooster, 100mcg/0.5mg (Moderna) 01/13/2022,08/05/2021 Covid-19, Mrna, Lnp-s, Pf, B ivalent, 30 Mcg, IM, 12 yrs and above ([employer]) 07/14/2022 Seasonal Influenza, Trivalent, Adjuvanted, 65+ y [...] Sign Reading Time Taken Comments Blood Pressure 124/78 10/19/2023 10:03 AM EST Pulse 84 10/19/2023 10:03 AM EST Temperature - - Respiratory Rate 16 10/19/2023 10:03 AM EST Oxygen Saturation - - Inhaled Oxygen Concentration - - Weight 93.2 kg (205 lb 6.4 oz) 10/19/2023 10:03 AM EST Height - - Body Mass Index 32.66 10/15/2023 2:25 PM EST documented in this encounter Progress Notes * Elsy Abebe PA-C - 10/19/2023 10:03 AM EST History of Present Illness: Jessica uDnn is a 83-year-old male here today for cardiology evaluation. Patient seen as an add on, recently with jaw pain that migrated to the left ear, aided by aspirin after about two hours, following recent viral illness at which time he noted minor reoccurrences of PAF (for about a minute after being "rock solid, not even a beap since September." Patient chronically prescribed Eliquis anticoagulation. Blood pressure is variable, labile, self adjusting medications. Patient evaluated at the [facility] on October 16, 2023. EKG without acute change. High sensitivity troponin negative. Blood pressure was mildly elevated on presentation of 154/94 that was well controlled with readings in the 1 teens to 132/75. Chest x-ray was without acute process. Laboratory work notable for borderline potassium, mildly elevated ALT, and an abnormal TSH (10.859) with patient notingsubsequent self titration of levothyroxine from 225 mcg/day to 250 mcg/day on Wednesday, October 17, 2023. Notes feeling better now, today, than he has in the last couple of weeks. Notes mild sensation in the right chest when going to the ER. No activity related chest pain. No unusual shortness of breath. No fluid retention. No lightheadedness, dizziness, near syncope, or syncope. No epistaxis. No hemoptysis. No hematuria. Stools are dark, black, stable, on oral iron replacement therapy. Notes having an incident with his primary care providers epidemiology intern and being fired from Dr. Hartley's medical practice. Past Medical and Surgical History: Paroxysmal atrial fibrillation [id number] (age, HTN, DM) Idioventricular rhythm on zio patch 09/2022 Early signs of Tachy-Agustín Syndrome Evaluated by Electrophysiology on December 11, 2022. Antiarrhythmic therapy reserved for if/when he has more PAF. Permanent pacemaker implantation not felt to be indicated at this juncture. Medications continued without change. EP question ongoing need for aspirin which patient takes on his own accordfor primary prevention. Hypertension Dyslipidemia Type 2 diabetes [...] breakfast or other meds) 90 Tablet 2 Levothyroxine Sodium 25 MCG Oral Tablet (Levoxyl) take 1 tablet by mouth daily (at least 30 min prior to breakfast or other meds) (Patient taking differently: Take 2 Tablets by mouth daily first thing in the morning.) 90 Tablet 2 Apixaban 5 MG Oral [...] mouth. Patient taking oncedaily) 180 Each 3 BD Pen Needle Nikole U/F 32G X 4 MM (Insulin Pen Needle) use to inject insulin twice a day 200 Each 3 [facility] Melatonin Gummies 1 MG Oral Tablet Chewable (Melatonin) Take 3 mg by mouth at bedtime. No current facility-administered medications for this visit. OBJECTIVE/PHYSICAL EXAMINATION: BP 124/78 | Pulse 84 | Resp 16 | Wt 93.2 kg (205 lb 6.4 oz) | BMI 32.66 kg/m | BSA 2.09 m General: Alert. NAD. Comfortable and cooperative. Hard of hearing. Skin: No rash. Eyes: PER. Conjunctiva pink, sclera clear. HENT: Normocephalic. Atraumatic. Neck: No carotid bruits. No JVD. No HJR. Heart: RRR, 76 bpm. No murmur. No rub. No gallop. [...] QTc 453 ms. Chest x-ray at [facility] on October 16, 2023 revealed mild cardiomegaly and bibasilar linear densities consistent with subsegmental atelectasis, without acute process. Laboratory work performed at the [facility] on October 16, 2023: Normal white blood cell count, 7.51. Normal H&H, 16.9 and 49.1. Normal platelet count, 181 K. sodium 137. Potassium 3.6. BUN 25. Creatinine 1.20. Calcium 8.7. Magnesium 2.0. AST 39. ALT mildly elevated at 56. Alk-phos normal at 89. High sensitivity troponin negative at 8.6. TSH elevated at 10.869. Free T4 was normal at 0.97. ASSESSMENT AND RECOMMENDATIONS/PLAN: Paroxysmal atrial fibrillation. Early signs of Tachy-Agustín Syndrome. [id number] [id number] 4 (age, HTN, DM).Chronically prescribed Eliquis anticoagulation. Refer for Zio monitoring. Atypical chest pain. Multiple cardiac risk factors. Refer for Lexiscan nuclear stress testing (unable to ambulate adequately for MONICA, avoiding DSE due to atrial arrhythmias) Borderline hypokalemia. On HCTZ. Discontinue OTC potassium. Start potassium chloride 10 mEq on MWF.Recheck potassium level in 6-8 weeks. Hypothyroidism. Agree with titration of levothyroxine from 225 mcg/day to 250 mcg/day. Recheck TSH in 6-8 weeks. Hypertension, controlled. Dyslipidemia. Prescribed atorvastatin 40 mg/day, followed by PCP, well controlled (LDL 10 circa 8 months ago) Type 2 diabetes mellitus with neuropathy. Followed by PCP. Polycythemia Suspected underlying obstructive sleep apnea. BPH with lower urinary tract symptoms. As per PCP. GERD Chart history of asthma Routine cardiology follow-up in 6 months or as needed. ER with emergencies. Elsy Abebe PA-C Department of Cardiology I spent a total of 30-39 minutes (exact time 37 mins) on the date of service in preparation, delivery, and documentation of the care provided to Jessica Dunn excluding any time spent in the performance of separately billed services. This chart was completed in part utilizing [employer] Speech Voice Recognition Software. Grammatical errors, random [...] Nursing Notes * Sergio Umaña LPN - 10/19/2023 10:02 AM EST Patient identified by full name and date of Chief Complaint Patient presents with Emergency Department Follow-Up [facility] 10/16/23. Elevated TSH on labs. Examination Room: 3 Name: Jessica Dunn Date of : (1940). Reason for Visit: Ed follow up Interim Hospitalization(s): [facility] 10/16/23 Problems/Concerns: See chief complaint Chest Pain/SOB: See chief complaint [facility] Discussed: Yes [facility] is a way you can talk to [...] encounter Miscellaneous Notes * Addendum Note - Elsy Abebe PA-C - 10/19/2023 11:04 AM ESTAddended by: ELSY ABEBE on: 10/19/2023 11:04 AM Modules accepted: Orders documented in this encounter Plan of Treatment Upcoming Encounters Date Type Department Care Team (Late st Contact Info) Description 11/30/2023 10:20 AM EST Laboratory Laboratory [address] [place] [phone] [place] [address] 02/10/2024 1:00 PM EDT Office Visit Cardiology [address] [place] [address] Elsy Abebe PA-C [address] [place] [phone] Scheduled Orders Name Type Priority Associated Diagnoses Orde r Schedule BASIC METABOLIC PANEL Lab Routine Hypokalemia Expected: 11/19/2023, Expires: 10/19/2024 MAGNESIUM Lab Routine Hypokalemia Expected: 11/19/2023, Expires: 10/19/2024 TSH Lab Routine Hypothyroidism due to acquired atrophy of thyroid Expected: 10/19/2023, Expires: 10/19/2024 NM MYOCARD PERF IMG SPECT MULT STUDIES WITH PHARM INTERV Cardiology Routine Chest pain, unspecified type Expected: 11/19/2023 (Approximate), Expires: 11/19/2024 EXTERNAL EKG 2 TO 7 DAYS Holter Routine Tachy-agustín syndrome (HCC) Palpitations Paroxysmal atrial fibrillation (HCC) Expected: 10/20/2023 (Approximate), Expires: 10/19/2024 Health Maintenance Due Date Last Done Comments [...] as of this encounter Visit Diagnoses Diagnosis Primary hypertension- Primary Unspecified essential hypertension Tachy-agustín syndrome (HCC) Sinoatrial node dysfunction Palpitations HTN, goal below 140/90 Unspecified essential hypertension Paroxysmal atrial fibrillation (HCC) Atrial fibrillation Dyslipidemia, goal LDL below 70 Other and unspecified hyperlipidemia Hypokalemia Hypopotassemia Hypothyroidism due to acquired atrophy of thyroid Chest pain, unspecified type documented in this encounter Care Teams Table Top Tile Setter Relationship Specialty Start Date End Date Milton Hartley MD [address] [place] [address] PCP - General Internal Medicine 02/25/21 documented as of this encounter
--- OUTSIDE RECORDS SUMMARY | 2023-11-24 22:40 | External Medical Summary | Summary of Care ---
Author Name Unknown Organization [facility] Address [address] [facility] [place] [address] Phone [phone] Care Team Providers Care Agricultural Economics Teacher Name Role Phone Milton Hartley MD Primary Care Provider + Reason for Visit * Reason Onset Date Comments Test Results 10/25/2023 Encounter Details Date Type Department Care Team (Late st Contact Info) Description 10/25/2023 Telephone Cardiology, [facility] [address] [place] [address] Karan Cunningham PA-C [address] [place] [address] Test Results Allergies Active Allergy Reactions Criticality [...] Information Patient taking differently: 50 mcg Oral [id number], Reported on 10/19/2023 Apixaban 5 MG Oral [...] MCG/0.3 mL, 12 YRS AND ABOVE, IM ([facility]) 10/11/2023 COVID-19, mRNA, LNP-s, PF, [...] for 10/28 at 3:30 with Karan in [facility]. * Telephone Encounter - Sergio Umaña LPN - 10/25/2023 9:56 AM EST Sent patient a [facility] message to make aware. Scheduling please assist. [...] testing. Recommend an in office visit, in [place] if possible, to discuss results and management - referral for cardiac catheterization versus ongoing medical management. documented in this encounter Plan of Treatment Upcoming Encounters Date Type Department Care Team (Late st Contact Info) Description 10/28/2023 3:30 PM EST Office Visit Cardiology [address] [place] [phone] Karan Cunningham PA-C [address] [place] [address] 11/30/2023 10:20 AM EST Laboratory Laboratory [address] [place] [phone] [address] [place] [address] 02/10/2024 1:00 PM EDT Office Visit Cardiology [address] [place] [address] Karan Cunningham PA-C [address] [place] [address] Health Maintenance Due Date Last Done Comments [...] filedocumented as of this encounter Care Teams Agricultural Economics Teacher Relationship Specialty Start Date End Date Smeal, Milton Roberto, MD [address] [place] [address] PCP - General Internal Medicine 02/25/21 documented as of this encounter
--- OUTSIDE RECORDS SUMMARY | 2023-11-24 22:40 | External Medical Summary | Summary of Care ---
Author Name Unknown Organization [facility] Address [address] [facility] [place] [address] Phone [phone] Care Team Providers Care Sign Wirer Name Role Phone Milton Hartley MD Primary Care Provider + Encounter Details Date Type Department Care Team (Late st Contact Info) Description 10/20/2023 Orders Only PATIENT PORTAL DO NOT DELETE THIS DEPT USED BY [place] [id number] Allergies Active Allergy Reactions Criticality Noted Date Comments Ariel Inhibitors Cough 03/10/2022 Enalapril Cough 12/14/2022 Mod cough noted on scanned records from pcp Metformin Diarrhea 12/14/2022 Moderate diarrhea per scanned records from PCP Pioglitazone Hcl-Glimepiride 023 Severe SOB noted on scanned records from pcp documented as of this encounter (statuses as of 10/20/2023) Medications Medication Sig Dispensed Refills Start Date [...] Information Patient taking differently: 50 mcg Oral [id number], Reported on 10/19/2023 Apixaban 5 MG Oral [...] as of this encounter (statuses as of 10/20/2023) Active Problems Problem Noted Date Diagnosed Date [...] as of this encounter (statuses as of 10/20/2023) Immunizations Name Administration Dates Next Due COVID-19 mRNA, LNP-s, No Pre serve, 2-Dose Series (Moderna) 11/22/2020,10/25/2020 COVID-19, MRNA-LNP, 23-24, P F, 30 MCG/0.3 mL, 12 YRS AND ABOVE, IM ([employer]) 10/11/2023 COVID-19, mRNA, LNP-s, PF, B ooster, 100mcg/0.5mg (Moderna) 01/13/2022,08/05/2021 Covid-19, Mrna, Lnp-s, Pf, B ivalent, 30 Mcg, IM, 12 yrs and above ([employer]) 07/14/2022 Seasonal Influenza, Trivalent, Adjuvanted, 65+ y [...] Team (Late st Contact Info) Description 10/22/2023 8:30 AM EST [facility] [address] [place] [address] Gw, Excess Time Radiology [address] [place] [address] 11/30/2023 10:20 AM EST Laboratory Laboratory [address] [place] [phone] [address] [place] [address] 02/10/2024 1:00 PM EDT Office Visit Cardiology [address] [place] [address] Karan Cunningham PA-C [address] [place] [address] Health Maintenance Due Date Last Done Comments [...] filedocumented as of this encounter Care Teams Sign Wirer Relationship Specialty Start Date End Date Milton Hartley MD [address] [place] [address] PCP - General Internal Medicine 02/25/21 documented as of this encounter
--- OUTSIDE RECORDS SUMMARY | 2023-11-24 22:40 | External Medical Summary | Summary of Care ---
Author Name Unknown Organization [facility] Address [address] [facility] [place] [address] Phone [phone] Care Team Providers Care Director Franchise Sales Name Role Phone Milton Hartley MD Primary Care Provider + Reason for Referral * Precert (Within 10 days (routine)) - Pending Review Specialty Diagnoses / Procedures Referred By Contac t Referred To Contact Radiology Diagnoses Chest pain, unspecified type Procedures NM MYOCARD PERF IMG SPECT MULT STUDIES WITH PHARM INTERV Elsy Abebe PA-C [address] [place] [address] Referral ID Status Reason Start Date Expiration Date Visits Requested Visits Authorized [id number] Pending Review Precert 11/19/2023 999 [id number] Reason for Visit * Reason Comments Emergency Department Follow-Up [facility] . Elevated TSH on labs. Encounter Details Date Type Department Care Team (Late st Contact Info) Description 10/19/2023 10:00 AM EST Office Visit Cardiology [address] [place] [address] Elsy Abebe PA-C [address] [place] [address] Primary hypertension*; Tachy-agustín syndrome (HCC); Palpitations; HTN, [...] Information Patient taking differently: 50 mcg Oral [id number], Reported on 10/19/2023 Apixaban 5 MG Oral [...] MCG/0.3 mL, 12 YRS AND ABOVE, IM ([facility]) 10/11/2023 COVID-19, mRNA, LNP-s, PF, B ooster, 100mcg/0.5mg (Moderna) 01/13/2022,08/05/2021 Covid-19, Mrna, Lnp-s, Pf, B ivalent, 30 Mcg, IM, 12 yrs and above ([facility]) 07/14/2022 Seasonal Influenza, Trivalent, Adjuvanted, 65+ y [...] AM EST History of Present Illness: Jessica Dunn [...] adjusting medications. Patient evaluated at the [facility] on October 16, 2023. EKG without [...] an incident with his primary care providers medical office receptionist assistant and being fired from Dr. Hartley's medical practice. Past Medical and Surgical History: Paroxysmal atrial fibrillation [id number] 4 (age, HTN, DM) Idioventricular rhythm on [...] QTc 453 ms. Chest x-ray at [facility] on October 16, 2023 revealed mild cardiomegaly and bibasilar linear densities consistent with subsegmental atelectasis, without acute process. Laboratory work performed at the [facility] on October 16, 2023: Normal white [...] atrial fibrillation. Early signs of Tachy-Agustín Syndrome. [id number]- VASc 4 (age, HTN, DM).Chronically prescribed Eliquis [...] This chart was completed in part utilizing [employer] Voice Recognition Software. Grammatical errors, random [...] Patient presents with Emergency Department Follow-Up [facility] 10/16/23. Elevated TSH on labs. Examination Room: 3 Name: Jessica Dunn Date of : (1940). Reason for Visit: Ed follow up Interim Hospitalization(s): [facility] 10/16/23 Problems/Concerns: See chief complaint Chest [...] Description 11/30/2023 10:20 AM EST Laboratory Laboratory [address] [place] [phone] [place] [address] 02/10/2024 1:00 PM EDT Office Visit Cardiology [address] [place] [address] Elsy Abebe PA-C [address] [place] [address] Scheduled Orders Name Type Priority Associated Diagnoses [...] type documented in this encounter Care Teams Director Franchise Sales Relationship Specialty Start Date End Date Milton Hartley MD [address] [place] [address] PCP - General Internal Medicine 02/25/21 documented as of this encounter
--- OUTSIDE RECORDS SUMMARY | 2023-11-24 22:41 | External Medical Summary | Summary of Care ---
Author Name Unknown Organization [facility] Address [address] [address] Phone [phone] Care Team Providers Care Plaster Caster Name Role Phone Milton Hartley MD Primary Care Provider + Reason for Visit * Reason Comments Follow Up 6 month follow up. H eartburn intermittent. One episode months ago with some pain in left arm and chest but follow up with PCP- has not occurred since. Encounter Details Date Type Department Care Team (Late st Contact Info) Description 08/05/2023 1:30 PM EST Office Visit Cardiology [address] [place] [phone] Karan Cunningham PA-C [address] [place] [address] Paroxysmal atrial fibrillation (HCC)*; Tachy-agustín syndrome (HCC); Primary hypertension; Palpitations; HTN, goal below 140/90; Dyslipidemia, goal LDL below 70 Allergies Active Allergy Reactions Criticality Noted Date Comments Ariel Inhibitors Cough 03/10/2022 Enalapril Cough 12/14/2022 Mod cough noted on scanned records from pcp Metformin Diarrhea 12/14/2022 Moderate diarrhea per scanned records from PCP Pioglitazone Hcl-Glimepiride 023 Severe SOB noted on scanned records from pcp documented as of this encounter (statuses as of 08/07/2023) Medications Medication Sig Dispensed Refills Start Date [...] mouth in the morning. 0 08/10/2022 Active Losartan Potassium 25 MG Oral Tablet (Cozaar) Take one tablet by mouth once daily 30 Tablet 3 09/29/2022 Active BD Pen Needle Nikole U/F 32G X 4 MM (Insulin Pen Needle) use one pen needle to inject medication under the skin once daily 100 Each 2 11/30/2022 Active Atorvastatin Calcium 40 MG Oral Tablet [...] mouth daily 45 Tablet 2 05/25/2023 Active documented as of this encounter (statuses as of 08/07/2023) Active Problems Problem Noted Date Diagnosed Date [...] as of this encounter (statuses as of 08/07/2023) Immunizations Name Administration Dates Next Due COVID-19 mRNA, LNP-s, No Pre serve, 2-Dose Series (Moderna) 11/22/2020,10/25/2020 COVID-19, mRNA, LNP-s, PF, B ooster, 100mcg/0.5mg [...] Sign Reading Time Taken Comments Blood Pressure 130/74 08/05/2023 1:32 PM EST Pulse 76 08/05/2023 1:32 PM EST Temperature - - Respiratory Rate 16 08/05/2023 1:32 PM EST Oxygen Saturation - - Inhaled Oxygen Concentration - - Weight 94.5 kg (208 lb 4.8 oz) 08/05/2023 1:32 P M EST Height - - Body Mass Index 33.12 10/14/2022 1:34 PM EST documented in this encounter Progress Notes * Karan Cunningham PA-C - 08/05/2023 1:33 PM EST History of Present Illness: Jessica Dunn is a 83-year-old male here today for cardiology follow-upevaluation. Patient hospitalized at [facility] in August 2022 with Influenza A with associated volume depletion and paroxysmal atrial fibrillation. September 2022 Zio monitor: Patient had a [...] (<1.0%,4), and no VE Couplets were Present. Evaluated by electrophysiology on December 11, 2022. Antiarrhythmic therapy reserved for if/when he has more PAF. Permanent pacemaker implantation not felt to be indicated at this juncture. Medications continued without change. EP question ongoing need for aspirin which patient takes on his own accordfor primary prevention. Patient returns today, 08/05/2023, feeling OK. - Shingles across the right chest and under the arm in December 2022. Still getting a couple of itchy spots. - Covid again about one month ago, symptoms lasted 4-5 days, not requiring intervention, feeling good once the sore throat cleared - Heartburn three times over the last few weeks, possibly aggravated by strawberries, aided by Tums - No activity related chest pain. Still working, running wires, climbing ladders. - No palpitations since October. - No unusual shortness of breath. - No fluid retention. - No excessive fatigue, lightheadedness, dizziness, near syncope, or syncope. - No epistaxis, hemoptysis, melena, hematochezia, or hematuria. - Scheduled to see PCP on 09/12/2023 with laboratory work anticipated Past Medical History: Paroxysmal atrial fibrillation [id number] (age, HTN, DM) Idioventricular rhythm on zio patch 09/2022 Early signs of TBS Hypertension Dyslipidemia Type 2 diabetes mellitus with [...] 1 Tablet by mouth in the morning. Metoprolol Succinate ER 100 MG Oral Tablet Extended Release 24 Hour (toPROL XL) Take 1 Tablet by mouth in the morning. NovoLOG Mix 70/30 FlexPen (70-30) 100 UNIT/ML Subcutaneous Suspension Pen- injector 150-200 units twice daily per sliding scale Fluticasone-Salmeterol 250-50 MCG/DOSE Inhalation Aerosol Powder Breath Activated Inhale 1 Puff by mouth in the morning and 1 Puff before bedtime. Losartan Potassium 25 MG Oral Tablet (Cozaar) Take one tablet by mouth once daily 30 Tablet 3 Atorvastatin Calcium 40 MG Oral Tablet [...] two times a day 6 Tablet 0 hydroCHLOROthiazide 25 MG Oral Tablet (Hydrodiuril) Take one-half tablet by mouth daily 45 Tablet 2 Atorvastatin Calcium 40 MG Oral Tablet (Lipitor) Take 1 Tablet by mouth at bedtime. Levothyroxine Sodium 200 MCG Oral Tablet (Levoxyl) Take 1 Tablet by mouth in the morning. hydroCHLOROthiazide 25 MG Oral Tablet (Hydrodiuril) Take 0.5 Tablets by mouth in the morning. Apixaban 5 MG Oral Tablet (Eliquis) Take 1 Tablet by mouth 2 times a day. 64 Tablet 5 Losartan Potassium 25 MG Oral Tablet (Cozaar) take 1 tablet by mouth once daily 30 Tablet 11 Levothyroxine Sodium 25 MCG Oral Tablet (Levoxyl) Take 1 Tablet by mouth in the morning. BD Pen Needle Nikole U/F 32G X 4 MM (Insulin Pen Needle) use one pen needle to inject medication under the skin once daily 100 Each 2 Metoprolol Succinate ER 25 MG Oral Tablet Extended Release 24 Hour (toPROL XL) Take one tablet by mouth once daily. (Patient not taking: Reported on 08/05/2023) 20 Tablet 2 Losartan Potassium 25 MG Oral Tablet (Cozaar) Take one tablet by mouth once daily 30 Tablet 3 No current facility-administered medications for this visit. OBJECTIVE/PHYSICAL EXAMINATION: BP 130/74 | Pulse 76 | Resp 16 | Wt 94.5 kg (208 lb 4.8 oz) | BMI 33.12 kg/m | BSA 2.11 m General: Alert. NAD. Comfortable and cooperative. [...] Limited neurological examination: No focal deficit. Data: January 21, 2023 TTE Interpretation Summary (as per Dr. Caro): The LV wall thickness is normal. The left ventricular wall motion is normal. The qualitative LV ejection fraction is 55-59% (normal). The left ventricular diastolic function is mildly abnormal (grade I). Mild aortic valve sclerosis is present. Aortic stenosis is absent. ASSESSMENT AND RECOMMENDATIONS/PLAN: Paroxysmal atrial fibrillation, quiescent [id number] 4 (age, HTN, DM). Prescribed Eliquis anticoagulation Early signs of Tachy-Agustín Syndrome, asymptomatic. Hypertension. Blood pressure is acceptably controlled. Dyslipidemia. Prescribed moderate intensity statin therapy with atorvastatin 40 mg/day. Followed byPCP. Type 2 diabetes mellitus with neuropathy. Followed by PCP. Polycythemia ? Underlying obstructive sleep apnea. Evaluation discussed, patient considering. Hypothyroidism BPH with lower urinary tract symptoms. As per PCP. GERD Chart history of asthma 5-10 pound weight loss encouraged by next evaluation. Routine cardiology follow-up in 6 months or as needed. ER with emergencies. Karan Cunningham PA-C Department of Cardiology This chart was completed in part utilizing [employer] Speech Voice Recognition Software. Grammatical errors, random word insertions, prounoun errors, and incomplete sentences are an occasional consequence of this system due to software limitations, ambient noise, and hardware issues. Any formal questions or concerns about the content, text, or information contained within the body of this dictation should be directly addressed to the provider for clarification. documented in this encounter Nursing Notes * Sergio Umaña LPN - 08/05/2023 1:30 PM EST Patient identified by full name and date of Chief Complaint Patient presents with Follow Up 6 month follow up. Heartburn intermittent. One episode months ago with some pain in left arm and chest but follow up with PCP- has not occurred since. Examination Room: 3 Name: Jessica Dunn Date of : (1940). Reason for Visit: 6 month follow up Interim Hospitalization(s): Denies Problems/Concerns: See chief complaint Chest Pain/SOB: See chief complaint [facility] Discussed: Yes [facility] is a way you can talk to your provider online through e-mail. Would you like to sign up? I can activate it for you? DECLINES Patient was instructed to not get up [...] Care Team (Late st Contact Info) Description 08/17/2023 1:30 PM EST Office Visit Cardiology, [facility] [address] [place] [address] Rianna Cortez CRNP [address] [facility] [place] [phone] 10/15/2023 1:30 PM EST Nurse Only Ancillary [address] [place] [address] [place], Nurse [address] [place] [phone] 02/10/2024 1:00 PM EDT Office Visit Cardiology [address] [place] [address] Karan Cunningham PA-C [address] [place] [address] Health Maintenance Due Date Last Done Comments HbA1c 1946 Pneumococcal Vaccine: 65+ Years (1 - PCV) 1946 Depression Screening 1952 Albumin/Creatinine Ratio 1958 Diabetic Foot Exam 1958 Hepatitis B (1 of 3 - Risk 3-dose series) 2000 Zoster Vaccines (2 of 2) 12/01/2021 10/06/2021 TSH 02/25/2022 02/25/2021 DTaP,Tdap,and Td Vaccines (1 - Tdap) 06/24/2022 06/23/2022 *SPIROMETRY ONCE FOR ASTHMA-ADULT 10/17/2022 COVID-19 Vaccine (6 - 2022-24 season) 2023 07/14/2022, 01/13/2022, 08/05/2021, Additional history exists Influenza Vaccine (FLU shot) (#1) 2023 10/06/2021 Diabetic Eye Exam 11/19/2023 11/19/2022 GFR 02/10/2024 02/09/2023, 02/25/2021 GARDASIL-HPV IMMUNIZATION SERIES Aged Out No longer eligible based on patient's age to complete this topic MENINGOCOCCAL (MENACTRA/MENVEO) Aged Out No longer eligible based on patient's age to complete this topic documented as of this encounter Medical Devices Not on filedocumented as of this encounter Visit Diagnoses Diagnosis Paroxysmal atrial fibrillation (HCC)- Primary Atrial fibrillation Tachy-agustín syndrome (HCC) Sinoatrial node dysfunction Primary hypertension Unspecified essential hypertension Palpitations HTN, goal below 140/90 Unspecified essential hypertension Dyslipidemia, goal LDL below 70 Other and unspecified hyperlipidemia documented in this encounter Care Teams Plaster Caster Relationship Specialty Start Date End Date Milton Hartley MD [address] [place] [address] PCP - General Internal Medicine 02/25/21 documented as of this encounter"
--- OUTSIDE RECORDS SUMMARY | 2023-11-24 22:41 | External Medical Summary | Summary of Care ---
Author Name Unknown Organization [facility] Address [address] [facility] [place] [address] Phone [phone] Care Team Providers Care Tobacco Wrapping Machine Tender Name Role Phone Milton Hartley MD Primary Care Provider + Reason for Visit * Reason Comments Medication Refill Encounter Details Date Type Department Care Team (Late st Contact Info) Description 09/23/2023 Refill Cardiology [address] [place] [phone] Elsy Abebe PA-C [address] [place] [phone] Primary hypertension* Allergies Active Allergy Reactions Criticality Noted Date Comments Ariel Inhibitors Cough 03/10/2022 Enalapril Cough 12/14/2022 Mod cough noted on scanned records from pcp Metformin Diarrhea 12/14/2022 Moderate diarrhea per scanned records from PCP Pioglitazone Hcl-Glimepiride 023 Severe SOB noted on scanned records from pcp documented as of this encounter (statuses as of 09/23/2023) Medications Medication Sig Dispensed Refills Start Date [...] mouth in the morning. 0 11/27/2020 Active hydroCHLOROthiazid e 25 MG Oral Tablet (Hydrodiuril) Take 0.5 Tablets by mouth in the morning. 0 11/25/2020 Active NovoLOG Mix 70/30 FlexPen (70-30) 100 UNIT/ML Subcutaneous Suspension Pen-injector 150-200 units twice daily per sliding scale 0 02/19/2021 Active Fluticasone-Salmet sadie 250-50 MCG/DOSE Inhalation Aerosol Powder Breath Activated Inhale 1 Puff by mouth in the morning and 1 Puff before bedtime. 0 Active Apixaban 5 MG Oral Tablet (Eliquis) Take 1 Tablet by mouth 2 times a day. 64 Tablet 5 09/11/2021 Active Losartan Potassium 25 MG Oral Tablet (Cozaar)Indication s:HTN, goal below 140/90 take 1 tablet by [...] Active Losartan Potassium 25 MG Oral Tablet (Cozaar)Indication s:Primary hypertension Take one tablet by mouth once daily 30 Tablet 3 09/23/2023 Active Losartan Potassium 25 MG Oral Tablet (Cozaar) Take one tablet by mouth once daily 30 Tablet 3 09/29/2022 3 Discontinue d(Refill) documented as of this encounter (statuses as of 09/23/2023) Active Problems Problem Noted Date Diagnosed Date [...] as of this encounter (statuses as of 09/23/2023) Immunizations Name Administration Dates Next Due COVID-19 mRNA, LNP-s, No Pre serve, 2-Dose Series (Moderna) 11/22/2020,10/25/2020 COVID-19, mRNA, LNP-s, PF, B ooster, 100mcg/0.5mg (Moderna) 01/13/2022,08/05/2021 Covid-19, Mrna, Lnp-s, Pf, B ivalent, 30 Mcg, IM, 12 yrs and above ([employer]) 07/14/2022 Seasonal Influenza, Trivalent, Adjuvanted, 65+ y [...] Telephone Encounter - Elsy Abebe PA-C - 09/23/2023 1:44 PM ESTSigned Prescriptions: Disp Refills Losartan Potassium 25 MG Oral Tablet (Coza*30 Tab*3 Sig: Take one tablet by mouth once daily Authorizing Provider: ELSY ABEBE * Telephone Encounter - Jonelle Campbell LPN - 09/23/2023 11:32 AM ESTPending Prescriptions: Disp Refills Losartan Potassium 25 MG Oral Tablet (Coza*30 Tab*3 Sig: Take one tablet by mouth once daily * Telephone Encounter - Jonelle Campbell LPN - 09/23/2023 11:31 AM EST Did you pend patient's preferred pharmacy and medication before forwarding?yes Pharmacy: [facility] Pending Prescriptions: Disp Refills Losartan Potassium 25 MG Oral Tablet (Coz*30 Tab*3 Sig: Take one tablet by mouth once daily Last Visit: 08/05/2023 (in office), Visit date not found (telemedicine) Next Visit: 02/10/2024 If no future appointments scheduled, and last appointment is greater than a year ago, please schedule patient for a follow-up appointment Last date the medication was ordered: Is this request for a controlled substance?No Urine Drug Screen:No results found for this or any previous visit. Patient Phone Numbers Labs: Lab Results Component Value Date/Time CREAT 1.13 02/09/2023 12:00 AM POTASSIUM 4.1 02/09/2023 12:00 AM TSH 5.16 (H) 02/25/2021 10:57 AM LDLCALC 10 02/09/2023 12:00 AM ALT 42 02/25/2021 10:57 AM documented in this encounter Plan of Treatment Upcoming Encounters Date Type Department Care Team (Late st Contact Info) Description 10/15/2023 1:30 PM EST Nurse Only Ancillary [address] [place] [address] [place], Nurse Annual [address] [place] [address] 02/10/2024 1:00 PM EDT Office Visit Cardiology [address] [place] [address] Elsy Abebe PA-C [address] [place] [address] Health Maintenance Due Date Last Done Comments HbA1c 1946 Pneumococcal Vaccine: 65+ Years (1 - PCV) 1946 Depression Screening 1952 Albumin/Creatinine Ratio 1958 Diabetic Foot Exam 1958 Hepatitis B (1 of 3 - Risk 3-dose series) 2000 Zoster Vaccines (2 of 2) 12/01/2021 10/06/2021 TSH 02/25/2022 02/25/2021 DTaP,Tdap,and Td Vaccines (1 - Tdap) 06/24/2022 06/23/2022 *SPIROMETRY ONCE FOR ASTHMA-ADULT 10/17/2022 COVID-19 Vaccine ( season) 2023 07/14/2022, 01/13/2022, 08/05/2021, Additional history [...] Diagnosis Primary hypertension- Primary Unspecified essential hypertension documented in this encounter Care Teams Tobacco Wrapping Machine Tender Relationship Specialty Start Date End Date Milton Hartley MD [address] [place] [address] PCP - General Internal Medicine 02/25/21 documented as of this encounter
[2023-11-25 07:00] LABS: Basophils # (auto) 0.05 K/uL (0.00-0.20); Basophils % (auto) 0.8 %; Eosinophils # (auto) 0.25 K/uL (0.00-0.50); Eosinophils % (auto) 3.9 %; Hematocrit (blood only) 47.7 % (42.0-52.0); Hemoglobin 16.5 g/dl (14.0-18.0); Immature Granulocytes # (auto) 0.02 K/uL (0.01-0.20); Immature Granulocytes % (auto) 0.3 %; Lymphocytes # (auto) 1.23 K/uL (1.20-3.40); Mean Corpuscular Hgb Conc 34.6 g/dL (32.0-36.0); Mean Corpuscular Volume 89.5 fL (80.0-100.0); Mean Platelet Volume 9.8 fL (9.4-12.4); Monocytes # (auto) 0.58 K/uL (0.11-0.59); Neutrophils # (auto) 4.34 K/uL (1.40-6.50); Platelet Count 163 K/uL (130-400); RDW Coefficient of Variation 13.7 % (11.5-14.5); RDW Standard Deviation 45.2 fL (36.4-46.3); Red Blood Count 5.33 M/uL (4.70-6.10); White Blood Count 6.47 K/ul (4.8-10.8)
[2023-11-25 07:04] LABS: BUN Creatinine Ratio 18.5 (10-20); Calcium 8.9 mg/dl (8.6-10.3); Creatinine Clr Calc Pharmacy 55.7 ml/min; Est GFR (African American) 73.2 ml/min; Est GFR (Non-African American) 63.1 ml/min; Magnesium 1.9 mg/dl (1.7-2.4); Phosphorus 3.3 mg/dl (2.5-4.9); Potassium 3.8 mmol/L (3.5-5.1)
[2023-11-25] MEDS: ASPIRIN 81 MG ECTAB PO SCH (07:45)
[2023-11-25] MEDS: CLOPIDOGREL BISULFATE 75 MG TAB PO SCH (07:45)
[2023-11-25] MEDS: FERROUS SULFATE 325 MG TAB PO SCH (07:45)
[2023-11-25] MEDS: METOPROLOL SUCC 50MG EXT REL TAB PO SCH (07:46)
[2023-11-25] MEDS: hydroCHLOROthiazide 25 MG TAB PO SCH (07:48)
--- NOTE | 2023-11-25 12:48 | Electrocardiogram Report ---
Test Reason : Blood Pressure : / mmHG Vent. Rate : 060 BPM Atrial Rate : 060 BPM P-R Int : 146 ms QRS Dur : 072 ms QT Int : 468 ms P-R-T Axes : 038 063 070 degrees QTc Int : 468 ms Normal sinus rhythm Normal ECG When compared with ECG of 16-OCT-2023 18:37, No significant change was found Confirmed by Royer Lawler ([id number]) on 11/25/2023 12:48:36 PM Referred By: Karan Cunningham Confirmed By:Royer Lawler
--- NOTE | 2023-11-25 14:16 | Discharge Summary ---
Date of Service November 25, 2023 Admission HPI Per Admitting Provider Mr. Dunn is an 83-year-old male that was admitted directly after cardiac catheterization for atypical chest pain with exertional dyspnea with an abnormal Lexiscan nuclear stress test showing apical ischemia in the distal LAD and L circumflex which took place 10/22/2023. As an outpatient, risk factors and PCI were discussed at length and patient proceeded for catheterization under the care of of Dr. Bowers and Dr. Isabel today with a drug-eluting stent placed in the LAD. 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 September 2022 Zio monitor was evaluated with underlying rhythm sinus rhythm with 3 SVT runs with a 6 beat max. Father at 51 status post AMI Mom diabetes/CHF at age 76 No tobacco use, alcohol or recreational drug use including medical marijuana. Previous surgical history includes umbilical hernia repair, appendectomy 20 years ago, carpal tunnel surgery 8 years ago. Pt denies THORPE, dizziness, chest pain, palpitations, orthopnea, swelling, lightheadedness, fever, chills, urine or bowel changes, recent falls or trauma. Patient sitting upright in his hospital bed in no apparent distress. His T-band has been removed with no signs of bleeding. Tolerated a diet well with no N/V. Patient admitted for continued evaluation post PCI with JEN to LAD; cardiology to do medically directed therapy post cath. Interventional cardiology added Plavix to medication regimen which was bolused in the phlebotomist medical lab assistant and will continue tomorrow morning, will trend labs in a.m. Admission Exam Per Admitting Provider Neuro: AAOx4, PERRLA, no aphagia, memory changes, CNII-XII grossly intact HEENT: head normocephalic, moist mucus membranes CV: S1/S2, (-) M/G/R, (-) edema, cap refill < 3 seconds Resp: Lungs CTA in all arreguin. On RA GI: Abdomen S/NT/ND, Ax4 bowel sounds, (-) CVA tenderness Musculoskeletal: 5/5 B/L UE strength, 5/5 B/L LE strength. No gait disturbance Skin: (-) rashes , (-) erythema. (+)right tr-band site without bleeding Psych: euthymic mood Principal Diagnosis CAD status post PCI of LAD Discharge Exam Constitutional: WD/WN, vitals as above, NAD, sitting up in bed, pleasant, conversing easily Respiratory: normal respiratory effort, lungs clear to auscultation, no wheeze, rales, rhonchi. Normal insp/exp effort, no accessory muscle use Cardiovascular: RRR, no murmur, no edema Vessels: no JVD or carotid bruit Chest: normal inspection of chest Abdomen: normal bowel sounds, soft, nontender, no hepatosplenomegaly Musculoskeletal: no cyanosis or clubbing, extremities motor strength 5/5 Skin: no rashes, warm and dry normal turgor Neurologic: PERRL, EOMI, accommodation nl, no face palsy, no dysarthria CN's II- XI intact bilaterally and moves all extremities Psychiatric: A+Ox3, euthymic affect Discharge Data Allergies Allergy/AdvReac Type Severity Reaction Status Date / Time No Known Allergies Allergy Unverified 10/16/23 20:29 Consultations 11/24/23 13:33 Consult Hospitalist Routine Procedures Performed Operation Date: 11/24/23 11:00 Actual Procedures p Cineradiography w/Routine Exam - Long Bowers, s Ultrasound Vascular Access - Long Bowers, p Cath, Left with Cors and Vent - Long Bowers, DO p Drug Eluting Stent SGl Vessel - Jaspal Isabel MD Ordered Studies 11/24/23 06:54 CL Cath Imgs for PACS use only Routine Hospital Course (1) CAD (coronary artery disease): (2) A-fib: (3) Chronic anticoagulation: (4) Diabetes: (5) HTN (hypertension): (6) Hypothyroidism: Plan Mr. Dunn is an 83-year-old male that was admitted directly after cardiac catheterization for atypical chest pain with exertional dyspnea with an abnormal Lexiscan nuclear stress test showing apical ischemia in the distal LAD and L circumflex which took place 10/22/2023. Patient underwent successful PCI of mid LAD with a drug-eluting stent. Patient was loaded with Plavix 600 mg in cardiac cath Aspirin was discontinued. Patient was recommended to continue Plavix and Eliquis No other medication changes were done Patient to follow-up with PCP and cardiology as outpatient. Please note the above document was generated using voice recognition software. It may contain grammatical, syntax or spelling errors. Any formal questions or concerns about the content, text or information contained within the body of this dictation should be directly addressed to the provider for clarification Total Time Total Time Spent Total Time Spent (In Minutes): 35 Total Time Includes: Examination of the Patient, Discharge Planning, Medication Reconciliation, Communication With Other Providers and Other Discharge Plan Discharge Items Patient Disposition: Home - Self-Care Reason For Visit: Abnormal Nuclear Stress Test, RASMUSSEN, Chest Pain Discharge Diagnosis: CAD status post PCI Activity: Resume your previous activity Non-emergency contact: Primary Care Provider Call non-emergency contact if: you have any medication questions and your symptoms worsen Follow-up/Referrals: Gilberto Johnson MD [Outside Practitioners] - 12/02/23 10:00 am Diet: Regular Addtl Attending Provider Instructions: You were admitted to the hospital for left heart catheterization. A stent was placed in one of your heart vessels. Following medication has been changed: 1) Stop taking aspirin. 2) You are prescribed Plavix 75 mg once a day. Please continue to take your all other medications as prescribed before An appointment has been set up with your primary care doctor for follow-up. You will also follow-up with cardiology as outpatient. Pending Studies at Discharge: No Stand-Alone Forms: My [facility], Smoking Cessation Medications and DC Order Prescriptions: New clopidogrel 75 mg Tablet 75 mg PO QAM Qty: 60 0RF Continued metoprolol succinate [Toprol XL] 100 mg tablet extended release 24 hr 100 mg PO DAILY insulin asp prt-insulin aspart [Novolog Mix 70-30FlexPen U-100] 100 unit/mL (70-30) insulin pen 150 - 200 unit SUBCUT BID Eliquis 5 mg tablet 5 mg PO BID atorvastatin 40 mg tablet 40 mg PO HS levothyroxine 200 mcg tablet 200 mcg PO DAILY cetirizine 10 mg Tablet 10 mg PO DAILY hydrochlorothiazide 25 mg tablet 12.5 mg PO DAILY calcium carbonate-vitamin D3 600 mg-20 mcg (800 unit) Tablet 1 tab PO DAILY ferrous sulfate [iron] 325 mg (65 mg iron) Tablet 325 mg PO DAILY magnesium 250 mg Tablet 250 mg PO DAILY ascorbic acid (vitamin C) [Vitamin C] 1,000 mg Tablet 1 g PO DAILY cholecalciferol (vitamin D3) [Vitamin D3] 25 mcg (1,000 unit) Tablet 25 mcg PO DAILY vitamin A 2,400 mcg Capsule 2,400 mcg PO DAILY cyanocobalamin (vitamin B-12) [Vitamin B-12] 1,000 mcg Tablet 1,000 mcg PO DAILY selenium 200 mcg Tablet 200 mcg PO DAILY Potassium-99 99 mg Tablet 99 mg PO DAILY Ocuvite Adult 50 Plus 250 mg (90 mg-160 mg) Capsule 1 cap PO DAILY fluticasone propion-salmeterol [Wixela Inhub] 250-50 mcg/dose Blister With Device 1 inh INHALATION BID losartan 25 mg tablet 25 mg PO levothyroxine 50 mcg Capsule 50 mcg PO DAILY Discontinued aspirin [Aspirin Low-Strength] 81 mg Tablet,Delayed Release (Dr/Ec) 81 mg PO DAILY Discharge Orders: Discharge Order (Routine); Ordered 11/25/23 Ordered By: Nas Babb Admission Data Admit Date/Time: 11/24/23 13:30 Attending Provider: Long Bowers Admit Provider: Jaspal Isabel Primary Care Provider: PCP,NO Other Providers: Rita Rangel
--- NOTE | 2023-11-25 14:48 | Cardiology Progress Note ---
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 Continue clopidogrel plus Eliquis. Aspirin may be discontinued at discharge. Continue other cardiovascular medications including metoprolol succinate, hydrochlorothiazide, and atorvastatin. Postcardiac catheterization activity restrictions listed below. No further inpatient cardiac testing or intervention recommended at this time. Outpatient cardiology follow-up in 2 to 4 weeks. ACTIVITY RECOMMENDATIONS: It is common to feel weak and fatigue for a few days. * Do not drive or operate any motorized equipment for the next three days. * Limit stair usage (2 or 3 trips a day only) for the next three days. * Do not lift anything heavier than 10 pounds for the next three days. * Do not engage in vigorous exercise or any sports for the next five days. * You may shower the day after your procedure, but do not immerse the area for three days. Cleanse the site gently with soap and water. SPECIAL CARE INSTRUCTIONS: * You may replace the pressure dressing or band-aid the morning after the procedure. * After your procedure, it is normal to have a small bruise or small lump at the site. Examine your site daily for any change in the bruise or lump, redness, swelling, drainage or numbness. Notify your doctor if any change. BLEEDING: * If there is a small amount of bleeding at the site, lie down and apply firm pressure with a clean cloth for ten minutes. When the bleeding stops, lie quietly keeping the procedure limb straight for six hours. Notify your doctor as soon as possible. * If the bleeding does not stop after ten minutes or if there is a large amount of bleeding or spurting, call 911 immediately. Continue to lie down and hold firm pressure until help arrives. SKIN IRRITATION: * You may experience some redness and/or swelling in the area where radiation was administered. If any skin irritation occurs, please contact your family physician. FOLLOW UP VISIT: Keep any scheduled doctor appointments. Admission and Anticipated Discharge Date Admission Date: November 24, 2023 Subjective Patient seen examined the bedside. Feeling well from a cardiovascular perspective. Denies chest pain or shortness of breath overnight. Telemetry reveals sinus rhythm in the 70s and 80s. Offers no concerns/complaints. Review of Systems Review of Systems: All systems reviewed & are unremarkable except as noted in Subjective Physical Exam Constitutional: well developed and well nourished; no acute distress Respiratory: normal respiratory effort; no respiratory distress and no labored breathing Auscultation: lungs clear to auscultation bilaterally; no crackles, no rales, no rhonchi and no wheezes Cardiovascular: Rate/Rhythm: regular rate and regular rhythm Heart Sounds: normal S1 and normal S2; no murmur Vessels: femoral pulses present and radial pulses present; no JVD and no carotid bruit Extremities: no edema Gastrointestinal (Abdomen): Inspection/Auscultation: abdomen normal to inspection; abdomen not distended Percussion/Palpation: abdomen soft; abdomen nontender, no guarding and abdomen not rigid Neurologic: CN's II-XI intact bilaterally and moves all extremities; no focal motor deficits Results & Data Vital Signs (Past 12 Hours) Vital Signs Temp Pulse Pulse Pulse Resp BP BP 11/25/23 14:22 36.5 C 64 74 18 152/73 H 139/70 11/25/23 11:03 36.5 C 74 18 139/70 11/25/23 08:00 60 11/25/23 08:00 11/25/23 07:24 36.7 C 63 20 138/80 11/25/23 04:02 36.6 C 64 19 152/73 H Pulse Ox O2 Del Method 11/25/23 14:22 95 11/25/23 11:03 95 Room Air 11/25/23 08:00 11/25/23 08:00 Room Air 11/25/23 07:24 95 Room Air 11/25/23 04:02 95 Room Air Laboratory Results CBC 11/25/23 Range/Units 06:03 WBC 6.47 (4.8-10.8) K/ul RBC 5.33 (4.70-6.10) M/uL Hgb 16.5 (14.0-18.0) g/dl Hct 47.7 (42.0-52.0) % Plt Count 163 (130-400) K/uL Neut # (Auto) 4.34 (1.40-6.50) K/uL Lymph # (Auto) 1.23 (1.20-3.40) K/uL Rowan # (Auto) 0.58 (0.11-0.59) K/uL Eos # (Auto) 0.25 (0.00-0.50) K/uL Baso # (Auto) 0.05 (0.00-0.20) K/uL Comprehensive Metabolic Panel 11/25/23 Range/Units 06:03 Sodium 138 (136-145) mmol/L Potassium 3.8 (3.5-5.1) mmol/L Chloride 105 (98-107) mmol/L Carbon Dioxide 25 (21-32) mmol/L BUN 20 (6-23) mg/dl Creatinine 1.08 (0.6-1.4) mg/dl Glucose 80 (70-99(Fasting)) mg/dl Calcium 8.9 (8.6-10.3) mg/dl Intake and Output 11/24/23 11/25/23 11/25/23 22:59 06:59 14:59 Intake Total 150 / 1175 1025 / 1175 360 / 360 Balance 150 / 1175 1025 / 1175 360 / 360 Intake: IV 750 / 750 Sodium Chloride 0.9% 750 ml @ 750 / 750 100 mls/hr IV .[id number] [facility] Rx#: [id number] Oral 150 / 425 275 / 425 360 / 360 Other: # Unmeasured Voids 3 1 Weight 91.4 kg 90.8 kg 90.8 kg Weight Measurement Method Built in [facility] Patient Weight 11/26/23 06:59 Weight 90.8 kg
== END 2023-11-25 15:04 | disposition home or self-care (01) ==
LOC: CC 09:50 → 2S 09:50